=== PATIENT | male | born 1955 | race Caucasian/White ===

== ENCOUNTER 2018-09-01 09:33 | Emergency (ER) | payer MEDICARE, OTHER, SELFPAY ==
[2018-09-01 09:45] VITALS: BP 103/59; PULSE 61; RESP 18; TEMP 36.4; O2SAT 99
[2018-09-01 09:55] LABS: Bilirubin Small (Negative); Blood Trace-intact (Negative); Clarity Clear; Glucose Negative (Negative); Ketones Negative (Negative); Leukocyte Esterase Negative (Negative); Nitrite Negative (Negative); Specific Gravity 1.025 (1.005-1.025); Urobilinogen 0.2 EU/dL (Up TO 0.2)
[2018-09-01 10:15] LABS: Bacteria Negative HPF (Negative); C & S Indicated? No; Casts Negative LPF (Negative); Crystals Negative HPF (Negative); Epithelial Cells Few HPF (Negative); Mucus Negative (Negative); RBC 0-2 (0-2); WBC 0-2 HPF (0-5)
--- NOTE | 2018-09-01 10:29 | ED.GENADUL_ITS ---
Discharge Plan Disposition Patient Disposition: HOME Discharge Details Chief Complaint: Headache Clinical Impression: Right sided temporal headache, Proteinuria Primary Care Provider: Shahzad Domingo ED Provider: Pramod Rider Home Meds and New Rx's Prescriptions: Continued clopidogrel [Plavix] 75 MG tablet 75 mg PO DAILY RF: 0 citalopram 40 MG tablet 40 mg PO DAILY RF: 0 aspirin [Aspir-81] 81 MG tablet,delayed release (DR/EC) 81 mg PO DAILY RF: 0 levothyroxine 25 MCG tablet 75 mcg PO DAILY RF: 0 calcitriol 0.25 MCG capsule 0.25 mcg PO DAILY RF: 0 atorvastatin [Lipitor] 40 MG tablet 40 mg PO DAILY RF: 0 carvedilol 6.25 MG tablet 6.25 mg PO BID RF: 0 levetiracetam [Keppra] 250 MG tablet 500 mg PO BID RF: 0 levetiracetam [Keppra] 500 MG tablet 500 mg PO .AM MO// RF: 0 pantoprazole 40 MG tablet,delayed release (DR/EC) 40 mg PO DAILY RF: 0 Discharge Instructions Instructions: General Headache (ED) Additional Instructions: Your work-up in the emergency department today demonstrated increased blood flow on your CAT scan without any evidence of acute pathology. It has been recommended by the radiologist should your symptoms of headache persist that you follow-up with your primary care provider to discuss an MRI of your head. If your headache worsens or you develop concerning symptoms such as weakness, difficulty concentrating, visual changes, or sensory deficits you must return to the emergency department. Your urine today shows no signs of infection. However if you develop lower abdominal pain, flank or low back pain along with fever, muscle aches, sweats you must return to the emergency department. Follow[place] Dr. Perkins at [facility] [place]. Referrals: Shahzad Domingo MD [Primary Care Provider] - 2 days Discharge Data Discharge Date/Time-TO BE ENTERED AT DEPARTURE: 09/01/18 14:33 Medical Decision Making <ALEXIS Dodd - Last Filed: 09/01/18 15:15> Mr. Rangel is a 62-year-old nontoxic presenting with the above chief complaint. Vitals stable here.. Work-up today unremarkable for urinary tract infection. Regarding his headache which spontaneously resolved prior to arrival he shows no focal deficits here. No temporal pain and his sedimentation rate is just outside of normal reference range. I do not suspect temporal arteritis at this time. CTA head and neck was read as negative for dissection or aneurysm as per discussion and formal read by radiologist. Radiologist does note increased vascularity along the right temporal frontal and parietal lobes which may represent a vascular malformation. No evidence of mass or lesion. Recommendations going forward would be to follow-up outpatient for MRI brain and MRA head. He currently has no headache and feels well as mentioned above no UTIs here. Kidney function appears to be at baseline and he was given adequate IV hydration here in the emergency department. I discussed our work-up today with the patient and stressed the importance of close primary care follow-up. Strict return precautions provided. He is stable and ready for discharge at this time Imaging Data Radiologic Study: Imaging: CT Scan Radiologist's impression: EXAM: CT Angiography Head With Contrast EXAM DATE/TIME: 09/01/2018 10:22 AM CLINICAL HISTORY: 62 years old, male; Signs and symptoms; Other: Right sided headache, neck pain, pulsating TECHNIQUE: Imaging protocol: Axial computed tomographic angiography images of the head with intravenous contrast using CT angiography protocol. 3D rendering: MIP reconstructed images were created and reviewed. Radiation optimization: All CT scans at this facility use at least one of these dose optimization techniques: automated exposure control; mA and/or kV adjustment per patient size (includes targeted exams where dose is matched to clinical indication); or iterative reconstruction. Contrast material: OMNIPAQUE 350; Contrast volume: 70 ml; Contrast route: IV; COMPARISON: CT HEAD FACIALS WO 01/04/2014 4:08 PM FINDINGS: Right internal carotid artery: Unremarkable. Intracranial segment is patent with no significant stenosis. No aneurysm. Right anterior cerebral artery: Unremarkable. No occlusion or significant stenosis. No aneurysm. Right middle cerebral artery: Unremarkable. No occlusion or significant stenosis. No aneurysm. Right posterior cerebral artery: Unremarkable. No occlusion or significant stenosis. No aneurysm. Right vertebral artery: Unremarkable. No occlusion or significant stenosis. No aneurysm. SHIVANI RANGEL Preliminary Radiology Report Page 2 of 3 Left internal carotid artery: Unremarkable. Intracranial segment is patent with no significant stenosis. No aneurysm. Left anterior cerebral artery: Unremarkable. No occlusion or significant stenosis. No aneurysm. Left middle cerebral artery: Unremarkable. No occlusion or significant stenosis. No aneurysm. Left posterior cerebral artery: Unremarkable. No occlusion or significant stenosis. No aneurysm. Left vertebral artery: Unremarkable. No occlusion or significant stenosis. No aneurysm. Basilar artery: Unremarkable. No occlusion or significant stenosis. No aneurysm. HEAD: Brain: Increased vascularity in the right temporal, as well as, the lateral right frontal and parietal lobes with a prominent draining vein high in the right frontal lobe. Nonspecific ill-defined subcortical lentiform area of decreased attenuation in the right frontal and parietal lobes (axial series 4 images 96-100). Redemonstrated small area of encephalomalacia at the vertex of the right frontal lobe, axial series 4 image 108 (comparison axial series 2 image 53). No hemorrhage. Midline shift: No discrete mass. No midline shift. Ventricles: Redemonstrated asymmetry of the lateral ventricles, again left is greater than right, which can be a normal variant. IMPRESSION: 1. No stenosis or occlusion. 2. Increased vascularity in the right temporal, frontal and parietal lobes with a prominent draining vein high in the right frontal lobe. This may represent a vascular malformation. 3. Nonspecific ill-defined subcortical lentiform area of decreased attenuation in the right frontal and parietal lobes. This does not extend to the cortex and does not follow any typical pathology and may be artifactual. 4. Since patient's symptoms have resolved and there is no focal neurologic deficit, recommend further evaluation with outpatient MRI brain and MRA head. Results discussed with Pramod Fraga at 09/01/2018 1:50 PM EDT who advises no neurologic deficit on exam and confirms patient's history of 2 days ago having right neck and temporal pain and a feeling of blood whooshing from his neck to his right temporal region, however, the symptoms have resolved. EXAM: CT Angiography Neck With Contrast EXAM DATE/TIME: 09/01/2018 10:22 AM CLINICAL HISTORY: 62 years old, male; Signs and symptoms; Other: Right sided headache, neck pain, pulsating TECHNIQUE: SHIVANI RANGEL Preliminary Radiology Report AIR CONDITIONING UNIT TESTER (QA) DISCREPANCY? If there is a discrepancy between the preliminary and final interpretation, please notify [facility] via [email or web address]. If you do not have access to our QA portal, call our QA team at [phone] CONFIDENTIALITY STATEMENT This report is intended only for the use of the referring physician, and only in accordance with law, If you received this in error, call [phone] Page 3 of 3 Imaging protocol: Axial computed tomographic angiography images of the neck with intravenous contrast using CT angiography protocol. 3D rendering: MIP reconstructed images were created and reviewed. Radiation optimization: All CT scans at this facility use at least one of these dose optimization techniques: automated exposure control; mA and/or kV adjustment per patient size (includes targeted exams where dose is matched to clinical indication); or iterative reconstruction. COMPARISON: CT HEAD FACIALS WO 01/04/2014 4:08 PM FINDINGS: VASCULATURE: Right common carotid artery: Tortuous, medial course of the right common carotid artery. No stenosis or occlusion. Right internal carotid artery: Calcification at the right carotid bulb and proximal right internal carotid artery without significant stenosis. Right external carotid artery: Unremarkable. No occlusion or significant stenosis. Right vertebral artery: Unremarkable. No significant stenosis. No dissection or occlusion. Left common carotid artery: Tortuous left common carotid artery without stenosis or occlusion. Left internal carotid artery: Calcification at the left carotid bulb and proximal left internal carotid artery without significant stenosis. Left external carotid artery: Unremarkable. No occlusion or significant stenosis. Left vertebral artery: Unremarkable. No significant stenosis. No dissection or occlusion. NECK: Bones/joints: No acute fracture. Soft tissues: Unremarkable. No significant soft tissue swelling. IMPRESSION: No significant stenosis by NASCET criteria. COMMENT: Reference per NASCET criteria for degree of stenosis: Mild: less than 50% stenosis. Moderate: 50- 69% stenosis. Severe: 70-94% stenosis. Near occlusion: 95-99% stenosis. <Tip Dean MD - Last Filed: 09/01/18 11:14> ECG Data Attestation: I personally reviewed and interpreted this ECG (s) as follows: Prior ECG tracings: not available for review Interpretation: sinus rhythm, rate of 60, pr 196, qtc 412 HPI <ALEXIS Dodd - Last Filed: 09/01/18 15:15> General Date/Time Provider Initiated Documentation: 09/01/18 09:44 . HPI Narrative: Patient is a 62-year-old male with a significant past medical history of right kidney transplant, CABG x3, hypertension who presents to the emergency department with a primary chief complaint of dysuria x24 hrs. He states that 2 days ago he developed a mild cough and subsequently experienced severe 10 out of 10 right-sided neck and temporal pain. He described the pain as a throbbing sensation. He felt as though blood was rushing to his cheondoism from his neck. He denies any history of headaches. Headache was gradual on its onset. No loss of consciousness, visual disturbance, vomiting. He denies any fevers or chills. No abdominal pain. No chest pain or shortness of breath. He states his headache and neck pain has resolved. He is immunosuppressed status post kidney transplant 3 years ago. He is currently transitioning his care to [facility] and is scheduled to see Dr. Perkins next month. He denies any blood in his urine. No urinary incontinence or frequency. Related Data Home Medications Medication Instructions Recorded Confirmed aspirin [Aspir-81] 81 mg PO DAILY 08/18/12 09/01/18 citalopram 40 mg PO DAILY 08/18/12 09/01/18 calcitriol 0.25 mcg PO DAILY 02/25/13 09/01/18 levothyroxine 75 mcg PO DAILY 02/25/13 09/01/18 atorvastatin [Lipitor] 40 mg PO DAILY 05/26/14 09/01/18 carvedilol 6.25 mg PO BID 02/19/16 09/01/18 levetiracetam [Keppra] 500 mg PO BID 02/19/16 09/01/18 clopidogrel [Plavix] 75 mg PO DAILY tab-cap 05/11/16 09/01/18 levetiracetam [Keppra] 500 mg PO .AM MO/WE/FR 10/24/16 09/01/18 pantoprazole 40 mg PO DAILY 10/24/16 09/01/18 Allergies Allergy/AdvReac Type Severity Reaction Status Date / Time sodium bicarbonate Allergy Severe seizures Unverified 09/01/18 09:52 lisinopril Allergy Intermediate Hives Unverified 09/01/18 09:52 gabapentin AdvReac Intermediate related to Unverified 09/01/18 09:52 dialysis furosemide [From Lasix] AdvReac Nausea Unverified 09/01/18 09:52 General Stated Complaint: Urinary MILAGROS: 3 Review of Systems <ALEXIS Dodd Last Filed: 09/01/18 15:15> Constitutional Denies body ache(s), Denies chills, Denies fatigue, Denies fever(s), Reports headache(s), Denies lethargy, Denies night sweats and Denies weight loss Eyes Denies blind spots, Denies blurry vision, Denies change in vision, Denies eye discharge, Denies dry eyes, Denies floaters, Denies irritation, Denies loss of peripheral vision, Denies loss of vision, Denies eye pain, Denies seeing flashes, Denies photophobia, Denies spots in vision and Denies tunnel vision ENT Denies abnormal hearing, Denies vertigo, Denies dizziness, Denies facial pain, Reports headache(s), Denies hearing loss, Denies hoarseness, Denies neck mass, Reports neck pain, Denies nose pain, Denies sore throat, Denies throat swelling and Denies tongue swelling Cardiovascular Denies chest pain, Denies chest pain at rest, Denies chest pain with activity, Denies diaphoresis, Denies syncope, Denies rapid heart rate, Denies pedal edema, Denies edema, Denies irregular heart rhythm, Denies leg edema, Denies lightheadedness, Denies radiating jaw, neck or arm pain, Denies palpitations, Denies dyspnea and Denies dyspnea on exertion Respiratory Denies dyspnea and Denies dyspnea on exertion Gastrointestinal Denies abdominal pain, Denies constipation, Denies diarrhea, Denies loose stools, Denies nausea and Denies vomiting Genitourinary Denies genital pain, Reports dysuria, Denies flank pain, Denies penile discharge, Denies scrotal swelling, Denies testicular mass, Denies testicular pain, Denies urinary frequency, Denies urinary hesitancy, Denies urinary incontinence and Denies urinary urgency Musculoskeletal Denies abnormal gait, Denies back pain, Denies myalgias, Reports neck pain, Denies numbness and Denies tingling Integumentary/Breasts Denies rash Neurologic Denies abnormal hearing, Denies abnormal movements, Denies abnormal speech, Denies abnormal gait, Denies vertigo, Denies dizziness, Denies syncope, Reports headache(s), Denies focal weakness, Denies loss of vision, Denies memory loss, Denies numbness, Denies tingling and Denies paresthesias Psychiatric Denies memory loss Endocrine Denies fatigue and Denies palpitations Allergic/Immunologic Denies throat swelling and Denies tongue swelling PFSH <ALEXIS Dodd - Last Filed: 09/01/18 15:15> Surgical History Colonoscopy - MAC (12/03/15) Social History Smoking/Tobacco Use Status: Never Alcohol Intake: never Drug use: Never Do you feel safe at home: Yes Do you feel safe in your relationship?: Yes Exam <ALEXIS Dodd - Last Filed: 09/01/18 15:15> Const General: cooperative, healthy appearing, comfortable and no acute distress Nutritional Appearance: obese Orientation: alert, awake and oriented x3 HENMT Head: normal to inspection, normocephalic, atraumatic, no scalp lesions, no scalp tenderness, no temporal artery tenderness and No periorbital ecchymosis Ears: hearing grossly normal bilaterally General nose exam: external nose normal Face and sinus: normal facial exam, sinuses nontender, no erythema, no edema and no fluctuance Mouth: oral mucosae normal, oropharynx normal and moist mucous membranes Teeth and gingiva: dentition normal Throat: posterior oropharynx normal Eyes General: appearance normal, both eyes and all related structures Visual Magaña: normal visual magaña by confrontation Alignment and Position: alignment normal Periorbital: periorbital findings normal Eyelids: eyelids normal Conjunctivae: conjunctivae normal Cornea: corneas normal Pupils: PERRL, normal by confrontation and accommodation normal EOM: EOM intact bilaterally Direct ophthalmoscopy: normal light reflex Neck Neck: normal visual inspection, full ROM, no lymphadenopathy, no meningeal signs, trachea midline and supple Thyroid: thyroid normal Carotids: normal carotid upstroke Chest Chest: normal inspection of the chest and normal palpation of entire chest wall Resp Effort & Inspection: normal respiratory effort Auscultation: clear to auscultation bilaterally Cardio Jugular venous pressure: no JVD Rate: regular rate and bradycardic Rhythm: regular rhythm Heart Sounds: S1 normal and S2 normal Pulses: normal peripheral pulses GI Inspection: normal to inspection Palpation: soft Back/Spine/Pelvis Back: no CVA tenderness Skin General skin exam: no rashes or lesions noted Neuro General: alert, awake and oriented x3 Cranial Nerves: CN's II-XI intact bilaterally, PERRL, accommodation normal and EOM intact bilaterally Cognition: normal cognition Speech: speech normal Gait: normal gait Motor: muscle tone normal throughout Sensory Exam: no sensory deficits noted Extrem General: normal to inspection Course <ALEXIS Dodd - Last Filed: 09/01/18 15:15> Vital Signs Temperature 36.4 C L 09/01/18 09:45 Pulse 61 09/01/18 09:45 Respiratory Rate 18 09/01/18 09:45 Blood Pressure 103/59 L 09/01/18 09:45 Pulse Oximetry 99 09/01/18 09:45 Temperature 36.4 C L 09/01/18 09:45 Temperature Source Temporal Artery Scan 09/01/18 09:45 Pulse 61 09/01/18 09:45 Respiratory Rate 18 09/01/18 09:45 Respiratory Effort Non-Labored 09/01/18 09:51 Blood Pressure 103/59 L 09/01/18 09:45 Blood Pressure Position Sitting 09/01/18 09:45 Pulse Oximetry 99 09/01/18 09:45 Oxygen Delivery Method Room Air 09/01/18 09:45 Oxygen Flow Rate 0 09/01/18 09:45 Pain Level 0 09/01/18 09:59 Lab/Test Results Lab/Test Results: Laboratory Tests Range/Units 09/01/18 09:41 Urine Color (Yellow) Yellow Urine Clarity Clear Urine pH (5-8) 6.0 Ur Specific [place] (1.005-1.025) 1.025 Urine Protein (Negative) mg/dL 100 H Urine Ketones (Negative) mg/dL Negative Urine Blood (Negative) Trace-intact H Urine Nitrite (Negative) Negative Urine Bilirubin (Negative) Small H Urine Urobilinogen (Up TO 0.2) EU/dL 0.2 Ur Leukocyte Esterase (Negative) Negative Urine RBC (0-2) 0-2 Urine WBC (0-5) HPF 0-2 Ur Epithelial Cells (Negative) HPF Few Urine Crystals (Negative) HPF Negative Urine Bacteria (Negative) HPF Negative Urine Casts (Negative) LPF Negative Urine Mucus (Negative) Negative Ur Culture Indicated? No Urine Glucose (Negative) mg/dL Negative
[2018-09-01 11:10] LABS: Abs Immature Grans 0.08 k/cumm (0.0-0.09); Absolute Basophil Count 0.01 k/cumm (0.0-0.2); Absolute Eosinophil Count 0.04 k/cumm (0.0-0.7); Absolute Lymphocyte Count 1.53 k/cumm (1.2-3.4); Absolute Monocyte Count 0.82 k/cumm (0.11-0.7); Absolute Neutrophil Count 6.41 k/cumm (1.2-6.7); Basophils % 0.1; Eosinophils % 0.4; HCT 37.4 % (40.0-50.0); Immature Grans % 0.9; Lymphocytes % 17.2; Mean Corp. HGB Concentration 32.1 g/dL (32.0-36.0); Mean Corpuscular Hemoglobin 31.4 pg (27.0-33.0); Mean Corpuscular Volume 97.9 fL (80-95); Mean Platelet Volume 10.2 fL (8.0-11.0); Monocytes % 9.2; Neutrophils % 72.2; Platelet Count 106 x1000/uL (130-400); RBC 3.82 m/cumm (4.50-6.00); RBC Distribution Width 14.4 % (11.8-14.1); White Blood Cell Count 8.89 k/cumm (4.4-10.8)
[2018-09-01 11:17] LABS: ALT 32 U/L (12-78); AST 22 U/L (15-37); Albumin 3.2 g/dL (3.4-5.0); Alkaline Phosphatase 92 U/L (46-116); Anion Gap 6.6 mmol/L (3-11); BUN 24 mg/dL (7-18); Bilirubin, Total 0.7 mg/dL (0.2-1.0); CO2 26.4 mmol/L (21.0-32.0); CREATININE 1.66 mg/dL (0.70-1.30); Calcium 9.3 mg/dL (8.5-10.1); Chloride 101 mmol/L (98-107); Estimated GFR 42.05 (mL/min/1.73m2); Glucose 119 mg/dL (70-100); Magnesium 1.5 mg/dL (1.8-2.4); Potassium 4.6 mmol/L (3.5-5.1); Sodium 134 mmol/L (136-145); Total Protein 6.7 g/dL (6.4-8.2); Troponin I < 0.02 ng/mL (0.00-0.06)
[2018-09-01 11:18] LABS: PTT Activated 25.4 sec (21.0-31.4); Prothrombin Time 10.4 sec (9.3-11.0)
[2018-09-01] MEDS: Lactated Ringers 500 ML 1000 ML IV ×2 (11:30→12:54)
[2018-09-01 12:06] LABS: ESR 39 MM/HR (1-20)
[2018-09-01] MEDS: Omnipaque 350 MG/ML 100 ML BTL IJ (12:28)
[2018-09-01] MEDS: Normal Saline Flush 10 ML SYR IVP (12:29)
--- NOTE | 2018-09-01 12:31 | DI.CT_ITS ---
SYMPTOM/DIAGNOSIS: RT SIDED HEADACHE, NECK PAIN, PULSATING PAIN CTA CERVICOCRANIAL REGION: CT angiography was performed with multi slice acquisition and multi planar and 3D reconstruction. CT angiography of the cervicocranial region was performed with intravenous infusion of 70 cc's of Omnipaque 350. Images obtained through the lung apices are unremarkable. No cervical mass or adenopathy. Tracheolaryngeal structures appear intact. Orbital and temporal bone structures appear intact. 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 Aortic arch appears intact. Common carotid arteries bilaterally are of normal diameter. There is mild atheromatous calcific change at the carotid bifurcations bilaterally. No significant common or internal carotid artery stenosis. Internal carotid arteries bilaterally are of normal diameter to the region of the skull base. Intracranial internal carotid arteries are of normal diameter. Mild atheromatous calcific change noted. Middle cerebral, anterior cerebral and posterior cerebral arteries are of normal diameter with no aneurysm, dissection or stenosis. Basilar and vertebral arteries appare normal with no evidence of aneurysm, dissection or stenosis. There are findings suggesting increased vascularity of the right hemisphere compared to the left with a prominent draining vein high in the right frontal lobe, there is a questionable area of decreased attenuation high in the right frontal and parietal lobes, this is of uncertain significance. The possibility of mass lesion or subdural collection not excluded. Correlation with brain MRI recommended. No evidence of acute intracranial hemorrhage. Vascular malformation not excluded. CONCLUSION: No significant pathology of the major vessels of the neck and head as described above. However there appears to be hyperemia involving the small vessels of the right hemisphere with question of a prominent draining vein over the convexity and there are questionable areas of decreased attenuation in the high right parietal and frontal regions. Correlation with brain MRI requested to evaluate these findings and assess the possibility of stroke, neoplasm, subdural collection or vascular malformation.
[2018-09-01 12:36] VITALS: BP 98/79; PULSE 59; TEMP 36.8; O2SAT 100
[2018-09-01 13:06] VITALS: BP 130/69; PULSE 61; RESP 15; O2SAT 99
--- NOTE | 2018-09-01 14:11 | DI.VRAD_ITS ---
EXAM: CT Angiography Head With Contrast EXAM DATE/TIME: 09/01/2018 10:22 AM CLINICAL HISTORY: 62 years old, male; Signs and symptoms; Other: Right sided headache, neck pain, pulsating TECHNIQUE: Imaging protocol: Axial computed tomographic angiography images of the head with intravenous contrast using CT angiography protocol. 3D rendering: MIP reconstructed images were created and reviewed. Radiation optimization: All CT scans at this facility use at least one of these dose optimization techniques: automated exposure control; mA and/or kV adjustment per patient size (includes targeted exams where dose is matched to clinical indication); or iterative reconstruction. Contrast material: OMNIPAQUE 350; Contrast volume: 70 ml; Contrast route: IV; COMPARISON: CT HEAD FACIALS WO 01/04/2014 4:08 PM FINDINGS: Right internal carotid artery: Unremarkable. Intracranial segment is patent with no significant stenosis. No aneurysm. Right anterior cerebral artery: Unremarkable. No occlusion or significant stenosis. No aneurysm. Right middle cerebral artery: Unremarkable. No occlusion or significant stenosis. No aneurysm. Right posterior cerebral artery: Unremarkable. No occlusion or significant stenosis. No aneurysm. Right vertebral artery: Unremarkable. No occlusion or significant stenosis. No aneurysm. Left internal carotid artery: Unremarkable. Intracranial segment is patent with no significant stenosis. No aneurysm. Left anterior cerebral artery: Unremarkable. No occlusion or significant stenosis. No aneurysm. Left middle cerebral artery: Unremarkable. No occlusion or significant stenosis. No aneurysm. Left posterior cerebral artery: Unremarkable. No occlusion or significant stenosis. No aneurysm. Left vertebral artery: Unremarkable. No occlusion or significant stenosis. No aneurysm. Basilar artery: Unremarkable. No occlusion or significant stenosis. No aneurysm. HEAD: Brain: Increased vascularity in the right temporal, as well as, the lateral right frontal and parietal lobes with a prominent draining vein high in the right frontal lobe. Nonspecific ill-defined subcortical lentiform area of decreased attenuation in the right frontal and parietal lobes (axial series 4 images 96-100). Redemonstrated small area of encephalomalacia at the vertex of the right frontal lobe, axial series 4 image 108 (comparison axial series 2 image 53). No hemorrhage. Midline shift: No discrete mass. No midline shift. Ventricles: Redemonstrated asymmetry of the lateral ventricles, again left is greater than right, which can be a normal variant. IMPRESSION: 1. No stenosis or occlusion. 2. Increased vascularity in the right temporal, frontal and parietal lobes with a prominent draining vein high in the right frontal lobe. This may represent a vascular malformation. 3. Nonspecific ill-defined subcortical lentiform area of decreased attenuation in the right frontal and parietal lobes. This does not extend to the cortex and does not follow any typical pathology and may be artifactual. 4. Since patient's symptoms have resolved and there is no focal neurologic deficit, recommend further evaluation with outpatient MRI brain and MRA head. Results discussed with Pramod Fraga at 09/01/2018 1:50 PM EDT who advises no neurologic deficit on exam and confirms patient's history of 2 days ago having right neck and temporal pain and a feeling of blood whooshing from his neck to his right temporal region, however, the symptoms have resolved. EXAM: CT Angiography Neck With Contrast EXAM DATE/TIME: 09/01/2018 10:22 AM CLINICAL HISTORY: 62 years old, male; Signs and symptoms; Other: Right sided headache, neck pain, pulsating TECHNIQUE: Imaging protocol: Axial computed tomographic angiography images of the neck with intravenous contrast using CT angiography protocol. 3D rendering: MIP reconstructed images were created and reviewed. Radiation optimization: All CT scans at this facility use at least one of these dose optimization techniques: automated exposure control; mA and/or kV adjustment per patient size (includes targeted exams where dose is matched to clinical indication); or iterative reconstruction. COMPARISON: CT HEAD FACIALS WO 01/04/2014 4:08 PM FINDINGS: VASCULATURE: Right common carotid artery: Tortuous, medial course of the right common carotid artery. No stenosis or occlusion. Right internal carotid artery: Calcification at the right carotid bulb and proximal right internal carotid artery without significant stenosis. Right external carotid artery: Unremarkable. No occlusion or significant stenosis. Right vertebral artery: Unremarkable. No significant stenosis. No dissection or occlusion. Left common carotid artery: Tortuous left common carotid artery without stenosis or occlusion. Left internal carotid artery: Calcification at the left carotid bulb and proximal left internal carotid artery without significant stenosis. Left external carotid artery: Unremarkable. No occlusion or significant stenosis. Left vertebral artery: Unremarkable. No significant stenosis. No dissection or occlusion. NECK: Bones/joints: No acute fracture. Soft tissues: Unremarkable. No significant soft tissue swelling. IMPRESSION: No significant stenosis by NASCET criteria. COMMENT: Reference per NASCET criteria for degree of stenosis: Mild: less than 50% stenosis. Moderate: 50-69% stenosis. Severe: 70-94% stenosis. Near occlusion: 95-99% stenosis. Results discussed with Pramod Fraga at 09/01/2018 1:50 PM EDT. Dictated and Authenticated by: Avani Storm MD. Ordering:HARSHAL Benavidez MD
[2018-09-01 14:20] VITALS: BP 142/93; PULSE 57; RESP 15; TEMP 36.5; O2SAT 99
[2018-09-01 14:30] VITALS: BP 142/93; PULSE 57; RESP 15; TEMP 36.5; O2SAT 99
== END 2018-09-01 14:33 | disposition home or self-care (01) ==
PROVIDERS: Emergency Provider Physician Assistant; PCP Internal Medicine
DX: R51 Headache (principal); R80.9 Proteinuria, unspecified; R30.0 Dysuria; R93.0 Abnormal findings on diagnostic imaging of skull and head, not elsewhere classified
CPT/HCPCS: 36415; 70496; 70498; 80053; 85652; 93005; 96360; 99285; 81003; 81015; 83735; 84484; 85025; 85610; 85730; 93010; J3490

== ENCOUNTER 2018-09-03 08:10 | Emergency (ER) | payer MEDICARE, OTHER, SELFPAY ==
[2018-09-03] VITALS (23 sets, daily range): BP systolic 114–138; BP diastolic 49–73; PULSE 55–67; RESP 9–18; TEMP 36.5; O2SAT 76–98
--- NOTE | 2018-09-03 08:23 | W.ED.GENAD ---
Discharge Plan Disposition Patient Disposition: [facility] Condition: Stable Discharge Details Chief Complaint: CVA/TIA Clinical Impression: Subacute subdural hematoma, Facial paresthesia, Arm paresthesia, left Primary Care Provider: Shahzad Domingo ED Provider: Teresa Law Home Meds and New Rx's Prescriptions: No Action clopidogrel [Plavix] 75 MG tablet 75 mg PO DAILY RF: 0 citalopram 40 MG tablet 40 mg PO DAILY RF: 0 aspirin [Aspir-81] 81 MG tablet,delayed release (DR/EC) 81 mg PO DAILY RF: 0 levothyroxine 25 MCG tablet 75 mcg PO DAILY RF: 0 calcitriol 0.25 MCG capsule 0.25 mcg PO DAILY RF: 0 atorvastatin [Lipitor] 40 MG tablet 40 mg PO DAILY RF: 0 levetiracetam [Keppra] 250 MG tablet 500 mg PO BID RF: 0 citalopram 40 mg Tablet 20 mg PO DAILY RF: 0 Astagraf XL 1 mg Capsule,Extended Release 24hr 4 mg PO QAM RF: 0 mycophenolate sodium [Myfortic] 360 mg Tablet,Delayed Release (Dr/Ec) 360 mg PO BID RF: 0 Medical Decision Making 62-year-old male with a history of morbid obesity, CAD, hypertension, hyperlipidemia, gout, depression, obstructive sleep apnea, seizures, 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 Also admits to diffuse headache for the past 4 days. Patient was seen here 2 days ago for dysuria and for this current complaint of headache. He had a CTA head and neck which noted a possible vascular formation in the right temporal side which was recommended to evaluate further with an outpatient MRI/MRA brain. The Vrad report from CTA head/neck from 09/01/18 noted: 1. No stenosis or occlusion. 2. Increased vascularity in the right temporal, frontal and parietal lobes with a prominent draining vein high in the right frontal lobe. This may represent a vascular malformation. 3. Nonspecific ill-defined subcortical lentiform area of decreased attenuation in the right frontal and parietal lobes. This does not extend to the cortex and does not follow any typical pathology and may be artifactual. 4. Since patient's symptoms have resolved and there is no focal neurologic deficit, recommend further evaluation with outpatient MRI brain and MRA head. The in-house radiologist report CTA head/neck on 09/01/2018 noted: No significant pathology of the major vessels of the neck and head as described above. However there appears to be hyperemia involving the small vessels of the right hemisphere with question of a prominent draining vein over the convexity and there are questionable areas of decreased attenuation in the high right parietal and frontal regions. Correlation with brain MRI requested to evaluate these findings and assess the possibility of stroke, neoplasm, subdural collection or vascular malformation. On today's visit, vitals within normal limits on arrival. Patient was able to ambulate back to the ED room. He is complaining of his diffuse headache 11/07 but denies any complaints of numbness or weakness at this time. EKG notes a rate of 63 and sinus with T wave inversion in lateral leads but no acute ST findings. We will send for stat CT head and check screening labs and chest x-ray. Will attempt to obtain MRI MRA brain today. [id number] -- d/w radiologist Dr. Chaney --patient has a subacute 19 mm right-sided frontal parietal subdural hematoma with approximately 2 mm midline shift. Will call [facility] neurosurgery for transfer. [id number] -- d/w [facility] neurosurgery Dr. Maya - accepts patient for transfer to the ER. Accepting physician in the ER Dr. Mclean. Dr. Maya is requesting 2 g of IV Keppra given. Patient has not yet taken any of his medications this morning. Patient is cleared to take his tacrolimus this morning. Patient is hemodynamically stable, resting comfortably. Medical Records Medical records reviewed: Yes I reviewed the patient's medical records. Imaging Data Radiologic Study: Radiologist's impression: PA AND LATERAL CHEST: There is an apparent coronary artery stent. Heart size is within normal limits. Lungs are grossly clear with minimal left sided scarring. No pleural effusion is seen. CONCLUSION: No evidence of acute disease. Radiologic Study #2: Radiologist's impression: NONCONTRAST HEAD CT: A noncontrast cranial CT was performed. The examination is compared with previous examination of 09/[address] angiogram. On today's examination, the area of questioned hypoattenuation seen in the right parietal region on the CTA is seen to represent a subdural hematoma with mixed low and high attenuation regions consistent with subacute etiology. There is mild effacement of the cerebral sulci on the right and there is decreased size of right lateral ventricle compared to left. There may be midline shift by about 2 mm. to the left. CONCLUSION: Right subdural hematoma as described above, this appears to be subacute. Lab Data Lab results reviewed: Yes I reviewed the patient's lab results. Laboratory Tests Range/Units 09/03/18 09/03/18 09/03/18 08:25 08:25 08:25 WBC (4.4-10.8) k/cumm 7.15 RBC (4.50-6.00) m/cumm 3.79 L Hgb (13.5-17.5) g/dL 11.9 L Hct (40.0-50.0) % 36.4 L MCV (80-95) fL 96.0 H MCH (27.0-33.0) pg 31.4 MCHC (32.0-36.0) g/dL 32.7 RDW (11.8-14.1) % 14.1 Plt Count (130-400) x1000/uL 123 L MPV (8.0-11.0) fL 10.3 Immature Gran % 0.7 Neutrophils % 63.0 Lymphocytes % 27.1 Monocytes % 8.5 Eosinophils % 0.6 Basophils % 0.1 Absolute Neutrophils (1.2-6.7) k/cumm 4.50 Absolute Lymphocytes (1.2-3.4) k/cumm 1.94 Absolute Monocytes (0.11-0.7) k/cumm 0.61 Absolute Eosinophils (0.0-0.7) k/cumm 0.04 Absolute Basophils (0.0-0.2) k/cumm 0.01 PT (9.3-11.0) sec 10.2 INR (0.9-1.1) 1.0 APTT (21.0-31.4) sec 21.5 Sodium (136-145) mmol/L 136 Potassium (3.5-5.1) mmol/L 4.2 Chloride (98-107) mmol/L 103 Carbon Dioxide (21.0-32.0) mmol/L 25.3 Anion Gap (3-11) mmol/L 7.7 BUN (7-18) mg/dL 27 H Creatinine (0.70-1.30) mg/dL 1.72 H Estimated GFR/1.73 m2 (mL/min/1.73m2) 40.36 Glucose (70-100) mg/dL 112 H Calcium (8.5-10.1) mg/dL 9.2 Magnesium (1.8-2.4) mg/dL 1.6 L Total Bilirubin (0.2-1.0) mg/dL 0.3 AST (15-37) U/L 22 ALT (12-78) U/L 28 Alkaline Phosphatase (46-116) U/L 85 Troponin I (0.00-0.06) ng/mL < 0.02 Total Protein (6.4-8.2) g/dL 6.9 Albumin (3.4-5.0) g/dL 3.2 L ECG Data Attestation: I personally reviewed and interpreted this ECG (s) as follows: Interpretation: rate of 63, sinus, t wave inversion V5-V6. QTc 397. QRS 108. HPI General Mode of arrival: ambulatory. Date/Time Provider Initiated Documentation: 09/03/18 08:22. Limitations to Documentation: no limitations. Information obtained by: patient. HPI Narrative: Patient is a 62-year-old male with a history of obesity, CAD, hypertension, hyperlipidemia, gout, depression, IgA nephropathy with kidney transplant, CABG and coronary stents who presents with left-sided facial and left arm numbness and weakness and entire tongue numbness that lasted approximately 15 minutes starting 30 minutes ago at home and then resolved. Patient states he got out of bed and felt fine and then walked to a family member in the house who noted that patient appeared to have slurred speech and left-sided facial droop. Patient states he attempted to lift something with his left hand and felt that his left hand was weak and numb. He states his symptoms are completely resolved at present. Patient also admits to diffuse headache for the past 4 days. States the headache is throbbing and currently 7/10. He denies any blurry vision, dizziness, leg weakness or numbness, chest pain, shortness of breath. Patient was seen here 2 days ago for dysuria and headache and was discharged home. Patient states his dysuria is now resolved. Patient denies a history of CVA. He had a kidney transplant 3 years ago due to IgA nephropathy. Related Data Home Medications Medication Instructions Recorded Confirmed aspirin [Aspir-81] 81 mg PO DAILY 08/18/12 09/03/18 citalopram 40 mg PO DAILY 08/18/12 09/03/18 calcitriol 0.25 mcg PO DAILY 02/25/13 09/03/18 levothyroxine 75 mcg PO DAILY 02/25/13 09/03/18 atorvastatin [Lipitor] 40 mg PO DAILY 05/26/14 09/03/18 levetiracetam [Keppra] 500 mg PO BID 02/19/16 09/03/18 clopidogrel [Plavix] 75 mg PO DAILY tab-cap 05/11/16 09/03/18 citalopram 20 mg PO DAILY 09/03/18 09/03/18 mycophenolate sodium [Myfortic] 360 mg PO BID 09/03/18 09/03/18 tacrolimus [Astagraf XL] 4 mg PO QAM 09/03/18 09/03/18 Allergies Allergy/AdvReac Type Severity Reaction Status Date / Time sodium bicarbonate Allergy Severe seizures Unverified 09/03/18 08:31 lisinopril Allergy Intermediate Hives Unverified 09/03/18 08:31 gabapentin AdvReac Intermediate related to Unverified 09/03/18 08:31 dialysis furosemide [From Lasix] AdvReac Nausea Unverified 09/03/18 08:31 General Stated Complaint: CVA/TIA MILAGROS: 2 Review of Systems Review of Systems All systems reviewed & are unremarkable except as noted in HPI and below Constitutional Reports as per HPI, Denies chills, Denies fever(s) and Reports headache(s) Eyes Denies blurry vision ENT Denies dizziness, Reports headache(s), Denies sore throat and Denies throat swelling Cardiovascular Denies chest pain and Denies dyspnea Respiratory Denies cough and Denies dyspnea Gastrointestinal Denies abdominal pain, Denies diarrhea and Denies vomiting Genitourinary Denies hematuria and Denies dysuria Musculoskeletal Denies back pain and Reports numbness Integumentary/Breasts Denies lesions and Denies rash Neurologic Denies dizziness, Reports headache(s), Reports focal weakness and Reports numbness Allergic/Immunologic Denies throat swelling [facility] Medical History Hx of hyperlipidemia (Acute) IgA nephropathy (Acute) Coronary artery disease (Chronic) Depression (Chronic) Gout (Chronic) HTN (hypertension) (Chronic) Obstructive sleep apnea (Chronic) Renal failure (Chronic) Seizure disorder (Chronic) Surgical History History of eye surgery (Acute) Kidney transplant recipient (Acute) History of coronary artery stent placement (Chronic) Hx of CABG (Chronic) Colonoscopy - MAC (12/03/15) Social History Smoking/Tobacco Use Status: Never Alcohol Intake: never Drug use: Never Do you feel safe at home: Yes Do you feel safe in your relationship?: Yes Exam Const General: cooperative and no acute distress HENMT Head: normal to inspection Face and sinus: normal facial exam Eyes General: appearance normal, both eyes and all related structures EOM: EOM intact bilaterally Neck Neck: normal visual inspection and No submandibular swelling Lymphatic: no lymphadenopathy noted Chest Chest: normal inspection of the chest and no tenderness Resp Effort & Inspection: normal respiratory effort and able to speak in complete sentences Auscultation: clear to auscultation bilaterally Cardio Rate: regular rate Rhythm: regular rhythm GI Inspection: normal to inspection and obesity Palpation: soft, not firm, not rigid and nontender Auscultation: normal bowel sounds Skin General skin exam: no rashes or lesions noted Neuro General: alert, awake, oriented x3, moves all extremities and no focal motor deficits Cranial Nerves: CN's II-XI intact bilaterally Cognition: normal cognition Speech: speech normal Motor: muscle tone normal throughout and strength 5/5 throughout Sensory Exam: no sensory deficits noted Extrem General: normal to inspection, full ROM and no edema Psych Appearance: grossly normal Mental Status: mental status grossly normal Speech and Movement: speech and movement normal Affect: normal affect Course Vital Signs Temperature 97.7 F 09/03/18 08:14 Pulse 63 09/03/18 08:14 Respiratory Rate 16 09/03/18 08:14 Blood Pressure 138/56 L 09/03/18 08:14 Pulse Oximetry 97 09/03/18 08:14 Temperature 97.7 F 09/03/18 08:14 Temperature Source Temporal Artery Scan 09/03/18 08:14 Pulse 63 09/03/18 08:14 Respiratory Rate 16 09/03/18 08:14 Blood Pressure 138/56 L 09/03/18 08:14 Blood Pressure Position Sitting 09/03/18 08:14 Pulse Oximetry 97 09/03/18 08:14 Oxygen Delivery Method Room Air 09/03/18 08:14 Oxygen Flow Rate 0 09/03/18 08:14 Pain Level 7 09/03/18 08:14
--- NOTE | 2018-09-03 08:28 | ED.GENADUL_ITS ---
Discharge Plan Disposition Patient Disposition: [facility] Condition: Stable Discharge Details Chief Complaint: CVA/TIA Clinical Impression: Subacute subdural hematoma, Facial paresthesia, Arm paresthesia, left Primary Care Provider: Shahzad Domingo ED Provider: Teresa Law Home Meds and New Rx's Prescriptions: No Action clopidogrel [Plavix] 75 MG tablet 75 mg PO DAILY RF: 0 citalopram 40 MG tablet 40 mg PO DAILY RF: 0 aspirin [Aspir-81] 81 MG tablet,delayed release (DR/EC) 81 mg PO DAILY RF: 0 levothyroxine 25 MCG tablet 75 mcg PO DAILY RF: 0 calcitriol 0.25 MCG capsule 0.25 mcg PO DAILY RF: 0 atorvastatin [Lipitor] 40 MG tablet 40 mg PO DAILY RF: 0 levetiracetam [Keppra] 250 MG tablet 500 mg PO BID RF: 0 citalopram 40 mg Tablet 20 mg PO DAILY RF: 0 Astagraf XL 1 mg Capsule,Extended Release 24hr 4 mg PO QAM RF: 0 mycophenolate sodium [Myfortic] 360 mg Tablet,Delayed Release (Dr/Ec) 360 mg PO BID RF: 0 Medical Decision Making 62-year-old male with a history of morbid obesity, CAD, hypertension, hyperlipidemia, gout, depression, obstructive sleep apnea, seizures, 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 Also admits to diffuse headache for the past 4 days. Patient was seen here 2 days ago for dysuria and for this current complaint of headache. He had a CTA head and neck which noted a possible vascular formation in the right temporal side which was recommended to evaluate further with an outpatient MRI/MRA brain. The Vrad report from CTA head/neck from 09/01/18 noted: 1. No stenosis or occlusion. 2. Increased vascularity in the right temporal, frontal and parietal lobes with a prominent draining vein high in the right frontal lobe. This may represent a vascular malformation. 3. Nonspecific ill-defined subcortical lentiform area of decreased attenuation in the right frontal and parietal lobes. This does not extend to the cortex and does not follow any typical pathology and may be artifactual. 4. Since patient's symptoms have resolved and there is no focal neurologic deficit, recommend further evaluation with outpatient MRI brain and MRA head. The in-house radiologist report CTA head/neck on 09/01/2018 noted: No significant pathology of the major vessels of the neck and head as described above. However there appears to be hyperemia involving the small vessels of the right hemisphere with question of a prominent draining vein over the convexity and there are questionable areas of decreased attenuation in the high right parietal and frontal regions. Correlation with brain MRI requested to evaluate these findings and assess the possibility of stroke, neoplasm, subdural collection or vascular malformation. On today's visit, vitals within normal limits on arrival. Patient was able to ambulate back to the ED room. He is complaining of his diffuse headache 11/07 but denies any complaints of numbness or weakness at this time. EKG notes a rate of 63 and sinus with T wave inversion in lateral leads but no acute ST findings. We will send for stat CT head and check screening labs and chest x-ray. Will attempt to obtain MRI MRA brain today. [id number] -- d/w radiologist Dr. Chaney --patient has a subacute 19 mm right-sided frontal parietal subdural hematoma with approximately 2 mm midline shift. Will call [facility] neurosurgery for transfer. [id number] -- d/w [facility] neurosurgery Dr. Maya - accepts patient for transfer to the ER. Accepting physician in the ER Dr. Mclean. Dr. Maya is requesting 2 g of IV Keppra given. Patient has not yet taken any of his medications this morning. Patient is cleared to take his tacrolimus this morning. Patient is hemodynamically stable, resting comfortably. Medical Records Medical records reviewed: Yes I reviewed the patient's medical records. Imaging Data Radiologic Study: Radiologist's impression: PA AND LATERAL CHEST: There is an apparent coronary artery stent. Heart size is within normal limits. Lungs are grossly clear with minimal left sided scarring. No pleural effusion is seen. CONCLUSION: No evidence of acute disease. Radiologic Study #2: Radiologist's impression: NONCONTRAST HEAD CT: A noncontrast cranial CT was performed. The examination is compared with previous examination of 09/[address] angiogram. On today's examination, the area of questioned hypoattenuation seen in the right parietal region on the CTA is seen to represent a subdural hematoma with mixed low and high attenuation regions consistent with subacute etiology. There is mild effacement of the cerebral sulci on the right and there is decreased size of right lateral ventricle compared to left. There may be midline shift by about 2 mm. to the left. CONCLUSION: Right subdural hematoma as described above, this appears to be subacute. Lab Data Lab results reviewed: Yes I reviewed the patient's lab results. Laboratory Tests Range/Units 09/03/18 09/03/18 09/03/18 08:25 08:25 08:25 WBC (4.4-10.8) k/cumm 7.15 RBC (4.50-6.00) m/cumm 3.79 L Hgb (13.5-17.5) g/dL 11.9 L Hct (40.0-50.0) % 36.4 L MCV (80-95) fL 96.0 H MCH (27.0-33.0) pg 31.4 MCHC (32.0-36.0) g/dL 32.7 RDW (11.8-14.1) % 14.1 Plt Count (130-400) x1000/uL 123 L MPV (8.0-11.0) fL 10.3 Immature Gran % 0.7 Neutrophils % 63.0 Lymphocytes % 27.1 Monocytes % 8.5 Eosinophils % 0.6 Basophils % 0.1 Absolute Neutrophils (1.2-6.7) k/cumm 4.50 Absolute Lymphocytes (1.2-3.4) k/cumm 1.94 Absolute Monocytes (0.11-0.7) k/cumm 0.61 Absolute Eosinophils (0.0-0.7) k/cumm 0.04 Absolute Basophils (0.0-0.2) k/cumm 0.01 PT (9.3-11.0) sec 10.2 INR (0.9-1.1) 1.0 APTT (21.0-31.4) sec 21.5 Sodium (136-145) mmol/L 136 Potassium (3.5-5.1) mmol/L 4.2 Chloride (98-107) mmol/L 103 Carbon Dioxide (21.0-32.0) mmol/L 25.3 Anion Gap (3-11) mmol/L 7.7 BUN (7-18) mg/dL 27 H Creatinine (0.70-1.30) mg/dL 1.72 H Estimated GFR/1.73 m2 (mL/min/1.73m2) 40.36 Glucose (70-100) mg/dL 112 H Calcium (8.5-10.1) mg/dL 9.2 Magnesium (1.8-2.4) mg/dL 1.6 L Total Bilirubin (0.2-1.0) mg/dL 0.3 AST (15-37) U/L 22 ALT (12-78) U/L 28 Alkaline Phosphatase (46-116) U/L 85 Troponin I (0.00-0.06) ng/mL < 0.02 Total Protein (6.4-8.2) g/dL 6.9 Albumin (3.4-5.0) g/dL 3.2 L ECG Data Attestation: I personally reviewed and interpreted this ECG (s) as follows: Interpretation: rate of 63, sinus, t wave inversion V5-V6. QTc 397. QRS 108. HPI General Mode of arrival: ambulatory . Date/Time Provider Initiated Documentation: 09/03/18 08:22 . Limitations to Documentation: no limitations . Information obtained by: patient . HPI Narrative: Patient is a 62-year-old male with a history of obesity, CAD, hypertension, hyperlipidemia, gout, depression, IgA nephropathy with kidney transplant, CABG and coronary stents who presents with left-sided facial and left arm numbness and weakness and entire tongue numbness that lasted approximately 15 minutes starting 30 minutes ago at home and then resolved. Patient states he got out of bed and felt fine and then walked to a family member in the house who noted that patient appeared to have slurred speech and left-sided facial droop. Patient states he attempted to lift something with his left hand and felt that his left hand was weak and numb. He states his symptoms are completely resolved at present. Patient also admits to diffuse headache for the past 4 days. States the headache is throbbing and currently 7/10. He denies any blurry vision, dizziness, leg weakness or numbness, chest pain, shortness of breath. Patient was seen here 2 days ago for dysuria and headache and was discharged home. Patient states his dysuria is now resolved. Patient denies a history of CVA. He had a kidney transplant 3 years ago due to IgA nephropathy. Related Data Home Medications Medication Instructions Recorded Confirmed aspirin [Aspir-81] 81 mg PO DAILY 08/18/12 09/03/18 citalopram 40 mg PO DAILY 08/18/12 09/03/18 calcitriol 0.25 mcg PO DAILY 02/25/13 09/03/18 levothyroxine 75 mcg PO DAILY 02/25/13 09/03/18 atorvastatin [Lipitor] 40 mg PO DAILY 05/26/14 09/03/18 levetiracetam [Keppra] 500 mg PO BID 02/19/16 09/03/18 clopidogrel [Plavix] 75 mg PO DAILY tab-cap 05/11/16 09/03/18 citalopram 20 mg PO DAILY 09/03/18 09/03/18 mycophenolate sodium [Myfortic] 360 mg PO BID 09/03/18 09/03/18 tacrolimus [Astagraf XL] 4 mg PO QAM 09/03/18 09/03/18 Allergies Allergy/AdvReac Type Severity Reaction Status Date / Time sodium bicarbonate Allergy Severe seizures Unverified 09/03/18 08:31 lisinopril Allergy Intermediate Hives Unverified 09/03/18 08:31 gabapentin AdvReac Intermediate related to Unverified 09/03/18 08:31 dialysis furosemide [From Lasix] AdvReac Nausea Unverified 09/03/18 08:31 General Stated Complaint: CVA/TIA MILAGROS: 2 Review of Systems Review of Systems All systems reviewed & are unremarkable except as noted in HPI and below Constitutional Reports as per HPI, Denies chills, Denies fever(s) and Reports headache(s) Eyes Denies blurry vision ENT Denies dizziness, Reports headache(s), Denies sore throat and Denies throat s welling Cardiovascular Denies chest pain and Denies dyspnea Respiratory Denies cough and Denies dyspnea Gastrointestinal Denies abdominal pain, Denies diarrhea and Denies vomiting Genitourinary Denies hematuria and Denies dysuria Musculoskeletal Denies back pain and Reports numbness Integumentary/Breasts Denies lesions and Denies rash Neurologic Denies dizziness, Reports headache(s), Reports focal weakness and Reports numbness Allergic/Immunologic Denies throat swelling [facility] Medical History Hx of hyperlipidemia (Acute) IgA nephropathy (Acute) Coronary artery disease (Chronic) Depression (Chronic) Gout (Chronic) HTN (hypertension) (Chronic) Obstructive sleep apnea (Chronic) Renal failure (Chronic) Seizure disorder (Chronic) Surgical History History of eye surgery (Acute) Kidney transplant recipient (Acute) History of coronary artery stent placement (Chronic) Hx of CABG (Chronic) Colonoscopy - MAC (12/03/15) Social History Smoking/Tobacco Use Status: Never Alcohol Intake: never Drug use: Never Do you feel safe at home: Yes Do you feel safe in your relationship?: Yes Exam Const General: cooperative and no acute distress HENMT Head: normal to inspection Face and sinus: normal facial exam Eyes General: appearance normal, both eyes and all related structures EOM: EOM intact bilaterally Neck Neck: normal visual inspection and No submandibular swelling Lymphatic: no lymphadenopathy noted Chest Chest: normal inspection of the chest and no tenderness Resp Effort & Inspection: normal respiratory effort and able to speak in complete sentences Auscultation: clear to auscultation bilaterally Cardio Rate: regular rate Rhythm: regular rhythm GI Inspection: normal to inspection and obesity Palpation: soft, not firm, not rigid and nontender Auscultation: normal bowel sounds Skin General skin exam: no rashes or lesions noted Neuro General: alert, awake, oriented x3, moves all extremities and no focal motor deficits Cranial Nerves: CN's II-XI intact bilaterally Cognition: normal cognition Speech: speech normal Motor: muscle tone normal throughout and strength 5/5 throughout Sensory Exam: no sensory deficits noted Extrem General: normal to inspection, full ROM and no edema Psych Appearance: grossly normal Mental Status: mental status grossly normal Speech and Movement: speech and movement normal Affect: normal affect Course Vital Signs Temperature 97.7 F 09/03/18 08:14 Pulse 63 09/03/18 08:14 Respiratory Rate 16 09/03/18 08:14 Blood Pressure 138/56 L 09/03/18 08:14 Pulse Oximetry 97 09/03/18 08:14 Temperature 97.7 F 09/03/18 08:14 Temperature Source Temporal Artery Scan 09/03/18 08:14 Pulse 63 05/06/19 08:14 Respiratory Rate 16 09/03/18 08:14 Blood Pressure 138/56 L 09/03/18 08:14 Blood Pressure Position Sitting 09/03/18 08:14 Pulse Oximetry 97 09/03/18 08:14 Oxygen Delivery Method Room Air 09/03/18 08:14 Oxygen Flow Rate 0 09/03/18 08:14 Pain Level 7 09/03/18 08:14
[2018-09-03 08:35] LABS: Abs Immature Grans 0.05 k/cumm (0.0-0.09); Absolute Basophil Count 0.01 k/cumm (0.0-0.2); Absolute Eosinophil Count 0.04 k/cumm (0.0-0.7); Absolute Lymphocyte Count 1.94 k/cumm (1.2-3.4); Absolute Monocyte Count 0.61 k/cumm (0.11-0.7); Basophils % 0.1; Eosinophils % 0.6; HCT 36.4 % (40.0-50.0); HGB 11.9 g/dL (13.5-17.5); Immature Grans % 0.7; Lymphocytes % 27.1; Mean Corp. HGB Concentration 32.7 g/dL (32.0-36.0); Mean Corpuscular Hemoglobin 31.4 pg (27.0-33.0); Mean Platelet Volume 10.3 fL (8.0-11.0); Monocytes % 8.5; Platelet Count 123 x1000/uL (130-400); RBC 3.79 m/cumm (4.50-6.00); RBC Distribution Width 14.1 % (11.8-14.1); White Blood Cell Count 7.15 k/cumm (4.4-10.8)
[2018-09-03 08:50] LABS: ALT 28 U/L (12-78); AST 22 U/L (15-37); Albumin 3.2 g/dL (3.4-5.0); Alkaline Phosphatase 85 U/L (46-116); Anion Gap 7.7 mmol/L (3-11); BUN 27 mg/dL (7-18); Bilirubin, Total 0.3 mg/dL (0.2-1.0); CO2 25.3 mmol/L (21.0-32.0); CREATININE 1.72 mg/dL (0.70-1.30); Calcium 9.2 mg/dL (8.5-10.1); Chloride 103 mmol/L (98-107); Estimated GFR 40.36 (mL/min/1.73m2); Glucose 112 mg/dL (70-100); Magnesium 1.6 mg/dL (1.8-2.4); Potassium 4.2 mmol/L (3.5-5.1); Sodium 136 mmol/L (136-145); Total Protein 6.9 g/dL (6.4-8.2); Troponin I < 0.02 ng/mL (0.00-0.06)
[2018-09-03 09:12] LABS: PTT Activated 21.5 sec (21.0-31.4); Prothrombin Time 10.2 sec (9.3-11.0)
[2018-09-03] MEDS: levETIRAcetam 2,000 MG in Normal Saline 100 ML 400 MG IVPB (10:32)
== END 2018-09-03 10:41 | disposition short-term general hospital (02) ==
PROVIDERS: Emergency Provider Physician Assistant; PCP Internal Medicine
DX: I62.02 Nontraumatic subacute subdural hemorrhage (principal); R20.2 Paresthesia of skin; I12.9 Hypertensive chronic kidney disease with stage 1 through stage 4 chronic kidney disease, or unspecified chronic kidney disease; I25.10 Atherosclerotic heart disease of native coronary artery without angina pectoris; N18.9 Chronic kidney disease, unspecified; Z95.5 Presence of coronary angioplasty implant and graft; Z95.1 Presence of aortocoronary bypass graft
CPT/HCPCS: 36415; 80053; 93005; 96365; 99285; 70450; 71046; 83735; 84484; 85025; 85610; 85730; 93010; J1953

== ENCOUNTER 2019-01-15 07:35 | Outpatient (CLI) | payer MEDICARE, OTHER, SELFPAY | END 2019-01-15 07:55 | PROVIDERS: PCP Internal Medicine; Visit Provider Internal Medicine | DX: R05 Cough (principal); Z95.1 Presence of aortocoronary bypass graft | CPT/HCPCS: 71046; 87070; 87205 ==

== ENCOUNTER 2019-01-15 07:55 | Outpatient (CLI) | payer MEDICARE, OTHER, SELFPAY ==
--- NOTE | 2019-01-15 10:00 | DI.RAD_ITS ---
INDICATION: Cough, R05 COMPARISON: XR CHEST 2V PA LATERAL from 09/03/2018 TECHNIQUE: 2D digital imaging was performed. FINDINGS: Regions of scarring involving the left lung base are demonstrated. The lungs are otherwise clear. The re is no pleural effusion. The heart is not enlarged. Patient is status post CABG. IMPRESSION: There has been no significant interval change when compared with prior images. There is no evidence o f acute cardiopulmonary disease.
== END 2019-01-15 08:15 ==
PROVIDERS: PCP Internal Medicine; Visit Provider Nurse Practitioner Family
DX: R05 Cough (principal); Z95.1 Presence of aortocoronary bypass graft
CPT/HCPCS: 71046

== ENCOUNTER 2021-01-14 03:21 | Outpatient (RCR) | payer MEDICARE, OTHER, SELFPAY ==
--- NOTE | 2021-01-14 09:00 | HOLTER_ITS ---
APPROVED REPORT Conclusion This is a 48-hour Holter monitor ordered for chest pain Rhythm throughout was sinus. Average heart rate was 61. Minimum was 53, maximum 88 There were rare atrial and ventricular ectopic beats There was no atrial fibrillation. There was no high-grade AV block. There were no pauses greater th an 3 seconds Patient symptoms of weakness corresponded to sinus rhythm rate 78
== END 2021-01-28 23:59 | disposition home or self-care (01) ==
LOC: RT 03:21
PROVIDERS: PCP Internal Medicine; Visit Provider Internal Medicine
DX: R55 Syncope and collapse (principal); R07.9 Chest pain, unspecified; R00.2 Palpitations
CPT/HCPCS: 93227; 93225; 93226

== ENCOUNTER 2021-01-21 00:19 | Outpatient (CLI) | payer MEDICARE, OTHER, SELFPAY ==
--- NOTE | 2021-01-21 | DI.NM_ITS ---
APPROVED REPORT Exam: Pharmacologic Patient Location: Out-Patient Room/Bed: Stress Nurse: Kelly Colon RN Ordering Provider:MAGGIE DESAI, Contact Number: [phone] BMI: 44.92 Baseline Rhythm: Sinus Rhythm w/ LBBB Indications: Chest pain, near syncope, intermittent palpitations, fatigue Medical History Medical History: Hypertension, hyperlipidemia, JOSE, CAD, depression, renal failiure, kidney transplan t Cardiac Medications: Levothyroxine, plavix, prednisone, carvedilol, calcitril, atorvastatin, aspirin Allergies: sodium bicarbonate, lisinopril, gabapentin, furosemide Cardiac Risk Factors: Hypertension, hyperlipidemia, asthma, family hx, CVD Previous Cardiac Procedures: CABG (2000), stent (2012), cath (2015, 2016) Pretest Chest Pain Characteristics: None Exercise History: Sedentary Physical Disabilities: None Lung Sounds: Clear to auscultation Heart Sounds: Regular Stress Test Details Test: Pharmacologic stress was paired with low level exercise. Reason for pharmacologic stress test: LBBB. Nuclear Acquisition: Rest Tc-99m/Stress Tc-99m 1 day Rest Isotope: Tc-99m Sestamibi. Dose: 14.5 Date: 01/21/2021 Injection Time: 0930 Stress Isotope: Tc-99m Sestamibi. Dose: 46.2 Date: 01/21/2021 Injection Time: 1116 HR Resting HR Supine: 60 bpm Max Heart Rate (APMHR): 154.437310 bpm Resting HR Standin bpm Target HR (85% APMHR): 130.963910 bpm Max HR Achieved: 93 bpm % of APMHR: 60.39 Recovery HR: 73 bpm HR response to stress: Normal HR response to stress Comment: Carvedilol held for 24 hrs BP Resting BP Supine: 110/72 mmHg Resting BP Standin/64 mmHg Max BP: 132/60 mmHg Recovery BP: 120/68 mmHg BP response to stress: Normal blood pressure response to stress. ECG Resting ECG: Sinus Rhythm w/ LBBB Ectopy: None Comment: Flipped T waves lead II, III, aVF, V1, and V6 Stress ECG: Sinus Rhythm w/ LBBB ST Change: Nondiagnostic LBBB Arrhythmia: None Recovery ECG: Sinus Rhythm w/ LBBB Recovery ST Change: Nondiagnostic LBBB Recovery Arrhythmia: None Comment: Flipped T waves lead II, V1, and V6 Clinical Stress Symptoms: Dyspnea, General Fatigue Exercise duration: 4 min00 sec Exercise capacity: 2.15 METs Rate Pressure Product: 57350 Stress ECG Conclusion 1. The resting electrocardiogram showed a left bundle branch block 2. The patient underwent cardiac stress using low-level exercise and regadenoson 3. Peak heart rate achieved was 60% of predicted for age 4. Electrocardiographically the test was nondiagnostic due to LBBB 5. There were no significant dysrhythmias Stress Test Summary STAGE HR BP Symptoms NOTES Supine 60 110/72 SpO2 98% 1 min post Lexiscan injection 92 Moderate SOB SpO2 96% 3 min post Lexiscan injection 78 132/60 Symptom resolving SpO2 98% 6 min post Lexiscan injection 73 120/68 SOB resolved SpO2 98% Pt ambulated on treadmill for walking Lexiscan test at 1.5mph and 0% grade. MPI Conclusion Equivocal small area of fixed decreased perfusion at the apex No ischemia EF 48% Radiologist Interpretation Radiologist Interpretation by: Haider Self MD Interpretation Date/Time: 01/22/2021 18:53:29
[2021-01-21] MEDS: Regadenoson 0.4 MG/5 ML SYR IVP (14:00)
== END 2021-01-21 00:39 ==
PROVIDERS: PCP Internal Medicine; Visit Provider Internal Medicine
DX: R07.9 Chest pain, unspecified (principal); R55 Syncope and collapse; R00.2 Palpitations; R53.83 Other fatigue; Z82.49 Family history of ischemic heart disease and other diseases of the circulatory system; I25.10 Atherosclerotic heart disease of native coronary artery without angina pectoris; I44.7 Left bundle-branch block, unspecified; R94.39 Abnormal result of other cardiovascular function study
CPT/HCPCS: 78452; 93016; 93018; 93017; J2785

== ENCOUNTER 2021-05-18 14:54 | Outpatient (REF) | payer MEDICARE, OTHER, SELFPAY ==
[2021-05-19 01:45] LABS: COVID-19 RT-PCR UVMMC Result Negative (Negative)
== END 2021-05-18 14:55 | disposition home or self-care (01) ==
LOC: NCHCN 14:54
PROVIDERS: PCP Internal Medicine; Visit Provider Internal Medicine
DX: Z20.822 Contact with and (suspected) exposure to COVID-19 (principal)
CPT/HCPCS: U0003; U0005

== ENCOUNTER 2021-10-07 11:41 | Outpatient (REF) | payer MEDICARE, OTHER, SELFPAY ==
[2021-10-07 15:37] LABS: Abs Immature Grans 0.05 10^3/uL (0.0-0.06); Absolute Eosinophil Count 0.04 10^3/uL (0.0-0.7); Absolute Lymphocyte Count 1.61 10^3/uL (1.2-3.4); Absolute Monocyte Count 0.24 10^3/uL (0.1-0.8); Absolute Neutrophil Count 2.14 10^3/uL (1.2-6.7); HCT 41.4 % (40.0-50.0); HGB 13.3 g/dL (13.5-17.5); Immature Grans % 1.2; Lymphocytes % 39.5; MCH 30.6 pg (27.0-33.0); MCHC 32.1 % (32.0-36.0); MCV 95 fL (80-95); MPV 10.6 fL (8.0-11.0); Monocytes % 5.9; Neutrophils % 52.4; Platelet Count 108 10^3/uL (130-400); RBC 4.35 10^6/uL (4.36-5.78); RDW 13.6 % (11.8-14.1); RDW-SD 47.8 fL; WBC 4.08 10^3/uL (4.4-10.8)
[2021-10-07 16:11] LABS: Hemoglobin A1C 6.1 % (<5.7)
[2021-10-07 16:20] LABS: ALT 66 U/L (16-63); AST 51 U/L (15-37); Albumin 3.8 g/dL (3.4-5.0); Alkaline Phosphatase 127 U/L (46-116); Anion Gap 12.8 mmol/L (3-11); BUN 35 mg/dL (7-18); Bilirubin, Total 0.5 mg/dL (0.2-1.0); C-Reactive Protein 2.88 mg/dL (0.0-0.3); CO2 21.2 mmol/L (21.0-32.0); CREATININE 1.9 mg/dL (0.70-1.30); Calcium 9.6 mg/dL (8.5-10.1); Chloride 106 mmol/L (98-107); Estimated GFR 35.64 (mL/min/1.73m2); Glucose 90 mg/dL (74-106); Potassium 4.9 mmol/L (3.5-5.1); Sodium 140 mmol/L (136-145); Uric Acid 10.8 mg/dL (3.5-7.2)
[2021-10-07 16:34] LABS: C Diff PCR Negative (Negative)
[2021-10-08 11:14] LABS: Campylobacter PCR Negative (Negative); Salmonella PCR Negative (Negative); Shiga Toxin PCR Negative (Negative); Shigella/Enteroinvasive Ecoli Negative (Negative)
== END 2021-10-07 11:42 | disposition home or self-care (01) ==
LOC: NCHCN 11:41
PROVIDERS: PCP Internal Medicine; Visit Provider Internal Medicine
DX: R19.7 Diarrhea, unspecified (principal); R11.2 Nausea with vomiting, unspecified; R73.03 Prediabetes; M54.2 Cervicalgia; E79.0 Hyperuricemia without signs of inflammatory arthritis and tophaceous disease
CPT/HCPCS: 80053; 87329; 87493; 87505; 82272; 83036; 83630; 84550; 85025; 86140

== ENCOUNTER → 2021-10-08 00:51 | Outpatient (CLI) | payer MEDICARE, OTHER, SELFPAY ==
--- NOTE | 2021-10-08 09:23 | DI.RAD_ITS ---
Exam(s) XR CERVICAL SPINE COMP 4-5V EXAM: XR CERVICAL SPINE COMP 4-5V CLINICAL HISTORY: RT NECK PAIN,M54.2,H/O OSTEOMYELITIS OFCERVICAL SPINE. TECHNIQUE: 2D digital imaging was performed. Seven images were obtained. AP, odontoid, lateral and b ilateral oblique images were obtained. COMPARISON: CT CT BRAIN NECK CTA from 09/01/2018 FINDINGS: The odontoid is intact. The lateral masses are well aligned. There is straightening of the normal ce rvical lordosis. There is moderate disc space narrowing at C5-C6. Endplate osteophytes are seen at C5-C6 and C6-C7. No acute fracture or subluxation is present. There is mild neural foraminal narrowin g on the right at C5-C6. The cervical thoracic junction is well maintained. The prevertebral soft ti ssues are unremarkable. The lung apices are clear. Sternal wires are in place. IMPRESSION: [id number] cervical spondylosis. DATA REPOSITORY: RADIATION DOSE DELIVERED:
== END ==
PROVIDERS: PCP Internal Medicine; Visit Provider Internal Medicine
DX: M47.812 Spondylosis without myelopathy or radiculopathy, cervical region; M50.322 Other cervical disc degeneration at C5-C6 level
CPT/HCPCS: 72050

== ENCOUNTER 2021-10-08 13:11 | Inpatient (IN) | payer MEDICARE, OTHER, SELFPAY ==
[2021-10-08] VITALS (380 sets, daily range): BP systolic 102–177; BP diastolic 40–113; PULSE 44–69; RESP 10–28; TEMP 36.2; O2SAT 90–100
[2021-10-08] MEDS: Lactated Ringers 1,000 ML 1000 ML IV (15:18)
[2021-10-08 15:23] LABS: Lactate 0.8 mmol/L (0.6-1.4)
[2021-10-08 15:29] LABS: Abs Immature Grans 0.03 10^3/uL (0.0-0.06); Absolute Eosinophil Count 0.02 10^3/uL (0.0-0.7); Absolute Monocyte Count 0.19 10^3/uL (0.1-0.8); Absolute Neutrophil Count 2.13 10^3/uL (1.2-6.7); Eosinophils % 0.6; HGB 11.9 g/dL (13.5-17.5); Immature Grans % 0.9; Lymphocytes % 27.5; MCH 30.8 pg (27.0-33.0); MCHC 33.1 % (32.0-36.0); MCV 93 fL (80-95); MPV 11.1 fL (8.0-11.0); Monocytes % 5.8; Neutrophils % 65.2; RBC 3.86 10^6/uL (4.36-5.78); RDW 13.6 % (11.8-14.1); RDW-SD 46.3 fL; WBC 3.27 10^3/uL (4.4-10.8)
--- NOTE | 2021-10-08 15:42 | ED.GENADUL_ITS ---
Discharge Plan Disposition Patient Disposition: [facility] INPATIENT Condition: Improving Discharge Details Chief Complaint: GenMedical Clinical Impression: Acute dehydration, SARS-CoV-2 positive, Acute kidney injury (nontraumatic), Acute diarrhea, Hypomagnesemia Admit Date/Time: 10/10/21 00:00 Admit Provider: Roni Retana Attending Provider: Roni Retana Primary Care Provider: Shahzad Domingo ED Provider: Tip Dean Discharge Instructions Activity:: Activity as Tolerated Equipment/Supplies:: No Equipment Needed Diet:: Resume usual diet Discharge Data Discharge Date/Time-TO BE ENTERED AT DEPARTURE: 10/09/21 19:26 Medical Decision Making Patient presenting the emergency department for chief complaint of diarrhea with some nausea vomiting. Patient reports that approximately 10 days ago he had COVID which respiratory symptoms are improving but around that same time he developed some GI symptoms. He does state that he has striae of renal transplant and is on immunosuppressants. Patient denies any fever chills but does state significant malaise. Physical exam is unremarkable and shows no tachycardia, low blood pressure, soft nontender abdomen with normal active bowel sounds. We will plan on checking labs and giving IV fluids pending results. HPI General Mode of arrival: ambulatory . Date/Time Provider Initiated Documentation: 10/08/21 13:43 . Limitations to Documentation: no limitations . Information obtained by: patient and RN notes reviewed . History of Present Illness 66 year old M presents to the emergency department with the chief complaint of Diarrhea nausea vomiting, described as moderate, Quality is described as other (Denies pain), Patient started experiencing this week(s) (10) and it has been constant. No relieving factors improve symptom(s), No exacerbating factors reported . Patient notes loss of appetite and malaise. Patient did receive the following treatments prior to arrival, none Related Data Home Medications Medication Instructions Recorded Confirmed citalopram 40 mg tablet 40 mg PO DAILY 08/18/12 10/21/21 calcitriol 0.25 mcg capsule 0.25 mcg PO DAILY 02/25/13 10/08/21 atorvastatin 40 mg tablet (Lipitor) 40 mg PO HS 05/26/14 10/21/21 clopidogrel 75 mg tablet (Plavix) 75 mg PO DAILY 05/11/16 10/21/21 tacrolimus 1 mg capsule,extended 4 mg PO QAM 09/03/18 10/21/21 release 24 hr (Astagraf XL) carvedilol 3.125 mg tablet 3.125 mg PO BID 10/08/21 10/21/21 levothyroxine 75 mcg tablet 75 mcg DAILY 10/08/21 10/21/21 prednisone 5 mg tablet 5 mg PO DAILY 10/08/21 10/21/21 levetiracetam 500 mg tablet 1,000 mg PO BID #0 tabs 10/11/21 10/21/21 mycophenolate sodium 180 mg 180 mg PO BID #0 tabs 10/11/21 10/21/21 tablet,delayed release prochlorperazine maleate 10 mg 1 tab PO TID PRN 10/21/21 10/21/21 tablet Previous Rx's Medication Instructions Recorded levetiracetam 500 mg tablet 1,000 mg PO BID #0 tabs 10/11/21 mycophenolate sodium 180 mg 180 mg PO BID #0 tabs 10/11/21 tablet,delayed release Allergies Allergy/AdvReac Type Severity Reaction Status Date / Time levofloxacin Allergy Severe Unverified 10/21/21 12:23 sevelamer [From Renvela] Allergy Severe per pcp Unverified 10/21/21 12:29 list sodium bicarbonate Allergy Severe seizures Unverified 10/21/21 12:23 lisinopril Allergy Intermediate Hives Unverified 10/21/21 12:23 amoxicillin [From Augmentin] Allergy Unverified 10/21/21 12:23 clavulanic acid Allergy Unverified 10/21/21 12:23 [From Augmentin] gabapentin AdvReac Intermediate related to Unverified 10/21/21 12:23 dialysis furosemide [From Lasix] AdvReac Nausea Unverified 10/21/21 12:23 General Stated Complaint: GenMedical MILAGROS: 2 Review of Systems Constitutional Constitutional: Denies chills, Denies fever(s) and Reports poor appetite Cardiovascular Cardiovascular: Denies chest pain and Denies dyspnea Respiratory Respiratory: Reports cough and Denies dyspnea Gastrointestinal Gastrointestinal: Reports as per HPI, Reports abdominal pain, Denies melena, Denies hematochezia, Denies change in bowel habits, Denies constipation, Denies fecal incontinence, Reports diarrhea, Reports nausea, Reports vomiting and Denies hematemesis Genitourinary Genitourinary: Denies hematuria, Denies difficulty urinating, Denies urinary hesitancy, Denies urinary incontinence and Denies urinary urgency Integumentary/Breasts Skin/Breast: Denies rash PFSH All Active Problems Pancytopenia (Acute) Colonoscopy - MAC (Acute 12/03/15) Medical History Complete tear of left rotator cuff (06/24/16) Coronary artery disease Depression Gout HTN (hypertension) Hx of hyperlipidemia IgA nephropathy Obstructive sleep apnea Renal failure Seizure disorder Tubular adenoma of colon (12/23/15) Surgical History History of coronary artery stent placement History of eye surgery Hx of CABG Kidney transplant recipient Social History Smoking/Tobacco Use Status: Never Smoking risk assessment performed?: Yes Alcohol Intake: never Drug use: Never Do you feel safe at home: Yes Do you feel safe in your relationship?: Yes Exam Const General: cooperative Orientation: alert, awake and oriented x3 Resp Effort & Inspection: normal respiratory effort and able to speak in complete sentences Auscultation: clear to auscultation bilaterally Cardio Rate: regular rate Rhythm: regular rhythm Heart Sounds: S1 normal and S2 normal GI Palpation: soft, not firm, no guarding, no masses, no pulsatile masses, not rigid and nontender Auscultation: normal bowel sounds Back/Spine/Pelvis Back: no CVA tenderness Neuro General: patient alert, patient awake, patient oriented x3, gait normal and moves all extremities Course Vital Signs Vital signs: Vital Signs Temperature 36.2 C L 10/08/21 13:18 Pulse 62 10/08/21 13:18 Respiratory Rate 18 10/08/21 13:18 Blood Pressure 102/42 L 10/08/21 13:18 Pulse Oximetry 95 10/08/21 13:18 Temperature 36.2 C L 10/08/21 13:18 Pulse 62 10/08/21 13:18 Respiratory Rate 26 H 10/08/21 14:08 Respiratory Effort 10/08/21 14:08 Respiratory Depth Normal 10/08/21 14:08 Respiratory Pattern Normal 10/08/21 14:08 Blood Pressure 102/42 L 10/08/21 13:18 Pulse Oximetry 95 10/08/21 13:18 Oxygen Delivery Method Room Air 10/08/21 13:18 Oxygen Flow Rate 0 10/08/21 13:18 Pain Level 0 10/08/21 13:18 Sign Out Sign Out Data: Sign Out Comment: Patient pending review of labs and reassessment after hydration for concern of dehydration secondary to COVID with GI symptoms. Last updated by Davide Yan, CHERI at 10/08/21 16:17 Sign Out Comment: Patient is a renal transplant recipient approximately 4 years ago at [facility]. COVID-positive approximately 2-3 weeks ago. Now with dehydration, diarrhea, hypotension. Responded well to IV fluid. Leukopenia, thrombocytopenia, SOLOMON, spoke with the transplant team at [facility] who recommended transfer to the ER; however, ER at capacity and not excepting transfer. Then spoke with Dr. Mcintyre, nephrology, who will be able to accept the patient to the transplant floor into the care of Dr. Maldonado, but they are at capacity and likely will not happen until tomorrow. We are at capacity as well and will hold the patient in the ER. Last updated by Chadwick Corley PA at 10/08/21 22:57 Sign Out Comment: Renal transplant patient pending transfer to [facility]. Repeat chemistries pending. Last updated by Thomas Gomez MD at 10/09/21 07:27
[2021-10-08 15:44] LABS: Diff Comment PLT Morph Reviewed; Platelet Count 67 10^3/uL (130-400); RBC Morphology Normal
[2021-10-08 17:42] LABS: ALT 40 U/L (16-63); AST 36 U/L (15-37); Albumin 2.1 g/dL (3.4-5.0); Alkaline Phosphatase 71 U/L (46-116); Anion Gap 13.5 mmol/L (3-11); BUN 37 mg/dL (7-18); Bilirubin, Total 0.3 mg/dL (0.2-1.0); CO2 14.5 mmol/L (21.0-32.0); CREATININE 1.9 mg/dL (0.70-1.30); Calcium 7.9 mg/dL (8.5-10.1); Chloride 108 mmol/L (98-107); Estimated GFR 35.64 (mL/min/1.73m2); Glucose 76 mg/dL (74-106); Lipase 79 U/L (73-393); Magnesium 1.2 mg/dL (1.8-2.4); Potassium 5.3 mmol/L (3.5-5.1); Sodium 136 mmol/L (136-145); Total Protein 4.3 g/dL (6.4-8.2)
--- NOTE | 2021-10-08 18:10 | NUR.NOTE ---
PIV attempt x2 by RN, US attempt x2 by , and MD art stick completed to obtain labs. Lab reported specimen were hemolyzed. Lab asked to attempt to draw labs, lab reported theyre unable to collect specimen. Additional labs sent over and RN ask lab technologist to run specimen immediately due to urgency and difficult attempts for collection. Lab reports green, purple, yellow tubes were fine, the two red tops hemolyzed. BOG CUTTER updated on lab update and the inability to collect blood cultures.
[2021-10-08] MEDS: Normal Saline 1,000 ML 1000 ML IV (18:42)
[2021-10-08] MEDS: MAGNESIUM SULFATE 1 GM/100 ML BAG IVPB (18:42)
[2021-10-08 21:36] LABS: Source Nasal/Nares
--- NOTE | 2021-10-08 22:07 | W.EDPROG ---
Date of service: 10/08/21 Time of Service: 15:30 Medical Decision Making This is a 65-year-old male with a past medical history of a kidney transplant recipient, CAD with stent placement, seizure disorder, depression, gout, hypertension, on both mycophenolate sodium and Astra graft, who is vaccinated against COVID but did have COVID approximately 10 days ago, mild respiratory symptoms but did not have any remdesivir infusion or Paxlovid, now presents from his PCPs office for ongoing diarrhea, hypotension, dehydration but did have a negative stool cultures and C. difficile. Patient received 1 L IV fluids prior to arrival and received a liter of lactated Ringer's here in the ER. The patient was seen by my colleague MANAGER EMBALMER [employer]ERAL DIRECTOR Farrah, please see his initial HPI and examination. Awaiting laboratory values, IV hydration, and reassessment. Unfortunately his access was extremely difficult, labs hemolyzed multiple times which delayed his care. ER attending, Dr. Hanks attempted multiple ultrasound IV attempts and eventually to arterial sticks to obtain laboratory values. Laboratory values reveal a white blood cell count of 3.27 which is lower than yesterday as well as a platelet count of 67, patient appears to have chronic, cytopenia but this is worse than his baseline. He denies any black tarry stools or bright red blood in his stools. Potassium was 5.3 anion gap 13.5 creatinine 1.9 with a GFR of 35.64 calcium 7.9 magnesium 1.2. Patient was given a 3rd L of IV fluid and a gram of IV magnesium. I received a call from Dr. Domingo at 1708 who saw the patient earlier today. We discussed his interesting presentation while this very well may all be secondary to his recent COVID infection given his high risk he recommends adding on blood cultures, I will also add on a tickborne panel, and he questions if speaking with the transplant team would be worthwhile. Transplant team at [facility]. I spoke with Chris from the transplant team at 1825, he reviewed labs, typical creatinine is 1.5 so this would count of SOLOMON, he will contact me once he speaks with the rest of the transplant team for further recommendations. I received a call back at approximately 1920 from Chris from the transplant team. He is recommending that the patient be transferred to their ER for a more thorough evaluation as we are a critical access hospital and cannot likely meet his needs. I then spoke with Laura on the transfer line, unfortunately the ER is at capacity and they are not taking any transfers. I discussed this with the patient and his , they are not interested in transfer to any other facility other than [facility]. I then received a call from Dr. Mcintyre at 1953, nephrology from [facility]. She states that she would like me to add on a fibrinogen, haptoglobin and LDH. The patient has had 3 L normal saline combined and she recommends no more IV fluid unless patient becomes hypotensive again. She does believe given his immunocompromised state, leukopenia, thrombocytopenia, SOLOMON, overall presentation, that transfer to her facility is warranted. She plans to have the patient excepted to the transplant unit floor into the care of Dr. Maldonado, but unfortunately they cannot accept care of the patient this evening. We are at capacity for admission at our facility will hold the patient in the ER overnight. She or her team will contact our hospital tomorrow to discuss her bed capacity and check in on the patient. Covid + This documentation was generated using [employer] dictation system, please disregard any oddities of phrase or misspellings. Medical Records Medical records reviewed: Yes I reviewed the patient's medical records. Lab Data Lab results reviewed: Yes I reviewed the patient's lab results. Labs: 10/08/21 17:10 Blood Blood Culture - Pending 10/08/21 17:10 Blood Blood Culture - Pending Laboratory Tests Range/Units 10/08/21 10/08/21 10/08/21 15:07 15:07 15:07 WBC (4.4-10.8) 10^3/uL 3.27 L RBC (4.36-5.78) 10^6/uL 3.86 L Hgb (13.5-17.5) g/dL 11.9 L Hct (40.0-50.0) % 36.0 L MCV (80-95) fL 93 MCH (27.0-33.0) pg 30.8 MCHC (32.0-36.0) % 33.1 D RDW (11.8-14.1) % 13.6 Plt Count (130-400) 10^3/uL 67 L MPV (8.0-11.0) fL 11.1 H Immature Gran % 0.9 Neutrophils % 65.2 Lymphocytes % 27.5 Monocytes % 5.8 Eosinophils % 0.6 Basophils % 0.0 Nucleated RBC % (0.0-0.3) % 0.0 Absolute Neutrophils (1.2-6.7) 10^3/uL 2.13 Absolute Lymphocytes (1.2-3.4) 10^3/uL 0.90 L Absolute Monocytes (0.1-0.8) 10^3/uL 0.19 Absolute Eosinophils (0.0-0.7) 10^3/uL 0.02 Absolute Basophils (0.0-0.2) 10^3/uL 0.00 RBC Morphology Normal VBG Lactate (0.6-1.4) mmol/L 0.8 Sodium Cancelled Potassium Cancelled Chloride Cancelled Carbon Dioxide Cancelled Anion Gap Cancelled BUN Cancelled Creatinine Cancelled Estimated GFR/1.73 m2 Cancelled Glucose Cancelled Calcium Cancelled Magnesium Cancelled Total Bilirubin Cancelled AST Cancelled ALT Cancelled Alkaline Phosphatase Cancelled Total Protein Cancelled Albumin Cancelled Lipase Cancelled COVID-19 Source SARS-CoV-2 (PCR) (Negative) Range/Units 10/08/21 10/08/21 17:19 21:30 WBC (4.4-10.8) 10^3/uL RBC (4.36-5.78) 10^6/uL Hgb (13.5-17.5) g/dL Hct (40.0-50.0) % MCV (80-95) fL MCH (27.0-33.0) pg MCHC (32.0-36.0) % RDW (11.8-14.1) % Plt Count (130-400) 10^3/uL MPV (8.0-11.0) fL Immature Gran % Neutrophils % Lymphocytes % Monocytes % Eosinophils % Basophils % Nucleated RBC % (0.0-0.3) % Absolute Neutrophils (1.2-6.7) 10^3/uL Absolute Lymphocytes (1.2-3.4) 10^3/uL Absolute Monocytes (0.1-0.8) 10^3/uL Absolute Eosinophils (0.0-0.7) 10^3/uL Absolute Basophils (0.0-0.2) 10^3/uL RBC Morphology VBG Lactate (0.6-1.4) mmol/L Sodium 136 Potassium 5.3 H Chloride 108 H Carbon Dioxide 14.5 L Anion Gap 13.5 H BUN 37 H Creatinine 1.9 H Estimated GFR/1.73 m2 35.64 Glucose 76 Calcium 7.9 L Magnesium 1.2 L Total Bilirubin 0.3 AST 36 ALT 40 Alkaline Phosphatase 71 Total Protein 4.3 L Albumin 2.1 L Lipase 79 COVID-19 Source Nasal/Nares SARS-CoV-2 (PCR) (Negative) POSITIVE A* Note: Patient discussed with CHERI Corley. I agree with treatment plan as discussed/documented. Exam Const General: cooperative, healthy appearing, comfortable and no acute distress Orientation: alert, awake and oriented x3 HENMT Head: normal to inspection, normocephalic and atraumatic Eyes General: appearance normal, both eyes and all related structures Conjunctivae: conjunctivae normal Neck Neck: normal visual inspection, trachea midline and supple Resp Effort & Inspection: normal respiratory effort and able to speak in complete sentences Auscultation: clear to auscultation bilaterally Cardio Rate: regular rate Rhythm: regular rhythm GI Palpation: soft and nontender Skin General skin exam: no rashes or lesions noted Neuro General: patient alert, patient awake, moves all extremities and no focal motor deficits Cognition: normal cognition Speech: speech normal Motor: muscle tone normal throughout Sensory Exam: no sensory deficits noted Extrem General: normal to inspection, full ROM, capillary refill normal and no pedal edema Psych Appearance: grossly normal Mental Status: mental status grossly normal Sign Out Sign Out Data: Sign Out Comment: Patient pending review of labs and reassessment after hydration for concern of dehydration secondary to COVID with GI symptoms. Last updated by Davide Yan NP at 10/08/21 16:17 Sign Out Comment: Patient is a renal transplant recipient approximately 4 years ago at [facility]. COVID-positive approximately 2-3 weeks ago. Now with dehydration, diarrhea, hypotension. Responded well to IV fluid. Leukopenia, thrombocytopenia, SOLOMON, spoke with the transplant team at [facility] who recommended transfer to the ER; however, ER at capacity and not excepting transfer. Then spoke with Dr. Mcintyre, nephrology, who will be able to accept the patient to the transplant floor into the care of Dr. Maldonado, but they are at capacity and likely will not happen until tomorrow. We are at capacity as well and will hold the patient in the ER. Last updated by Chadwick Corley PA at 10/08/21 22:57 Sign Out Comment: Renal transplant patient pending transfer to [facility]. Repeat chemistries pending. Last updated by Thomas Gomez MD at 10/09/21 07:27 Discharge Plan Disposition Patient Disposition: [facility] INPATIENT Condition: Improving Discharge Details Clinical Impression: Acute dehydration, SARS-CoV-2 positive, Acute kidney injury (nontraumatic), Acute diarrhea, Hypomagnesemia Admit Date/Time: 10/10/21 00:00 Admit Provider: Roni Retana Attending Provider: Roni Retana Primary Care Provider: Shahzad Domingo ED Provider: Tip Dean Discharge Data Discharge Date/Time-TO BE ENTERED AT DEPARTURE: 10/09/21 19:26
[2021-10-08 22:19] LABS: COVID-19 PCR POSITIVE (Negative)
[2021-10-09] VITALS (201 sets, daily range): BP systolic 104–147; BP diastolic 40–78; PULSE 52–73; RESP 11–27; TEMP 36.4–37.1; O2SAT 90–100
--- NOTE | 2021-10-09 03:30 | ED.PROG_ITS ---
Date of service: 10/09/21 Time of Service: 03:30 Medical Decision Making Care was signed out by ALEXIS Corley, please see his documentation of prior documentation from CHERI Yan regarding initial presentation and course. Plan at signout was to monitor while awaiting transfer to [facility]. Lab Data Lab results reviewed: Yes I reviewed the patient's lab results. Labs: 10/08/21 17:10 Blood Blood Culture - Pending 10/08/21 17:10 Blood Blood Culture - Pending Laboratory Tests Range/Units 10/08/21 10/08/21 10/08/21 15:07 15:07 15:07 WBC (4.4-10.8) 10^3/uL 3.27 L RBC (4.36-5.78) 10^6/uL 3.86 L Hgb (13.5-17.5) g/dL 11.9 L Hct (40.0-50.0) % 36.0 L MCV (80-95) fL 93 MCH (27.0-33.0) pg 30.8 MCHC (32.0-36.0) % 33.1 D RDW (11.8-14.1) % 13.6 Plt Count (130-400) 10^3/uL 67 L MPV (8.0-11.0) fL 11.1 H Immature Gran % 0.9 Neutrophils % 65.2 Lymphocytes % 27.5 Monocytes % 5.8 Eosinophils % 0.6 Basophils % 0.0 Nucleated RBC % (0.0-0.3) % 0.0 Absolute Neutrophils (1.2-6.7) 10^3/uL 2.13 Absolute Lymphocytes (1.2-3.4) 10^3/uL 0.90 L Absolute Monocytes (0.1-0.8) 10^3/uL 0.19 Absolute Eosinophils (0.0-0.7) 10^3/uL 0.02 Absolute Basophils (0.0-0.2) 10^3/uL 0.00 RBC Morphology Normal VBG Lactate (0.6-1.4) mmol/L 0.8 Sodium Cancelled Potassium Cancelled Chloride Cancelled Carbon Dioxide Cancelled Anion Gap Cancelled BUN Cancelled Creatinine Cancelled Estimated GFR/1.73 m2 Cancelled Glucose Cancelled Calcium Cancelled Magnesium Cancelled Total Bilirubin Cancelled AST Cancelled ALT Cancelled Alkaline Phosphatase Cancelled Total Protein Cancelled Albumin Cancelled Lipase Cancelled COVID-19 Source SARS-CoV-2 (PCR) (Negative) Range/Units 10/08/21 10/08/21 17:19 21:30 WBC (4.4-10.8) 10^3/uL RBC (4.36-5.78) 10^6/uL Hgb (13.5-17.5) g/dL Hct (40.0-50.0) % MCV (80-95) fL MCH (27.0-33.0) pg MCHC (32.0-36.0) % RDW (11.8-14.1) % Plt Count (130-400) 10^3/uL MPV (8.0-11.0) fL Immature Gran % Neutrophils % Lymphocytes % Monocytes % Eosinophils % Basophils % Nucleated RBC % (0.0-0.3) % Absolute Neutrophils (1.2-6.7) 10^3/uL Absolute Lymphocytes (1.2-3.4) 10^3/uL Absolute Monocytes (0.1-0.8) 10^3/uL Absolute Eosinophils (0.0-0.7) 10^3/uL Absolute Basophils (0.0-0.2) 10^3/uL RBC Morphology VBG Lactate (0.6-1.4) mmol/L Sodium 136 Potassium 5.3 H Chloride 108 H Carbon Dioxide 14.5 L Anion Gap 13.5 H BUN 37 H Creatinine 1.9 H Estimated GFR/1.73 m2 35.64 Glucose 76 Calcium 7.9 L Magnesium 1.2 L Total Bilirubin 0.3 AST 36 ALT 40 Alkaline Phosphatase 71 Total Protein 4.3 L Albumin 2.1 L Lipase 79 COVID-19 Source Nasal/Nares SARS-CoV-2 (PCR) (Negative) POSITIVE A* Sign Out Sign Out Data: Sign Out Comment: Patient pending review of labs and reassessment after hydration for concern of dehydration secondary to COVID with GI symptoms. Last updated by Davide Yan NP at 10/08/21 16:17 Sign Out Comment: Patient is a renal transplant recipient approximately 4 years ago at [facility]. COVID-positive approximately 2-3 weeks ago. Now with dehydration, diarrhea, hypotension. Responded well to IV fluid. Leukopenia, thrombocytopenia, SOLOMON, spoke with the transplant team at [facility] who recommended transfer to the ER; however, ER at capacity and not excepting transfer. Then spoke with Dr. Mcintyre, nephrology, who will be able to accept the patient to the transplant floor into the care of Dr. Maldonado, but they are at capacity and likely will not happen until tomorrow. We are at capacity as well and will hold the patient in the ER. Last updated by Chadwick Corley PA at 10/08/21 22:57 Sign Out Comment: Renal transplant patient pending transfer to [facility]. Repeat chemistries pending. Last updated by Thomas Gomez MD at 10/09/21 07:27 Discharge Plan Disposition Patient Disposition: [facility] INPATIENT Condition: Improving Discharge Details Clinical Impression: Acute dehydration, SARS-CoV-2 positive, Acute kidney injury (nontraumatic), Acute diarrhea, Hypomagnesemia Admit Date/Time: 10/10/21 00:00 Admit Provider: Roni Retana Attending Provider: Roni Retana Primary Care Provider: Shahzad Domingo ED Provider: Tip Dean Discharge Data Discharge Date/Time-TO BE ENTERED AT DEPARTURE: 10/09/21 19:26
--- NOTE | 2021-10-09 08:12 | NUR.NOTE ---
pt sitting in the chair eating breakfast Nursing Note:
[2021-10-09 08:19] LABS: Abs Immature Grans 0.02 10^3/uL (0.0-0.06); Absolute Basophil Count 0.01 10^3/uL (0.0-0.2); Absolute Eosinophil Count 0.05 10^3/uL (0.0-0.7); Absolute Lymphocyte Count 0.82 10^3/uL (1.2-3.4); Absolute Neutrophil Count 2.27 10^3/uL (1.2-6.7); Basophils % 0.3; Eosinophils % 1.5; HCT 34.8 % (40.0-50.0); HGB 11.2 g/dL (13.5-17.5); Immature Grans % 0.6; Lymphocytes % 24.3; MCH 29.9 pg (27.0-33.0); MCHC 32.2 % (32.0-36.0); MCV 93 fL (80-95); MPV 10.1 fL (8.0-11.0); Monocytes % 5.9; Neutrophils % 67.4; RBC 3.74 10^6/uL (4.36-5.78); RDW 13.3 % (11.8-14.1); RDW-SD 45.5 fL; WBC 3.37 10^3/uL (4.4-10.8)
[2021-10-09 08:30] LABS: BUN 47 mg/dL (7-18); CREATININE 2.3 mg/dL (0.70-1.30); Calcium 8.9 mg/dL (8.5-10.1); Chloride 110 mmol/L (98-107); Estimated GFR 28.59 (mL/min/1.73m2); Glucose 85 mg/dL (74-106); Magnesium 1.9 mg/dL (1.8-2.4); Sodium 139 mmol/L (136-145)
[2021-10-09] MEDS: predniSONE 5 MG TAB PO (08:30)
[2021-10-09 08:31] LABS: LDH 207 U/L (85-227)
[2021-10-09 09:17] LABS: Diff Comment Diff Reviewed; Platelet Count 99 10^3/uL (130-400); RBC Morphology Normal
[2021-10-09] MEDS: Lactated Ringers 1,000 ML 150 ML IV ×2 (09:20→18:08)
[2021-10-09] MEDS: Calcitriol 0.25 MCG CAP PO (09:20)
[2021-10-09] MEDS: Clopidogrel 75 MG TAB PO (09:20)
[2021-10-09] MEDS: levETIRAcetam 500 MG TAB 1000 MG PO ×2 (09:21→18:46)
[2021-10-09] MEDS: Levothyroxine 75 MCG TAB PO (09:22)
[2021-10-09] MEDS: MAGNESIUM SULFATE 2 GM/50 ML BAG IVPB (09:49)
[2021-10-09 10:39] LABS: Fibrinogen (Stat) (Littleton) 364 mg/dL (208-434)
--- NOTE | 2021-10-09 11:16 | ED.PROG_ITS ---
Date of service: 10/09/21 Time of Service: 11:16 Medical Decision Making patient with history of kidney transplant with worsening creatinine and low magnesium level, still waiting for bed placement at [facility] who manages his transplant. He is currently sitting in a reclining chair in no distress and currently has no complaints. Will continue to monitor until bed placement found, still no beds available upstairs as well. He is still covid positive and has been positive for 2-3 weeks now per the patient, no oxygen requirement, no dyspnea. Has a chronic dry cough per patient from second hand smoke exposure from parents and is at his baseline currently [facility] not able to take him today, hopeful for tomorrow. We have beds now here so discussed with hospitalist who accepts for admission Sign Out Sign Out Data: Sign Out Comment: Patient pending review of labs and reassessment after hydration for concern of dehydration secondary to COVID with GI symptoms. Last updated by Davide Yan, CHERI at 10/08/21 16:17 Sign Out Comment: Patient is a renal transplant recipient approximately 4 years ago at [facility]. COVID-positive approximately 2-3 weeks ago. Now with dehydration, diarrhea, hypotension. Responded well to IV fluid. Leukopenia, thrombocytopenia, SOLOMON, spoke with the transplant team at [facility] who recommended transfer to the ER; however, ER at capacity and not excepting transfer. Then spoke with Dr. Mcintyre, nephrology, who will be able to accept the patient to the transplant floor into the care of Dr. Maldonado, but they are at capacity and likely will not happen until tomorrow. We are at capacity as well and will hold the patient in the ER. Last updated by Chadwick Corley PA at 10/08/21 22:57 Sign Out Comment: Renal transplant patient pending transfer to [facility]. Repeat chemistries pending. Last updated by Thomas Gomez MD at 10/09/21 07:27 Discharge Plan Disposition Patient Disposition: [facility] INPATIENT Condition: Serious Discharge Details Clinical Impression: Acute dehydration, SARS-CoV-2 positive, Acute kidney injury (nontraumatic), Acute diarrhea, Hypomagnesemia Primary Care Provider: Shahzad Domingo ED Provider: Tip Dean Home Meds and New Rx's Prescriptions: No Action clopidogrel [Plavix] 75 MG tablet 75 mg PO DAILY citalopram 40 MG tablet 40 mg PO DAILY calcitriol 0.25 MCG capsule 0.25 mcg PO DAILY atorvastatin [Lipitor] 40 MG tablet 40 mg PO DAILY levetiracetam [Keppra] 250 MG tablet 1,000 mg PO BID Astagraf XL 1 mg Capsule,Extended Release 24hr 4 mg PO QAM carvedilol 3.125 mg tablet 3.125 mg PO BID Label Comments: TAKE ONE TABLET BY MOUTH TWICE A DAY levothyroxine 75 mcg tablet 75 mcg DAILY Label Comments: TAKE ONE TABLET BY MOUTH EVERY DAY mycophenolate sodium 180 mg tablet,delayed release (DR/EC) 180 tab PO USEASDIRECTD Label Comments: TAKE 3 TABLETS BY MOUTH EVERY MORNING AND 2 TABLETS EVERY EVENING Rx Instructions: 180 mg, 3 tabs in am, 2 tab in afternoon prednisone 5 mg tablet 5 mg PO DAILY Label Comments: TAKE 1 TABLET BY MOUTH DAILY
[2021-10-09 13:39] LABS: Bilirubin Negative (Negative); Blood Negative (Negative); Clarity Clear (Clear); Glucose Negative (Negative); Ketones Trace mg/dL (Negative); Leukocyte Esterase Negative (Negative); Nitrite Negative (Negative); Specific Gravity 1.025 (1.005-1.025); Urobilinogen 0.2 EU/dL (Up TO 0.2); pH 5.5 (5-8)
--- NOTE | 2021-10-09 15:55 | NUR.NOTE ---
pt s has brought his mycophenolate 180 mg tabs he had three tabs this morning . she brought two tabs for tonight . she also gave him his astrograph this morning and has tonights dose Nursing Note:
[2021-10-10] MEDS: Lactated Ringers 1,000 ML 150 ML IV ×3 (00:01→15:01)
--- NOTE | 2021-10-10 00:02 | HPE_ITS ---
Date of service: 10/09/21 Time of Service: 23:30 Assessment and Plan Assessment and plan (1) Acute dehydration: Start date: 10/09/21 Status: Acute Assessment and plan: This is a 65-year-old gentleman status post renal transplant presenting with COVID-19 infection mostly manifested with GI symptoms presently and dehydration. He is responding to IV lactated Ringer's awaiting transfer to [facility] to his specialty care team who usually takes care of him. He was in the ED now on MedSurg for continued support. He is a full code. (2) SARS-CoV-2 positive: Start date: 09/29/21 Status: Acute Assessment and plan: Continue isolation with supportive care. Patient is not having respiratory symptoms or hypoxemia and is not on oxygen. He did not receive any treatment for his COVID-19 infection initially. He has been vaccinated. (3) Acute kidney injury (nontraumatic): Start date: 10/09/21 Status: Acute Assessment and plan: Worsening renal function with transplant, patient does respond to IV fluid resuscitation with urine output hopefully trending creatinine will show improvement. Patient does need to be in [facility] for specialty care. This is pending bed availability. (4) Acute diarrhea: Start date: 10/04/21 Status: Acute Assessment and plan: Most likely associated with viral infection with COVID-19. Bacterial investigations negative thus far. Supportive care with diarrhea actually slowly resolving. (5) Hypomagnesemia: Start date: 10/09/21 Status: Acute Assessment and plan: Replete with IV magnesium as needed. Monitor lab. (6) Kidney transplant recipient: Status: Chronic Assessment and plan: On immunosuppressants and compromised with bacterial or viral infection. Transfer to [facility] as soon as bed available. Monitor for secondary infections which could be treated differently than support. (7) Seizure disorder: Status: Chronic Assessment and plan: Continue Keppra and monitor for breakthrough seizure activity. History of Present Illness Narrative: This is a 65-year-old male with a past medical history of a kidney transplant recipient, CAD with stent placement, seizure disorder, depression, gout, hypertension, on both mycophenolate sodium and tacrolimus, who is vaccinated against COVID but did have COVID approximately 10 days ago now with family GI symptoms and testing positive initgially mild respiratory symptoms but did not have any remdesivir infusion or Paxlovid, now presenting from his PCPs office fo r ongoing diarrhea though slowing, hypotension, dehydration and did have a negative stool cultures and C. difficile.? Patient received 1 L IV fluids prior to arrival and received a liter of lactated Ringer's in the ER initially with continued hydration with LR awaiting transfer to [facility] where he has been accepted with bed pending. Awaiting transfer patient has been receiving continued IV hydration in the ED until admission late today 10/09/2021 having adequate urine output. He was having less symptoms but he continues with lack of appetite with loose but formed stools. ED provider clinical decision and communication: ED provider on 10/08/2021?received a call from Dr. Mcintyre at 1953, nephrology from [facility].? She states that she would like me to add on a fibrinogen, haptoglobin and LDH.? The patient has had 3 L normal saline combined and she recommends no more IV fluid unless patient becomes hypotensive again.? She does believe given his immunocompromised state, leukopenia, thrombocytopenia, SOLOMON, overall presentation, that transfer to her facility is warranted.? She plans to have the patient excepted to the transplant unit floor into the care of Dr. Maldonado, but unfortunately they cannot accept care of the patient this evening. She or her team will contact our hospital tomorrow to discuss her bed capacity and check in on the patient. Review of Systems Narrative: 13 point review of systems otherwise unrevealing or stable. PFSH All Active Problems Acute dehydration (Acute) SARS-CoV-2 positive (Acute) Acute kidney injury (nontraumatic) (Acute) Acute diarrhea (Acute) Hypomagnesemia (Acute) Tubular adenoma of colon (Acute 12/23/15) Kidney transplant recipient (Chronic) Hx of CABG (Chronic) History of eye surgery (Acute) History of coronary artery stent placement (Chronic) Colonoscopy - MAC (Acute 12/03/15) Obstructive sleep apnea (Chronic) Seizure disorder (Chronic) Depression (Chronic) Gout (Chronic) Hx of hyperlipidemia (Acute) IgA nephropathy (Acute) Renal failure (Chronic) Coronary artery disease (Chronic) HTN (hypertension) (Chronic) Social History Smoking/Tobacco Use Status: Never Smoking risk assessment performed?: Yes Alcohol Intake: never Drug use: Never Do you feel safe at home: Yes Do you feel safe in your relationship?: Yes Meds Allergies and Home Medications Allergies Allergy/AdvReac Type Severity Reaction Status Date / Time levofloxacin Allergy Severe Unverified 10/08/21 16:02 sodium bicarbonate Allergy Severe seizures Unverified 10/08/21 16:02 lisinopril Allergy Intermediate Hives Unverified 10/08/21 16:02 amoxicillin [From Augmentin] Allergy Unverified 10/08/21 16:02 clavulanic acid Allergy Unverified 10/08/21 16:02 [From Augmentin] gabapentin AdvReac Intermediate related to Unverified 10/08/21 16:02 dialysis furosemide [From Lasix] AdvReac Nausea Unverified 10/08/21 16:02 Home Medications Medication Instructions Recorded Confirmed Type citalopram 40 mg tablet 40 mg PO DAILY 08/18/12 10/08/21 History calcitriol 0.25 mcg capsule 0.25 mcg PO DAILY 02/25/13 10/08/21 History atorvastatin 40 mg tablet (Lipitor) 40 mg PO DAILY 05/26/14 10/08/21 History levetiracetam 250 mg tablet 1,000 mg PO BID 02/19/16 10/08/21 History (Keppra) clopidogrel 75 mg tablet (Plavix) 75 mg PO DAILY 05/11/16 10/08/21 History tacrolimus 1 mg capsule,extended 4 mg PO QAM 09/03/18 10/08/21 History release 24 hr (Astagraf XL) carvedilol 3.125 mg tablet 3.125 mg PO BID 10/08/21 10/08/21 History levothyroxine 75 mcg tablet 75 mcg DAILY 10/08/21 10/08/21 History mycophenolate sodium 180 mg 180 tab PO USEASDIRECTD 10/08/21 10/08/21 History tablet,delayed release prednisone 5 mg tablet 5 mg PO DAILY 10/08/21 10/08/21 History Exam Narrative Exam Narrative: General: Patient appears older than stated age, moderately obese, alert and oriented x3 and in no acute distress. HEENT: Normocephalic with coarsened facial droop, eyes with pupils equal and reactive to light symmetrically, extraocular movements intact sclera anicteric. Oral mucosa was dry membranes. Neck: Supple without JVD. Back: Stooped posture without CVA tenderness. Lungs: Bronchovesicular breath sounds with fair aeration. No focalizing rales or rhonchi. Heart: Regular rate and rhythm with no murmurs or gallop. Distant heart sounds. Abdomen: Obese contour, soft to palpate without guarding or rebound. No palpable masses and no palpable hepatosplenomegaly. Genitalia/rectal: Exam deferred. Extremities: Without clubbing, cyanosis or pitting edema with moderate nonpitting edema over legs. Fair capillary refill. Skin: Dry and rough texture with normal color with over sun exposed areas, warm to touch and dry. Neuro: Cranial nerves II through XII, no focalizing motor deficit. Psych: Normal affect and mood. No abnormal thought processes. Remote and intact recent memory intact. Results Labs Result diagrams: 10/10/21 06:50 10/10/21 06:50 Labs: Laboratory Results - last 24 hr 10/09/21 10/09/21 10/09/21 08:00 08:00 08:00 WBC RBC Hgb Hct MCV MCH MCHC RDW Plt Count MPV Immature Gran % Neutrophils % Lymphocytes % Monocytes % Eosinophils % Basophils % Nucleated RBC % Absolute Neutrophils Absolute Lymphocytes Absolute Monocytes Absolute Eosinophils Absolute Basophils RBC Morphology Fibrinogen 364 Sodium 139 Potassium 5.0 Chloride 110 H Carbon Dioxide 18.0 L Anion Gap 11.0 BUN 47 H Creatinine 2.3 H Estimated GFR/1.73 m2 28.59 Glucose 85 Calcium 8.9 Magnesium 1.9 Lactate Dehydrogenase 207 Urine Color Urine Clarity Urine pH Ur Specific [place] Urine Protein Urine Ketones Urine Blood Urine Nitrite Urine Bilirubin Urine Urobilinogen Ur Leukocyte Esterase Urine Glucose 10/09/21 10/09/21 10/09/21 08:00 08:00 13:00 WBC 3.37 L RBC 3.74 L Hgb 11.2 L Hct 34.8 L MCV 93 MCH 29.9 MCHC 32.2 D RDW 13.3 Plt Count 99 L MPV 10.1 Immature Gran % 0.6 Neutrophils % 67.4 Lymphocytes % 24.3 Monocytes % 5.9 Eosinophils % 1.5 Basophils % 0.3 Nucleated RBC % 0.0 Absolute Neutrophils 2.27 Absolute Lymphocytes 0.82 L Absolute Monocytes 0.20 Absolute Eosinophils 0.05 Absolute Basophils 0.01 RBC Morphology Normal Fibrinogen Sodium Potassium Chloride Carbon Dioxide Anion Gap BUN Creatinine Estimated GFR/1.73 m2 Glucose Calcium Magnesium Cancelled Lactate Dehydrogenase Urine Color Yellow Urine Clarity Clear Urine pH 5.5 Ur Specific [place] 1.025 Urine Protein Negative Urine Ketones Trace H Urine Blood Negative Urine Nitrite Negative Urine Bilirubin Negative Urine Urobilinogen 0.2 Ur Leukocyte Esterase Negative Urine Glucose Negative Last Vital Signs Temp 37.1 C 10/09/21 20:01 Pulse 60 10/09/21 20:01 Resp 18 10/09/21 20:01 BP 123/53 L 10/09/21 20:01 Pulse Ox 95 10/09/21 20:01
[2021-10-10] MEDS: Levothyroxine 75 MCG TAB PO (06:29)
[2021-10-10 07:22] LABS: Abs Immature Grans 0.02 10^3/uL (0.0-0.06); Absolute Eosinophil Count 0.03 10^3/uL (0.0-0.7); Absolute Monocyte Count 0.14 10^3/uL (0.1-0.8); Absolute Neutrophil Count 1.91 10^3/uL (1.2-6.7); HCT 31.8 % (40.0-50.0); HGB 10.3 g/dL (13.5-17.5); Immature Grans % 0.7; Lymphocytes % 27.6; MCH 29.9 pg (27.0-33.0); MCHC 32.4 % (32.0-36.0); MCV 92 fL (80-95); MPV 9.7 fL (8.0-11.0); Monocytes % 4.8; Neutrophils % 65.9; RBC 3.44 10^6/uL (4.36-5.78); RDW 13.4 % (11.8-14.1); RDW-SD 45.7 fL
[2021-10-10 07:37] LABS: INR 1.1 (0.9-1.1)
[2021-10-10 07:45] LABS: Basophilic Stippling Present; Diff Comment Diff Reviewed; Platelet Count 95 10^3/uL (130-400)
[2021-10-10 07:53] LABS: ALT 42 U/L (16-63); AST 28 U/L (15-37); Albumin 2.9 g/dL (3.4-5.0); Alkaline Phosphatase 97 U/L (46-116); BUN 34 mg/dL (7-18); Bilirubin, Total 0.3 mg/dL (0.2-1.0); CREATININE 1.7 mg/dL (0.70-1.30); Calcium 8.6 mg/dL (8.5-10.1); Chloride 109 mmol/L (98-107); Estimated GFR 40.53 (mL/min/1.73m2); Glucose 97 mg/dL (74-106); Potassium 4.6 mmol/L (3.5-5.1); Sodium 138 mmol/L (136-145); Total Protein 5.8 g/dL (6.4-8.2)
[2021-10-10 07:56] LABS: Magnesium 1.6 mg/dL (1.8-2.4); TSH (W/Ref FT4) 0.22 uIU/mL (0.36-3.74)
[2021-10-10 08:11] LABS: FREE T4 1.23 ng/dL (0.76-1.46)
[2021-10-10 08:44] VITALS: BP 125/52; PULSE 60; RESP 18; TEMP 36.6; O2SAT 93
[2021-10-10] MEDS: levETIRAcetam 500 MG TAB 1000 MG PO ×2 (08:45→20:12)
[2021-10-10] MEDS: Carvedilol 3.125 MG TAB PO (08:45)
[2021-10-10] MEDS: Clopidogrel 75 MG TAB PO (08:45)
[2021-10-10] MEDS: Citalopram 20 MG TAB 40 MG PO (08:45)
[2021-10-10] MEDS: Calcitriol 0.25 MCG CAP PO (08:45)
[2021-10-10] MEDS: predniSONE 5 MG TAB PO (08:46)
[2021-10-10 08:57] LABS: C Diff PCR Negative (Negative)
[2021-10-10] MEDS: MAGNESIUM SULFATE 1 GM/100 ML BAG IVPB (09:10)
[2021-10-10 12:20] VITALS: BP 114/54; PULSE 60; RESP 18; TEMP 36.6; O2SAT 94
[2021-10-10] MEDS: REMDESIVIR 200 MG in Normal Saline 250 ML 250 MG IVPB (15:02)
[2021-10-10 15:10] VITALS: BP 151/57; PULSE 55; RESP 18; TEMP 37.2; O2SAT 92
--- NOTE | 2021-10-10 17:39 | PGE_ITS ---
Date of Service Date of service: 10/10/21 Time of Service: 17:40 Assessment and Plan Assessment and plan (1) Acute dehydration: Start date: 10/09/21 Status: Acute Assessment and plan: clinically, he is euvolemic at this point if not slightly fluid overloaded. D/c IVF and monitor Cr. Monitor I/Os. (2) SARS-CoV-2 positive: Start date: 09/29/21 Status: Acute Assessment and plan: Started on remdesivir. (3) Pancytopenia: Status: Acute Assessment and plan: Due to COVID-19. [facility]overing. [facility] (4) Acute kidney injury (nontraumatic): Start date: 10/09/21 Status: Acute Assessment and plan: In a transplant patient. Improved with IV hydration. Near baseline kidney functioN (Cr is 1.7 today; baseline is 1.5). Continue to monitor with IVF being turned off. Transplant meds adjusted to mycophenylate 180 mg PO BID x 2 weeks (then 360 mg PO BID). Continue prednisone and tacrolimus. No evidence of adrenal insuff iciency at this time. (5) Acute diarrhea: Start date: 10/04/21 Status: Resolved Assessment and plan: Likely due to COVID-19. C.Diff negative. No further workup. (6) Hypomagnesemia: Start date: 10/09/21 Status: Acute Assessment and plan: Replete and recheck in am (7) Kidney transplant recipient: Status: Chronic Assessment and plan: [facility] transfer is no longer being planned, as discussed with Dr Mcintyre. Transplant meds: mycophenolate 180 mg PO BID x 2 weeks, then 360 mg PO BID, tacrolimus (astagraf XL) 4 mg PO Qam, prednisone [address] Mcintyre's phone number is [phone], should we have any questions. (8) Seizure disorder: Status: Chronic Assessment and plan: Continue Keppra (9) DVT prophylaxis: Status: Acute Assessment and plan: SCDs (hold chemical DVT ppx in light of thrombocytopenia) (10) Discharge planning issues: Status: Acute Assessment and plan: Full code Keep at [facility] Continues to require hospitalization. Subjective Subjective Interval history since last seen: Mr Rangel is feeling better. He has not had diarrhea. He denies dizziness, chest pain, shortness of breath, nausea. He endorses an occasional dry cough. Case was discussed with Mr Rangel's elevator technician at [facility] - Dr Mcintyre (her cell phone number, should we have any questions, is [phone]). I updated her on the patients UOP, his kidney function, and she felt that he had improved to the point of not requiring transfer to [facility] anymore. She recommended treating his COVID-19 with remdesivir. She had recommended that we decrease his myfortic to 180 mg BID x 2 weeks, after which it can go back to 360 mg PO BID. She recommended continuing his home dose of tacrolimus. Exam Narrative Exam Narrative: General: Pleasant obese male who looks comfortable laying flat in bed, A&Ox3, NAD, on RA, no dyspnea/tachypnea/cyanosis HEENT: EOMI, MMM Heart: RRR, no m/r/g Lungs: faint rhonchi B Abdomen: soft, nontender, nondistended Extremities: no edema BLEs Objective Last Vital Signs Temp 37.2 C 10/10/21 15:10 Pulse 55 L 10/10/21 15:10 Resp 18 10/10/21 15:10 BP 151/57 H 10/10/21 15:10 Pulse Ox 92 10/10/21 15:10 Laboratory Results - last 24 hr 10/10/21 10/10/21 10/10/21 06:35 06:50 06:50 WBC RBC Hgb Hct MCV MCH MCHC RDW Plt Count MPV Immature Gran % Neutrophils % Lymphocytes % Monocytes % Eosinophils % Basophils % Nucleated RBC % Absolute Neutrophils Absolute Lymphocytes Absolute Monocytes Absolute Eosinophils Absolute Basophils RBC Morphology Basophilic Stippling PT 11.0 INR 1.1 Sodium Potassium Chloride Carbon Dioxide Anion Gap BUN Creatinine Estimated GFR/1.73 m2 Glucose Calcium Magnesium 1.6 L Total Bilirubin AST ALT Alkaline Phosphatase Total Protein Albumin TSH 0.22 L Free T4 1.23 Stl C.difficile Tox PCR Negative 10/10/21 10/10/21 06:50 06:50 WBC 2.90 L RBC 3.44 L Hgb 10.3 L Hct 31.8 L MCV 92 MCH 29.9 MCHC 32.4 RDW 13.4 Plt Count 95 L MPV 9.7 Immature Gran % 0.7 Neutrophils % 65.9 Lymphocytes % 27.6 Monocytes % 4.8 Eosinophils % 1.0 Basophils % 0.0 Nucleated RBC % 0.0 Absolute Neutrophils 1.91 Absolute Lymphocytes 0.80 L Absolute Monocytes 0.14 Absolute Eosinophils 0.03 Absolute Basophils 0.00 RBC Morphology See Below Basophilic Stippling Present PT INR Sodium 138 Potassium 4.6 Chloride 109 H Carbon Dioxide 19.0 L Anion Gap 10.0 BUN 34 H Creatinine 1.7 H Estimated GFR/1.73 m2 40.53 Glucose 97 Calcium 8.6 Magnesium Total Bilirubin 0.3 AST 28 ALT 42 Alkaline Phosphatase 97 Total Protein 5.8 L Albumin 2.9 L TSH Free T4 Stl C.difficile Tox PCR
[2021-10-10 20:09] VITALS: BP 114/46; PULSE 59; RESP 18; TEMP 37.3; O2SAT 92
[2021-10-10] MEDS: Atorvastatin 40 MG TAB PO (20:14)
--- NOTE | 2021-10-10 21:22 | PDOC.CMIN ---
- If Service Date Differs Date of service: 10/10/21 Time of Service: 21:22 Care Management Initial Assess REASON FOR HOSPITALIZATION:: Diarrhea, Dehydration with SOLOMON, Renal Transplant PAST MEDICAL HISTORY/PAST SURGICAL HISTORY:: Acute dehydration (Acute). SARS-CoV-2 positive (Acute). Acute kidney injury (nontraumatic) (Acute). Acute diarrhea (Acute). Hypomagnesemia (Acute). Tubular adenoma of colon (Acute 12/23/15). Kidney transplant recipient (Chronic). Hx of CABG (Chronic). History of eye surgery (Acute). History of coronary artery stent placement (Chronic). Colonoscopy - MAC (Acute 12/03/15). Obstructive sleep apnea (Chronic). Seizure disorder (Chronic). Depression (Chronic). Gout (Chronic). Hx of hyperlipidemia (Acute). IgA nephropathy (Acute). Renal failure (Chronic). Coronary artery disease (Chronic). HTN (hypertension) (Chronic) PREVIOUS FUNCTIONAL STATUS/SOCIAL/FAMILY SUPPORTS:: Resides in [facility] with , Heather. Daughter, Mary resides in [facility] as well. CURRENT FUNCTIONAL STATUS:: Guevara remains inpatient awaiting bed availability for [facility]. CM continues to follow. ADVANCE DIRECTIVES:: None on file. Has patient been provided with info about the portal/API?: Yes Did the patient sign up for the portal?: No CODE STATUS:: Full Code INSURANCE COVERAGE / FINANCIAL ISSUES:: Medicare. [employer] PRIMARY CARE PHYSICIAN:: Shahzad Domingo POTENTIAL DISCHARGE NEEDS:: Transfer to [facility], via EMS-coordinated by NS. PATIENT/FAMILY EDUCATION NEEDS:: Review transfer considerations. ANTICIPATED BARRIERS TO DISCHARGE:: None identified. TRANSPORTATION:: Via EMS. PLAN:: Guevara will transfer to [facility] when they are able to offer a bed.
[2021-10-10 23:55] VITALS: BP 108/48; PULSE 59; RESP 18; TEMP 36.9; O2SAT 92
[2021-10-11 03:49] VITALS: BP 112/56; PULSE 62; RESP 20; TEMP 37; O2SAT 92
[2021-10-11] MEDS: Levothyroxine 75 MCG TAB PO (06:35)
[2021-10-11 07:24] LABS: Abs Immature Grans 0.03 10^3/uL (0.0-0.06); Absolute Eosinophil Count 0.03 10^3/uL (0.0-0.7); Absolute Lymphocyte Count 1.01 10^3/uL (1.2-3.4); Absolute Monocyte Count 0.23 10^3/uL (0.1-0.8); Absolute Neutrophil Count 2.07 10^3/uL (1.2-6.7); Eosinophils % 0.9; HCT 35.3 % (40.0-50.0); HGB 11.1 g/dL (13.5-17.5); Immature Grans % 0.9; MCH 29.4 pg (27.0-33.0); MCHC 31.4 % (32.0-36.0); MCV 94 fL (80-95); MPV 9.8 fL (8.0-11.0); Monocytes % 6.8; Neutrophils % 61.4; Platelet Count 104 10^3/uL (130-400); RBC 3.77 10^6/uL (4.36-5.78); RDW 13.4 % (11.8-14.1); RDW-SD 46.1 fL; WBC 3.37 10^3/uL (4.4-10.8)
[2021-10-11 07:32] LABS: INR 1.1 (0.9-1.1); Prothrombin Time 10.9 sec (9.3-11.0)
[2021-10-11 07:47] LABS: Anion Gap 9.6 mmol/L (3-11); BUN 28 mg/dL (7-18); CO2 20.4 mmol/L (21.0-32.0); CREATININE 1.6 mg/dL (0.70-1.30); Calcium 9.1 mg/dL (8.5-10.1); Chloride 109 mmol/L (98-107); Estimated GFR 43.46 (mL/min/1.73m2); Glucose 87 mg/dL (74-106); Magnesium 1.8 mg/dL (1.8-2.4); Sodium 139 mmol/L (136-145)
[2021-10-11 08:13] VITALS: BP 114/49; PULSE 63; RESP 19; TEMP 36.8; O2SAT 91
[2021-10-11] MEDS: Citalopram 20 MG TAB 40 MG PO (08:16)
[2021-10-11] MEDS: Calcitriol 0.25 MCG CAP PO (08:16)
[2021-10-11] MEDS: Clopidogrel 75 MG TAB PO (08:17)
[2021-10-11] MEDS: Carvedilol 3.125 MG TAB PO (08:17)
[2021-10-11] MEDS: predniSONE 5 MG TAB PO (08:17)
[2021-10-11] MEDS: levETIRAcetam 500 MG TAB 1000 MG PO (08:17)
[2021-10-11 09:08] LABS: Haptoglobin 223 mg/dL (32-197)
[2021-10-11 11:23] LABS: Lyme Ab w Rflx to Lyme Confirm Negative (Negative)
[2021-10-11 12:02] VITALS: BP 132/60; PULSE 54; RESP 19; TEMP 37.2; O2SAT 92
--- NOTE | 2021-10-11 15:54 | DSE_ITS ---
Date of service: 10/11/21 Time of Service: 15:54 DS: Diagnosis Discharge Diagnosis (1) Acute dehydration: Status: Acute (2) SARS-CoV-2 positive: Status: Acute (3) Pancytopenia: Status: Acute (4) Acute kidney injury (nontraumatic): Status: Acute (5) Acute diarrhea: Status: Resolved (6) Hypomagnesemia: Status: Acute (7) Kidney transplant recipient: Status: Chronic (8) Seizure disorder: Status: Chronic (9) DVT prophylaxis: Status: Acute (10) Discharge planning issues: Status: Acute Discharge Plan Disposition Patient Disposition: HOME Condition: Improving Discharge Details Reason For Visit: Diarrhea,Dehydration with SOLOMON, Renal transplant... Admit Date/Time: 10/10/21 00:00 Admit Provider: Roni Retana Attending Provider: Roni Retana Primary Care Provider: Shahzad Domingo Hospital Course Hospital Course: This is a 65-year-old male with a past medical history of a kidney transplant recipient, CAD with stent placement, seizure disorder, depression, gout, hypertension, on both mycophenolate sodium and tacrolimus, who is vaccinated against COVID but did have COVID approximately 10 days ago now with family GI symptoms and testing positive initgially mild respiratory symptoms but did not have any remdesivir infusion or Paxlovid, now presenting from his PCPs office for ongoing diarrhea though slowing, hypotension, dehydration and did have a negative stool cultures and C. difficile.? Patient received 1 L IV fluids prior to arrival and received a liter of lactated Ringer's in the ER initially with continued hydration with LR awaiting transfer to [facility] where he has been accepted with bed pending. Awaiting transfer patient has been receiving continued IV hydration in the ED until admission late today 10/09/2021 having adequate urine output.? He was having less symptoms but he continues with lack of appetite with loose but formed stools. ED provider clinical decision and communication: ED provider on 10/08/2021?received a call from Dr. Mcintyre at 1953, nephrology from [facility].? She states that she would like me to add on a fibrinogen, haptoglobin and LDH.? The patient has had 3 L normal saline combined and she recommends no more IV fluid unless patient becomes hypotensive again.? She does believe given his immunocompromised state, leukopenia, thrombocytopenia, SOLOMON, overall presentation, that transfer to her facility is warranted.? She plans to have the patient excepted to the transplant unit floor into the care of Dr. Maldonado, but unfortunately they cannot accept care of the patient this evening. She or he r team will contact our hospital tomorrow to discuss her bed capacity and check in on the patient. His creatinine was initially 1.9. With hydration it improved to 1.6. Hospitalist team consulted with [facility] renal transplant physician Dr Mcintyre. His mycophenolate was decreased to 180mg BID and will stay on this dosage for 2 weeks. After those 2 weeks it will increase to 360mg BID. Follow up with PCP in 1-2 weeks. Call nephrology at [facility] for f/u appt scheduling. Home Meds and New Rx's Prescriptions: New levetiracetam 500 mg Tablet 1,000 mg PO BID Qty: 0 0RF mycophenolate sodium 180 mg Tablet,Delayed Release (Dr/Ec) 180 mg PO BID Qty: 0 0RF Rx Instructions: 180 mg BID for 2 weeks, then increase to 360mg BID Continued clopidogrel [Plavix] 75 MG tablet 75 mg PO DAILY citalopram 40 MG tablet 40 mg PO DAILY calcitriol 0.25 MCG capsule 0.25 mcg PO DAILY atorvastatin [Lipitor] 40 MG tablet 40 mg PO DAILY levetiracetam [Keppra] 250 MG tablet 1,000 mg PO BID Astagraf XL 1 mg Capsule,Extended Release 24hr 4 mg PO QAM carvedilol 3.125 mg tablet 3.125 mg PO BID Label Comments: TAKE ONE TABLET BY MOUTH TWICE A DAY levothyroxine 75 mcg tablet 75 mcg DAILY Label Comments: TAKE ONE TABLET BY MOUTH EVERY DAY prednisone 5 mg tablet 5 mg PO DAILY Label Comments: TAKE 1 TABLET BY MOUTH DAILY Discontinued mycophenolate sodium 180 mg tablet,delayed release (DR/EC) 180 tab PO USEASDIRECTD Label Comments: TAKE 3 TABLETS BY MOUTH EVERY MORNING AND 2 TABLETS EVERY EVENING Rx Instructions: 180 mg, 3 tabs in am, 2 tab in afternoon Discharge Instructions Instructions: Dehydration (DC), Acute Kidney Injury (DC) Stand Alone Forms: Nursing Discharge Form Referrals: Shahzad Domingo MD [Primary Care Provider] - 10/26/21 9:30 am Activity:: Activity as Tolerated Equipment/Supplies:: No Equipment Needed Diet:: Resume usual diet Discharge Orders Discharge Orders: Discharge Order (Routine); Ordered 10/11/21 Ordered By: Ayush Morataya DS: Summary Time Spent with Patient providing and/or coordinating discharge services: Greater than 30 minutes Status at Discharge Functional status at discharge: independent ambulation Overall status at discharge: patient is progressing back to baseline Mental Status: mental status grossly normal Speech and Movement: speech and movement normal Mood: congruent mood Affect: normal affect Exam Psych Mental Status: mental status grossly normal Speech and Movement: speech and movement normal Mood: congruent mood Affect: normal affect DS: Data Vitals/I&O Vitals and I&O: Vital Signs Temperature 37.2 C 10/11/21 12:02 Temperature Source Tympanic 10/11/21 12:02 Pulse 54 L 10/11/21 12:02 Pulse Rhythm Regular 10/11/21 09:22 Pulse 60 10/09/21 19:25 Respiratory Rate 19 10/11/21 12:02 Respiratory Effort Non-Labored 10/11/21 09:22 Respiratory Depth Normal 10/11/21 09:22 Respiratory Pattern Normal 10/11/21 09:22 Blood Pressure 132/60 10/11/21 12:02 Blood Pressure Mean 71 10/09/21 19:00 Pulse Oximetry 92 10/11/21 12:02 Oxygen Delivery Method Room Air 10/11/21 12:02 Oxygen Flow Rate 0 10/11/21 12:02 Pain Level 0 10/11/21 12:02 Comment 10/10/21 20:09 Intake & Output 10/10/21 10/11/21 10/11/21 23:59 11:59 23:59 Intake Total 2200 / 4302.5 490 / 490 Output Total 200 / 575 302 / 302 Balance 2000 / 3727.5 188 / 188 Weight 117 kg Intake: IV 1650 / 3502.5 Oral 550 / 800 490 / 490 Output: Urine 200 / 575 302 / 302 Other: Urine Color Light Radha Pale Yellow Urine Appearance Clear Clear Urine Odor None None Comment Patient voided into toilet. in toilet Stool Characteristics Soft Voiding Methods Indwelling Catheter Toilet Data Completed and Pending Labs on day of discharge: Labs from last 24 hours 10/11/21 10/11/21 10/11/21 06:35 06:35 06:35 WBC 3.37 L RBC 3.77 L Hgb 11.1 L Hct 35.3 L MCV 94 MCH 29.4 MCHC 31.4 L D RDW 13.4 Plt Count 104 L MPV 9.8 Immature Gran % 0.9 Neutrophils % 61.4 Lymphocytes % 30.0 Monocytes % 6.8 Eosinophils % 0.9 Basophils % 0.0 Nucleated RBC % 0.0 Absolute Neutrophils 2.07 Absolute Lymphocytes 1.01 L Absolute Monocytes 0.23 Absolute Eosinophils 0.03 Absolute Basophils 0.00 Haptoglobin PT 10.9 INR 1.1 Sodium Potassium Chloride Carbon Dioxide Anion Gap BUN Creatinine Estimated GFR/1.73 m2 Glucose Calcium Magnesium Tacrolimus Pending Lyme Disease Antibody 10/11/21 10/09/21 10/08/21 06:35 08:00 17:22 WBC RBC Hgb Hct MCV MCH MCHC RDW Plt Count MPV Immature Gran % Neutrophils % Lymphocytes % Monocytes % Eosinophils % Basophils % Nucleated RBC % Absolute Neutrophils Absolute Lymphocytes Absolute Monocytes Absolute Eosinophils Absolute Basophils Haptoglobin 223 H PT INR Sodium 139 Potassium 5.0 Chloride 109 H Carbon Dioxide 20.4 L Anion Gap 9.6 BUN 28 H Creatinine 1.6 H Estimated GFR/1.73 m2 43.46 Glucose 87 Calcium 9.1 Magnesium 1.8 Tacrolimus Lyme Disease Antibody Negative PFSH All Active Problems Pancytopenia (Acute) Discharge planning issues (Acute) DVT prophylaxis (Acute) Acute dehydration (Acute) SARS-CoV-2 positive (Acute) Acute kidney injury (nontraumatic) (Acute) Hypomagnesemia (Acute) Tubular adenoma of colon (Acute 12/23/15) Kidney transplant recipient (Chronic) Hx of CABG (Chronic) History of eye surgery (Acute) History of coronary artery stent placement (Chronic) Colonoscopy - MAC (Acute 12/03/15) Obstructive sleep apnea (Chronic) Seizure disorder (Chronic) Depression (Chronic) Gout (Chronic) Hx of hyperlipidemia (Acute) IgA nephropathy (Acute) Renal failure (Chronic) Coronary artery disease (Chronic) HTN (hypertension) (Chronic) Social History Smoking/Tobacco Use Status: Never Smoking risk assessment performed?: Yes Alcohol Intake: never Drug use: Never Do you feel safe at home: Yes Do you feel safe in your relationship?: Yes
[2021-10-11 16:30] VITALS: BP 113/54; PULSE 54; RESP 18; TEMP 37; O2SAT 92
--- NOTE | 2021-10-11 19:30 | PDOC.CMDIS ---
- If Service Date Differs Date of service: 10/11/21 Time of Service: 19:30 LACE Index Scoring Tool - Questions: Length of Stay (in days): 2 Acuity (Admit via E.D.?): Yes E.D. Visits: 1 - Answers: Total Score: 6 Risk of Readmission: Low Risk Care Management Discharge Reason for Hospitalization: Diarrhea, Dehydration with SOLOMON, Renal Transplant Discharge Plan: Guevara returned home today with no new services. He transported via private vehicle. He will follow up with his PCP and discharge plan of care. Patient/Family Education Needs: Review discharge instructions and limitations, discussion of self care needs including ask me three.
[2021-10-12 12:32] LABS: Anaplasma phagocytophilum Negative (Negative); B. miyamotoi PCR Negative (Negative); Babesia divergens/MO-1 Negative (Negative); Babesia duncani Negative (Negative); Babesia microti Negative (Negative); Ehrlichia chaffeensis Negative (Negative); Ehrlichia ewingii/canis Negative (Negative); Ehrlichia muris eauclairensis Negative (Negative)
== END 2021-10-11 17:00 | disposition home or self-care (01) | DRG 682 ==
LOC: ER 10-09 18:48 → MS 10-09 19:29
PROVIDERS: Internal Medicine; Nurse Practitioner Family; Physician Assistant; Student in an Organized Health Care Education/Training Program; Admitting Provider Family Medicine; Emergency Provider Emergency Medicine; PCP Internal Medicine; Visit Provider Family Medicine
DX: N17.9 Acute kidney failure, unspecified (principal); U07.1 COVID-19; A08.39 Other viral enteritis; D84.821 Immunodeficiency due to drugs; Z68.41 Body mass index [BMI] 40.0-44.9, adult; D61.818 Other pancytopenia; Z94.0 Kidney transplant status; N02.8 Recurrent and persistent hematuria with other morphologic changes; E86.0 Dehydration; E83.42 Hypomagnesemia; G40.909 Epilepsy, unspecified, not intractable, without status epilepticus; I25.10 Atherosclerotic heart disease of native coronary artery without angina pectoris; F32.A Depression, unspecified; M10.9 Gout, unspecified; I95.9 Hypotension, unspecified; D69.6 Thrombocytopenia, unspecified; D70.2 Other drug-induced agranulocytosis; G47.33 Obstructive sleep apnea (adult) (pediatric); N18.9 Chronic kidney disease, unspecified; E66.9 Obesity, unspecified; Z95.1 Presence of aortocoronary bypass graft; Z95.5 Presence of coronary angioplasty implant and graft; Z79.811 Long term (current) use of aromatase inhibitors; I10 Essential (primary) hypertension
CPT/HCPCS: 36415; 80048; 80053; 83690; 85384; 87040; 87493; 87635; 87798; 96361; 96365; 96366; 99284; 99285; 72050; 80197; 81003; 83010; 83605; 83615; 83735; 84439; 84443; 85025; 85610; 86618; 99220; 99233; 99239; J0248; J3475; J3490; J7512

== ENCOUNTER 2021-10-21 10:54 | Inpatient (IN) | payer MEDICARE, OTHER, SELFPAY ==
[2021-10-21] VITALS (25 sets, daily range): BP systolic 81–139; BP diastolic 49–70; PULSE 57–63; RESP 16–18; TEMP 35.6–36.6; O2SAT 93–100
--- NOTE | 2021-10-21 11:24 | ED.GENADUL_ITS ---
Discharge Plan Disposition Patient Disposition: [facility] INPATIENT Condition: Stable Discharge Details Clinical Impression: Acute dehydration, Acute kidney injury superimposed on chronic kidney disease, History of COVID-19 Admit Date/Time: 10/21/21 13:37 Admit Provider: Salma Seaman Attending Provider: Samla Seaman Primary Care Provider: Shahzad Domingo ED Provider: Teresa Law Discharge Data Discharge Date/Time-TO BE ENTERED AT DEPARTURE: 10/21/21 14:53 Medical Decision Making 65-year-old M w/ a history of kidney transplant, CAD with stent placement, CABG, seizure disorder, depression, gout, hypertension, on both mycophenolate sodium and tacrolimus, who is vaccinated against COVID but was diagnosed with COVID on 10/08/2021 presents from his primary care doctor's office Dr. Domingo for rehydration for concern for dehydration. He was admitted here 2 weeks ago for the same complaint. Blood pressure hypotensive compared to baseline, 99/49. He appears comfortable and nontoxic. He is afebrile. He has no other acute complaints other than generalized weakness, worse with exertion. History and presentation does not appear consistent with ACS, PE. Differential diagnosis includes post-COVID syndrome, dehydration, electrolyte abnormality, UTI. We will place an IV, bolus IV fluids, screening labs, urinalysis. Labs reviewed. Normal white blood cell count. Potassium 5.5. Creatinine 2.9 increased from recent baseline of 1.6, GFR diminished at 21. Case discussed with patient's transplant surgeon at [facility] Dr. Mcintyre --she is recommending admission for IV hydration, holding his tacrolimus as this may be contributing to SOLOMON and sending a tacrolimus level and they will follow- up with patient after discharge. Case discussed with Dr. Seaman who accepts patient for admission. She is requesting a bladder scan. An EKG, chest x-ray and COVID ordered. Medical Records Medical records reviewed: Yes I reviewed the patient's medical records. Imaging Data Radiologic Study: Radiologist's impression: XR PORTABLE CHEST AP CLINICAL HISTORY:? weakness, r/o acute disease TECHNIQUE:? 2D digital imaging was performed. COMPARISON:? No exams were available for comparison FINDINGS: Exam is limited by patient body habitus, portable technique and respiratory motion. LUNGS: Symmetric bilateral infiltrates may represent CHF.? No pneumothorax.? No visible effusion. HEART: Enlarged, unchanged. AORTA: Mildly ectatic. IMPRESSION: Cardiomegaly plaque and bilateral infiltrates, suspect CHF. Lab Data Lab results reviewed: Yes I reviewed the patient's lab results. Labs: Laboratory Tests Range/Units 10/21/21 10/21/21 10/21/21 11:40 11:40 11:40 WBC (4.4-10.8) 10^3/uL 6.91 RBC (4.36-5.78) 10^6/uL 3.89 L Hgb (13.5-17.5) g/dL 11.6 L Hct (40.0-50.0) % 36.2 L MCV (80-95) fL 93 MCH (27.0-33.0) pg 29.8 MCHC (32.0-36.0) % 32.0 RDW (11.8-14.1) % 13.2 Plt Count (130-400) 10^3/uL 115 L MPV (8.0-11.0) fL 10.1 Immature Gran % 1.4 Neutrophils % 77.1 Lymphocytes % 13.7 Monocytes % 7.4 Eosinophils % 0.3 Basophils % 0.1 Nucleated RBC % (0.0-0.3) % 0.0 Absolute Neutrophils (1.2-6.7) 10^3/uL 5.32 Absolute Lymphocytes (1.2-3.4) 10^3/uL 0.95 L Absolute Monocytes (0.1-0.8) 10^3/uL 0.51 Absolute Eosinophils (0.0-0.7) 10^3/uL 0.02 Absolute Basophils (0.0-0.2) 10^3/uL 0.01 Sodium (136-145) mmol/L 135 L Potassium (3.5-5.1) mmol/L 5.5 H Chloride (98-107) mmol/L 105 Carbon Dioxide (21.0-32.0) mmol/L 18.7 L Anion Gap (3-11) mmol/L 11.3 H BUN (7-18) mg/dL 66 H Creatinine (0.70-1.30) mg/dL 2.9 H Estimated GFR/1.73 m2 (mL/min/1.73m2) 21.88 Glucose (74-106) mg/dL 108 H Calcium (8.5-10.1) mg/dL 10.0 Total Bilirubin (0.2-1.0) mg/dL 0.5 AST (15-37) U/L 48 H ALT (16-63) U/L 60 Alkaline Phosphatase (46-116) U/L 93 Creatine Kinase (39-308) U/L 27 L Total Protein (6.4-8.2) g/dL 7.0 Albumin (3.4-5.0) g/dL 3.0 L Add-On Test Request Range/Units 10/21/21 13:36 WBC (4.4-10.8) 10^3/uL RBC (4.36-5.78) 10^6/uL Hgb (13.5-17.5) g/dL Hct (40.0-50.0) % MCV (80-95) fL MCH (27.0-33.0) pg MCHC (32.0-36.0) % RDW (11.8-14.1) % Plt Count (130-400) 10^3/uL MPV (8.0-11.0) fL Immature Gran % Neutrophils % Lymphocytes % Monocytes % Eosinophils % Basophils % Nucleated RBC % (0.0-0.3) % Absolute Neutrophils (1.2-6.7) 10^3/uL Absolute Lymphocytes (1.2-3.4) 10^3/uL Absolute Monocytes (0.1-0.8) 10^3/uL Absolute Eosinophils (0.0-0.7) 10^3/uL Absolute Basophils (0.0-0.2) 10^3/uL Sodium (136-145) mmol/L Potassium (3.5-5.1) mmol/L Chloride (98-107) mmol/L Carbon Dioxide (21.0-32.0) mmol/L Anion Gap (3-11) mmol/L BUN (7-18) mg/dL Creatinine (0.70-1.30) mg/dL Estimated GFR/1.73 m2 (mL/min/1.73m2) Glucose (74-106) mg/dL Calcium (8.5-10.1) mg/dL Total Bilirubin (0.2-1.0) mg/dL AST (15-37) U/L ALT (16-63) U/L Alkaline Phosphatase (46-116) U/L Creatine Kinase (39-308) U/L Total Protein (6.4-8.2) g/dL Albumin (3.4-5.0) g/dL Add-On Test Request DONE ECG Data Attestation: I personally reviewed and interpreted this ECG (s) as follows: Interpretation: Rate of 58, sinus, left bundle branch block, No significant change from previous EKG. No STEMI. HPI General Mode of arrival: ambulatory . Date/Time Provider Initiated Documentation: 10/21/21 11:24 . Limitations to Documentation: no limitations . Information obtained by: patient . HPI Narrative: Patient is a 65-year-old male with a history of kidney transplant, CAD with stent placement, CABG, seizure disorder, depression, gout, hypertension, on both mycophenolate sodium and tacrolimus, who is vaccinated against COVID but was diagnosed with COVID on 10/08/2021 presents from his primary care doctor's office Dr. Domingo for rehydration for concern for dehydration. Of note, patient was admitted here 2 weeks ago for similar symptoms and given IV fluid hydration and then discharge. He states plan had been for him to be transferred to [facility] but this did not occur. Patient states he has felt weak since he was diagnosed with COVID a couple weeks ago. He states his weakness is worse with any exertion. He states he has received a total of 4 COVID vaccines. He denies any fever, chest pain, shortness of breath, abdominal pain, nausea, vomiting, diarrhea or urinary symptoms. Related Data Home Medications Medication Instructions Recorded Confirmed citalopram 40 mg tablet 40 mg PO DAILY 08/18/12 10/21/21 calcitriol 0.25 mcg capsule 0.25 mcg PO DAILY 02/25/13 10/08/21 atorvastatin 40 mg tablet (Lipitor) 40 mg PO HS 05/26/14 10/21/21 clopidogrel 75 mg tablet (Plavix) 75 mg PO DAILY 05/11/16 10/21/21 tacrolimus 1 mg capsule,extended 4 mg PO QAM 09/03/18 10/21/21 release 24 hr (Astagraf XL) carvedilol 3.125 mg tablet 3.125 mg PO BID 10/08/21 10/21/21 levothyroxine 75 mcg tablet 75 mcg DAILY 10/08/21 10/21/21 prednisone 5 mg tablet 5 mg PO DAILY 10/08/21 10/21/21 levetiracetam 500 mg tablet 1,000 mg PO BID #0 tabs 10/11/21 10/21/21 mycophenolate sodium 180 mg 180 mg PO BID #0 tabs 10/11/21 10/21/21 tablet,delayed release prochlorperazine maleate 10 mg 1 tab PO TID PRN 10/21/21 10/21/21 tablet Previous Rx's Medication Instructions Recorded levetiracetam 500 mg tablet 1,000 mg PO BID #0 tabs 10/11/21 mycophenolate sodium 180 mg 180 mg PO BID #0 tabs 10/11/21 tablet,delayed release Allergies Allergy/AdvReac Type Severity Reaction Status Date / Time levofloxacin Allergy Severe Unverified 10/21/21 12:23 sevelamer [From Renvela] Allergy Severe per pcp Unverified 10/21/21 12:29 list sodium bicarbonate Allergy Severe seizures Unverified 10/21/21 12:23 lisinopril Allergy Intermediate Hives Unverified 10/21/21 12:23 amoxicillin [From Augmentin] Allergy Unverified 10/21/21 12:23 clavulanic acid Allergy Unverified 10/21/21 12:23 [From Augmentin] gabapentin AdvReac Intermediate related to Unverified 10/21/21 12:23 dialysis furosemide [From Lasix] AdvReac Nausea Unverified 10/21/21 12:23 General Stated Complaint: GenMedical MILAGROS: 2 Review of Systems All systems reviewed & are unremarkable except as noted in HPI and below Constitutional Constitutional: Denies chills, Denies excessive sweating, Reports fatigue, Denies fever(s), Reports weakness and Denies weight loss Eyes Eyes: Reports system reviewed and no additional complaints, except as documented and Denies blurry vision ENT Ears, Nose, Mouth, and Throat: Denies vertigo, Denies dizziness, Denies otalgia, Denies nasal congestion, Denies sore throat and Denies throat swelling Cardiovascular Cardiovascular: Denies chest pain, Denies syncope, Denies rapid heart rate and Denies dyspnea Respiratory Respiratory: Denies chest congestion, Denies cough, Denies pain on inspiration and Denies dyspnea Gastrointestinal Gastrointestinal: Denies abdominal pain, Denies diarrhea and Denies vomiting Genitourinary Genitourinary: Denies hematuria, Denies dysuria and Denies flank pain Musculoskeletal Musculoskeletal: Denies back pain and Denies joint swelling Integumentary/Breasts Skin/Breast: Denies lesions and Denies rash Neurologic Neurologic: Denies behavioral changes, Denies confusion, Denies vertigo, Denies dizziness, Denies syncope, Denies localized weakness and Reports weakness Psychiatric Psychiatric: Denies behavioral changes, Denies confusion and Denies depression Endocrine Endocrine: Denies excessive sweating and Reports fatigue Hematologic/Lymphatic Hematologic/Lymphatic: Denies easy bruising and Denies lymphadenopathy Allergic/Immunologic Allergic/Immunologic: Denies throat swelling PFSH All Active Problems (Updated 10/21/21 @ 13:07 by Teresa Law DO) Discharge planning issues (Acute) DVT prophylaxis (Acute) Acute dehydration (Acute) Acute kidney injury superimposed on chronic kidney disease (Acute) History of COVID-19 (Acute) Pancytopenia (Acute) SARS-CoV-2 positive (Acute) Colonoscopy - MAC (Acute 12/03/15) Medical History (Updated 10/21/21 @ 17:08 by Salma Seaman MD) Complete tear of left rotator cuff (06/24/16) Coronary artery disease Depression Gout HTN (hypertension) Hx of hyperlipidemia IgA nephropathy Obstructive sleep apnea Renal failure Seizure disorder Tubular adenoma of colon (12/23/15) Surgical History (Updated 10/21/21 @ 13:07 by Teresa Law DO) History of coronary artery stent placement History of eye surgery Hx of CABG Kidney transplant recipient Social History Smoking/Tobacco Use Status: Never Smoking risk assessment performed?: Yes Alcohol Intake: never Drug use: Never Do you feel safe at home: Yes Do you feel safe in your relationship?: Yes Exam Const General: cooperative and no acute distress Nutritional Appearance: obese morbidly obese Orientation: alert, awake and oriented x3 HENMT Head: normal to inspection Ears: hearing grossly normal bilaterally, external ears normal and TM's normal bilaterally General nose exam: external nose normal Face and sinus: normal facial exam Mouth: oral mucosae normal Teeth and gingiva: dentition normal Throat: posterior oropharynx normal Eyes General: appearance normal, both eyes and all related structures Eyelids: eyelids normal Pupils: PERRL EOM: EOM intact bilaterally Neck Neck: normal visual inspection Lymphatic: no lymphadenopathy noted Chest Chest: normal inspection of the chest Resp Effort & Inspection: normal respiratory effort and able to speak in complete sentences Auscultation: clear to auscultation bilaterally Cardio Rate: regular rate Rhythm: regular rhythm GI Inspection: normal to inspection and obesity Palpation: soft, not firm, no guarding, no hepatosplenomegaly, no masses and nontender Auscultation: normal bowel sounds Back/Spine/Pelvis Back: no CVA tenderness Skin General skin exam: no rashes or lesions noted Neuro General: patient alert and patient awake Cognition: normal cognition Speech: speech normal Gait: normal gait Motor: muscle tone normal throughout Sensory Exam: no sensory deficits noted Extrem General: normal to inspection, full ROM, capillary refill normal and no edema Psych Appearance: grossly normal Mental Status: mental status grossly normal Speech and Movement: speech and movement normal Affect: normal affect Thought Process: normal
[2021-10-21 12:44] LABS: Absolute Basophil Count 0.01 10^3/uL (0.0-0.2); Absolute Eosinophil Count 0.02 10^3/uL (0.0-0.7); Absolute Lymphocyte Count 0.95 10^3/uL (1.2-3.4); Absolute Monocyte Count 0.51 10^3/uL (0.1-0.8); Absolute Neutrophil Count 5.32 10^3/uL (1.2-6.7); Basophils % 0.1; Eosinophils % 0.3; HCT 36.2 % (40.0-50.0); HGB 11.6 g/dL (13.5-17.5); Immature Grans % 1.4; Lymphocytes % 13.7; MCH 29.8 pg (27.0-33.0); MCV 93 fL (80-95); MPV 10.1 fL (8.0-11.0); Monocytes % 7.4; Neutrophils % 77.1; Platelet Count 115 10^3/uL (130-400); RBC 3.89 10^6/uL (4.36-5.78); RDW 13.2 % (11.8-14.1); RDW-SD 45.1 fL; WBC 6.91 10^3/uL (4.4-10.8)
--- NOTE | 2021-10-21 13:00 | DI.RAD_ITS ---
Exam(s) XR PORTABLE CHEST AP EXAM: XR PORTABLE CHEST AP CLINICAL HISTORY: weakness, r/o acute disease TECHNIQUE: 2D digital imaging was performed. COMPARISON: No exams were available for comparison FINDINGS: Exam is limited by patient body habitus, portable technique and respiratory motion. LUNGS: Symmetric bilateral infiltrates may represent CHF. No pneumothorax. No visible effusion. HEART: Enlarged, unchanged. AORTA: Mildly ectatic. . IMPRESSION: Cardiomegaly plaque and bilateral infiltrates, suspect CHF. DATA REPOSITORY: RADIATION DOSE DELIVERED:
[2021-10-21 13:01] LABS: ALT 60 U/L (16-63); AST 48 U/L (15-37); Alkaline Phosphatase 93 U/L (46-116); Anion Gap 11.3 mmol/L (3-11); BUN 66 mg/dL (7-18); Bilirubin, Total 0.5 mg/dL (0.2-1.0); CO2 18.7 mmol/L (21.0-32.0); CREATININE 2.9 mg/dL (0.70-1.30); Chloride 105 mmol/L (98-107); Estimated GFR 21.88 (mL/min/1.73m2); Glucose 108 mg/dL (74-106); Potassium 5.5 mmol/L (3.5-5.1); Sodium 135 mmol/L (136-145)
--- NOTE | 2021-10-21 13:15 | RT.EKG_ITS ---
APPROVED REPORT Exam: Resting ECG Reason for Exam: hyperkalemia Patient Location: E HR:58 bpm ECG Measurements Heart Rate 58 AXIS WA 222 P -8 QRSd 162 QRS -43 QT 465 T 109 QTc 456 Conclusion Sinus bradycardia...rate< 60 Prolonged WA interval...WA >220, V-rate 50- 90 Left bundle branch block...QRSd>120, broad/notched R. Sinus. LBBB. No significant change from previous EKG. No STEMI. I have reviewed and interpreted ECG and agree with software generated interpretation.
[2021-10-21] MEDS: Normal Saline 1,000 ML 1000 ML IV (13:32)
[2021-10-21] MEDS: Hydrocortisone SOD SUC. 100 MG VIAL IVP (13:54)
[2021-10-21 14:39] LABS: Source Nasal/Nares
[2021-10-21 15:36] LABS: COVID-19 PCR POSITIVE (Negative)
[2021-10-21] MEDS: Lactated Ringers 1,000 ML 150 ML IV (15:48)
[2021-10-21 15:52] LABS: Lab Add On Test DONE
[2021-10-21 16:15] LABS: Creatine Kinase 27 U/L (39-308)
--- NOTE | 2021-10-21 16:57 | W.PM.HP.N ---
Date of service: 10/21/21 Time of Service: 16:57 Assessment and Plan Assessment and plan (1) Acute kidney injury superimposed on chronic kidney disease: Status: Acute Assessment and plan: In setting of COVID-19 infection, as well as adrenal insufficiency, dehydration. R/o urinary retention with bladder scans. Treat with remdesivir. Hold Astagraf XL. Continue low dose mycophenolate. IVF. Will discuss with outpatient device sales consultant. (2) Acute dehydration: Status: Acute Assessment and plan: Treat with IVF. MOnitor for diarrhea. Monitor I/O's and daily weights. (3) SARS-CoV-2 positive: Status: Acute Assessment and plan: I have requested cycling time information on this patient. Meanwhile, will treat empirically with remdesivir. (4) Kidney transplant recipient: Assessment and plan: Hold Astagraf, per [facility]. Continue mycophenolate (low dose). Stress dose steroids. (5) DVT prophylaxis: Status: Acute Assessment and plan: SC heparin (6) Discharge planning issues: Status: Acute Assessment and plan: Full code History of Present Illness History of Present Illness Chief Complaint: Sent to the ED by PCP for rehydration Narrative: Mr Rangel is a 65 year old male with PMHx of renal transplant (followed by Dr Mcintyre of [facility]), on triple immunosuppressive therapy with prednisone, mycophenolate, and long acting tacrolium, as well as h/o CAD s/p CABG, hypertension, seizure d/o, who was a patient on our service from 10/10/21 until 10/11/21 for SOLOMON on CKD in setting of COVID-19 Baseline Cr is 1.5, who was seen in his PCP's office today, was hypotensive and appeared dehydrated, and was sent to the ED. Here, his BP was 99/49. He was given IVF and started on empiric stress dose steroids. He remains positive for COVID-19. During his last stay with us, he received 1 dose of remdesivir, but was discharged without completing a 3 day course. The patient is agreeable to go back to remdesivir. He states his appetite has been poor, so he hasn't been eating and drinking as much, and he has felt generally weak. He denies dizziness, chest pain, shortness of breath. States he coughs about once a day, nonproductive. Denies nausea; no diarrhea since leaving the hospital. He is full code. Review of Systems All systems reviewed & are unremarkable except as noted in HPI and below PFSH All Active Problems (Updated 10/21/21 @ 13:07 by Teresa Law DO) Discharge planning issues (Acute) DVT prophylaxis (Acute) Acute dehydration (Acute) Acute kidney injury superimposed on chronic kidney disease (Acute) History of COVID-19 (Acute) Pancytopenia (Acute) SARS-CoV-2 positive (Acute) Colonoscopy - MAC (Acute 12/03/15) Medical History (Updated 10/21/21 @ 17:08 by Salma Seaman MD) Complete tear of left rotator cuff (06/24/16) Coronary artery disease Depression Gout HTN (hypertension) Hx of hyperlipidemia IgA nephropathy Obstructive sleep apnea Renal failure Seizure disorder Tubular adenoma of colon (12/23/15) Surgical History (Updated 10/21/21 @ 13:07 by Teresa Law DO) History of coronary artery stent placement History of eye surgery Hx of CABG Kidney transplant recipient Social History Smoking/Tobacco Use Status: Never Smoking risk assessment performed?: Yes Alcohol Intake: never Drug use: Never Do you feel safe at home: Yes Do you feel safe in your relationship?: Yes Meds Allergies and Home Medications Allergies Allergy/AdvReac Type Severity Reaction Status Date / Time levofloxacin Allergy Severe Unverified 10/21/21 12:23 sevelamer [From Renvela] Allergy Severe per pcp Unverified 10/21/21 12:29 list sodium bicarbonate Allergy Severe seizures Unverified 10/21/21 12:23 lisinopril Allergy Intermediate Hives Unverified 10/21/21 12:23 amoxicillin [From Augmentin] Allergy Unverified 10/21/21 12:23 clavulanic acid Allergy Unverified 10/21/21 12:23 [From Augmentin] gabapentin AdvReac Intermediate related to Unverified 10/21/21 12:23 dialysis furosemide [From Lasix] AdvReac Nausea Unverified 10/21/21 12:23 Home Medications Medication Instructions Recorded Confirmed Type citalopram 40 mg tablet 40 mg PO DAILY 08/18/12 10/21/21 History calcitriol 0.25 mcg capsule 0.25 mcg PO DAILY 02/25/13 10/08/21 History atorvastatin 40 mg tablet (Lipitor) 40 mg PO HS 05/26/14 10/21/21 History clopidogrel 75 mg tablet (Plavix) 75 mg PO DAILY 05/11/16 10/21/21 History tacrolimus 1 mg capsule,extended 4 mg PO QAM 09/03/18 10/21/21 History release 24 hr (Astagraf XL) carvedilol 3.125 mg tablet 3.125 mg PO BID 10/08/21 10/21/21 History levothyroxine 75 mcg tablet 75 mcg DAILY 10/08/21 10/21/21 History prednisone 5 mg tablet 5 mg PO DAILY 10/08/21 10/21/21 History levetiracetam 500 mg tablet 1,000 mg PO BID #0 tabs 10/11/21 10/21/21 Rx mycophenolate sodium 180 mg 180 mg PO BID #0 tabs 10/11/21 10/21/21 Rx tablet,delayed release prochlorperazine maleate 10 mg 1 tab PO TID PRN 10/21/21 10/21/21 History tablet Exam Narrative Exam Narrative: General: Very pleasant middle-aged male who is comfortable in bed, A&Ox3, NAD Neurological: A&Ox3, no focal deficits Psychiatric: appropriate speech pattern/content Skin: Visible skin dry, intact HEENT: Atraumatic, normocephalic, EOMI, dry MM, clear oropharynx, no submandibular or cervical lymphadenopathy, no goiter or JVD Cardiovascular: RRR, +EUNICE Lungs: CTAB/diminished breath sounds Gastrointestinal: soft, nontender, nondistended Genitourinary: deferred Extremities: no edema BLEs, +1 pedal pulses B Results Imaging Additional studies: CXR: Cardiomegaly plaque and bilateral infiltrates, suspect CHF. EKG: HR 57, LBBB Labs Result diagrams: 10/21/21 11:40 10/21/21 11:40 Labs: Laboratory Results - last 24 hr 10/21/21 10/21/21 10/21/21 11:40 11:40 11:40 WBC 6.91 RBC 3.89 L Hgb 11.6 L Hct 36.2 L MCV 93 MCH 29.8 MCHC 32.0 RDW 13.2 Plt Count 115 L MPV 10.1 Immature Gran % 1.4 Neutrophils % 77.1 Lymphocytes % 13.7 Monocytes % 7.4 Eosinophils % 0.3 Basophils % 0.1 Nucleated RBC % 0.0 Absolute Neutrophils 5.32 Absolute Lymphocytes 0.95 L Absolute Monocytes 0.51 Absolute Eosinophils 0.02 Absolute Basophils 0.01 Sodium 135 L Potassium 5.5 H Chloride 105 Carbon Dioxide 18.7 L Anion Gap 11.3 H BUN 66 H Creatinine 2.9 H Estimated GFR/1.73 m2 21.88 Glucose 108 H Calcium 10.0 Total Bilirubin 0.5 AST 48 H ALT 60 Alkaline Phosphatase 93 Creatine Kinase 27 L Total Protein 7.0 Albumin 3.0 L COVID-19 Source SARS-CoV-2 (PCR) Add-On Test Request 10/21/21 10/21/21 13:36 14:30 WBC RBC Hgb Hct MCV MCH MCHC RDW Plt Count MPV Immature Gran % Neutrophils % Lymphocytes % Monocytes % Eosinophils % Basophils % Nucleated RBC % Absolute Neutrophils Absolute Lymphocytes Absolute Monocytes Absolute Eosinophils Absolute Basophils Sodium Potassium Chloride Carbon Dioxide Anion Gap BUN Creatinine Estimated GFR/1.73 m2 Glucose Calcium Total Bilirubin AST ALT Alkaline Phosphatase Creatine Kinase Total Protein Albumin COVID-19 Source Nasal/Nares SARS-CoV-2 (PCR) POSITIVE A* Add-On Test Request DONE Last Vital Signs Temp 35.6 C L 10/21/21 15:22 Pulse 58 L 10/21/21 15:22 Resp 18 10/21/21 15:22 BP 135/61 10/21/21 15:22 Pulse Ox 95 10/21/21 15:22
[2021-10-21] MEDS: REMDESIVIR 200 MG in Normal Saline 250 ML 250 MG IVPB (18:00)
[2021-10-21] MEDS: Normal Saline Flush 10 ML SYR IVP (18:02)
[2021-10-21] MEDS: Acetaminophen 325 MG TAB PO (20:10)
[2021-10-21] MEDS: levETIRAcetam 500 MG TAB 1000 MG PO (20:11)
[2021-10-21] MEDS: Heparin 5,000 UNITS/ML VIAL 5000 UNITS SC (20:12)
[2021-10-21] MEDS: Hydrocortisone SOD SUC. 100 MG VIAL 50 MG IVP (22:06)
[2021-10-21 22:27] LABS: Bilirubin Small (Negative); Blood Negative (Negative); Clarity Clear (Clear); Glucose Negative (Negative); Ketones Negative (Negative); Leukocyte Esterase Negative (Negative); Nitrite Negative (Negative); Specific Gravity >= 1.030 (1.005-1.025); Urobilinogen 0.2 EU/dL (Up TO 0.2); pH 5.5 (5-8)
[2021-10-22] MEDS: Lactated Ringers 1,000 ML 150 ML IV ×3 (02:29→17:07)
[2021-10-22 02:46] VITALS: BP 126/67; PULSE 69; RESP 16; TEMP 36.5; O2SAT 91
[2021-10-22] MEDS: Hydrocortisone SOD SUC. 100 MG VIAL 50 MG IVP ×2 (05:24→14:01)
[2021-10-22] MEDS: Levothyroxine 75 MCG TAB PO (05:24)
[2021-10-22 05:27] VITALS: BP 147/67; PULSE 54; RESP 16; TEMP 36.6; O2SAT 92
[2021-10-22 05:52] LABS: Abs Immature Grans 0.09 10^3/uL (0.0-0.06); Absolute Basophil Count 0.01 10^3/uL (0.0-0.2); Absolute Lymphocyte Count 0.79 10^3/uL (1.2-3.4); Absolute Monocyte Count 0.23 10^3/uL (0.1-0.8); Absolute Neutrophil Count 3.88 10^3/uL (1.2-6.7); Basophils % 0.2; HCT 30.3 % (40.0-50.0); HGB 9.9 g/dL (13.5-17.5); Immature Grans % 1.8; Lymphocytes % 15.8; MCH 30.1 pg (27.0-33.0); MCHC 32.7 % (32.0-36.0); MCV 92 fL (80-95); Monocytes % 4.6; Neutrophils % 77.6; Platelet Count 108 10^3/uL (130-400); RBC 3.29 10^6/uL (4.36-5.78); RDW 13.1 % (11.8-14.1); RDW-SD 44.2 fL
[2021-10-22 05:53] LABS: INR 1.1 (0.9-1.1); Prothrombin Time 10.9 sec (9.3-11.0)
[2021-10-22 06:01] LABS: ALT 52 U/L (16-63); AST 44 U/L (15-37); Albumin 2.6 g/dL (3.4-5.0); Alkaline Phosphatase 76 U/L (46-116); Anion Gap 9.3 mmol/L (3-11); BUN 71 mg/dL (7-18); Bilirubin, Direct 0.1 mg/dL (0.0-0.2); Bilirubin, Total 0.2 mg/dL (0.2-1.0); CO2 18.7 mmol/L (21.0-32.0); Calcium 9.3 mg/dL (8.5-10.1); Chloride 107 mmol/L (98-107); Estimated GFR 21.04 (mL/min/1.73m2); Glucose 137 mg/dL (74-106); Magnesium 1.6 mg/dL (1.8-2.4); Potassium 5.8 mmol/L (3.5-5.1); Sodium 135 mmol/L (136-145); Total Protein 6.1 g/dL (6.4-8.2)
[2021-10-22 07:00] LABS: Ferritin > 2000 ng/mL (26-388)
[2021-10-22] MEDS: Citalopram 20 MG TAB 40 MG PO (08:25)
[2021-10-22] MEDS: Clopidogrel 75 MG TAB PO (08:25)
[2021-10-22] MEDS: predniSONE 5 MG TAB PO (08:25)
[2021-10-22] MEDS: levETIRAcetam 500 MG TAB 1000 MG PO ×2 (08:25→20:49)
[2021-10-22] MEDS: Heparin 5,000 UNITS/ML VIAL 5000 UNITS SC ×2 (08:26→20:49)
[2021-10-22 08:52] VITALS: BP 135/79; PULSE 54; RESP 18; TEMP 36.9; O2SAT 92
--- NOTE | 2021-10-22 10:03 | PT.INIE ---
PT Notes Visit Reasons: SOLOMON in a Renal Transplant PT,Recent Covid-19 Inpatient Physical Therapy Evaluation Date: 10/22/2021 Referring Doctor: Salma Seaman MD PT Orders: PT CONSULT: Limited ability Precautions: Fall risk Patient Profile/Admitting Diagnosis: 65-year-old male with COVID-19 recently admitted with dehydration and hypotension PMHX: All Active Problems?(Updated 10/21/21 @ 13:07 by Teresa Law DO) Discharge planning issues (Acute) DVT prophylaxis (Acute) Acute dehydration (Acute) Acute kidney injury superimposed on chronic kidney disease (Acute) History of COVID-19 (Acute) Pancytopenia (Acute) SARS-CoV-2 positive (Acute) Colonoscopy - MAC (Acute 12/03/15) Medical History?(Updated 10/21/21 @ 17:08 by Salma Seaman MD) Complete tear of left rotator cuff (06/24/16) Coronary artery disease Depression Gout HTN (hypertension) Hx of hyperlipidemia IgA nephropathy Obstructive sleep apnea Renal failure Seizure disorder Tubular adenoma of colon (12/23/15) Surgical History?(Updated 10/21/21 @ 13:07 by Teresa Law DO) History of coronary artery stent placement History of eye surgery Hx of CABG Kidney transplant recipient Social History/Home Situation: , 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 His bedroom and bathroom on the first floor, and he has a walk-in shower with a lower lip, flexible shower hose and grab bars Current Functional Limitations: Independent with all ADLs, mows his own lawn with a garden tractor and a push mower Equipment Owned/DME: Cane at home Subjective: Quiet but cooperative with complaints of general fatigue, although feeling better since being admitted to the hospital Objective: General Observation: No pain behavior noted, resting comfortably in bed Mental Status: Alert and oriented x3 Pain: No complaints of pain offered Vital Signs: His pulse was 57 bpm and O2 sat was 91% after ambulation ROM: Has pain-free functional range of motion throughout his articular structures. Negative effusion, erythema or warmth Strength: Is full volutionall movements throughout and strength is generally rated as 5/5 Neuro: KJ's AJ's are +1 and symmetrical, sensations intact to light touch and proprioception, has full motor function Bed Mobility/Transfers: Independent with assuming the supine to sitting to standing positions and vice versa but with some mild effort Gait: Ambulated in the room x2 while holding onto his IV pole and contact guarding provided. His gait was stable. He is able to walk on his heels and toes but with contact-guard. Balance: Galvan balance test was performed and he scored 47/56. Score 45 or less indicates a fall risk Static Sitting: Stable Dynamic Sitting: Stable Static Standing: Stable Dynamic Standing: Fair Special Tests: Mobility Limitations Standardized Measure [facility] AM-PAC 6 clicks Basic Mobility Inpatient Short Form: Raw Score: 18 standardized Score: 3.20 CMS Score: 46.58% Informed Consent/Education: Patient instructed in purpose of PT consult and plan of care. Assessment: Patient is a 65year old male referred to physical therapy services with the diagnosis of dehydration and hypotension. Patient presents with clinical signs and symptoms consistent with this diagnosis, as demonstrated by the following impairment level findings: Generalized weakness and fatigue. Impairments are contributing to the following functional limitations: Some mild effort with bed mobility activities and short distance ambulation capabilities compared to COVID Patient is assessed as a moderate 9716 2 complexity, based on the following: History: See comorbidities and social history Examination: See above for functional limitations and impairments Presentation: Evolving Decision Making: Moderate complexity based on his clinical finding Goals: Goals X1 week 1. Supine-Sit independent with minimal effort 2. Sit-Supine independent with minimal effort 3. Sit-Stand independent with minimal effort 4. Stand-Sit independent with minimal effort 5. Bed-Chair independent with minimal effort 6. Chair-Bed independent with minimal effort 7. Gait ambulating without assistive device or supervision for greater than 200 feet Plan of Care/Treatment Plan: 1-2x/day, 7 days/week x 1 week. Plan of care has been reviewed with the CLERICAL AND ADMINISTRATIVE WORKERS providing the service under Physical Therapy direction. Initiate Physical Therapy intervention for strengthening, bed mobility, transfers, gait, stairs, balance training, use of assistive device. DISCHARGE RECOMMENDATIONS: Home with no services TREATMENT CODE/TIME: 9716 2/40 minutes Disclaimer: This note was created using [employer] voice recognition software. It was reviewed for major content. However, there may be multiple small discrepancies and errors due to the voice recognition aspects of the software.
[2021-10-22] MEDS: Sodium Zirconium Cyclosilicate 10 GM PKT PO ×3 (10:40→20:49)
[2021-10-22] MEDS: MAGNESIUM SULFATE 1 GM/100 ML BAG IVPB (10:42)
--- NOTE | 2021-10-22 11:25 | INITIAL_ITS ---
- If Service Date Differs Date of service: 10/22/21 Time of Service: 11:25 Care Management Initial Assess REASON FOR HOSPITALIZATION:: SOLOMON in a renal transplant pt, recent Covid 19 PAST MEDICAL HISTORY/PAST SURGICAL HISTORY:: All Active Problems. Discharge planning issues (Acute). DVT prophylaxis (Acute). Acute dehydration (Acute). Acute kidney injury superimposed on chronic kidney disease (Acute). History of COVID-19 (Acute). Pancytopenia (Acute). SARS-CoV-2 positive (Acute). Colonoscopy - MAC (Acute 12/03/15). Medical History. Complete tear of left rotator cuff (06/24/16). Coronary artery disease. Depression. Gout. HTN (hypertension). Hx of hyperlipidemia. IgA nephropathy. Obstructive sleep apnea. Renal failure. Seizure disorder. Tubular adenoma of colon (12/23/15). Surgical History. History of coronary artery stent placement. History of eye surgery. Hx of CABG. Kidney transplant recipient PREVIOUS FUNCTIONAL STATUS/SOCIAL/FAMILY SUPPORTS:: Resides in [facility] with , Heather. Daughter, Mary resides in [facility] as well. CURRENT FUNCTIONAL STATUS:: Guevara is on Covid precautions, therefore CM did not meet with him in person today. Per report, MD is communicating with [facility], who is interested in accepting him in transfer, as he is their transplant patient. If he is accepted, he will transfer as soon as a bed becomes available. RN oil field pipeline supervisor will arrange EMS transportation. CM will continue to follow. ADVANCE DIRECTIVES:: Living will/DPOA on file, Heather Rangel listed as agent. Has patient been provided with info about the portal/API?: Yes Did the patient sign up for the portal?: No CODE STATUS:: Full Code INSURANCE COVERAGE / FINANCIAL ISSUES:: [facility]/ [employer] (supplement Plan G) CURRENT HOME/COMMUNITY SERVICES/EQUIPMENT:: No services or equipment. PRIMARY CARE PHYSICIAN:: Shahzad Domingo POTENTIAL DISCHARGE NEEDS:: Evaluations for further needs, follow up appointments. PATIENT/FAMILY EDUCATION NEEDS:: Review discharge instructions and limitations, discussion of self care needs including ask me three. ANTICIPATED BARRIERS TO DISCHARGE:: None identified. TRANSPORTATION:: Via private vehicle with his . PLAN:: Guevara will return home when medically cleared vs transfer to [facility]. He will be driven home via private vehicle by family, if discharged home. If transferred, he will transport via EMS, coordinated by RN Regulatory Submissions Associate. He will follow up with his PCP and discharge plan of care. CM will continue to follow.
[2021-10-22 13:53] LABS: Tacrolimus >30.0 ng/mL (See Note)
[2021-10-22] MEDS: Normal Saline Flush 10 ML SYR IVP (14:03)
[2021-10-22 14:14] VITALS: BP 133/65; PULSE 63; RESP 18; TEMP 36.9; O2SAT 92
[2021-10-22 14:35] LABS: Anion Gap 8.7 mmol/L (3-11); BUN 65 mg/dL (7-18); CO2 20.3 mmol/L (21.0-32.0); CREATININE 2.7 mg/dL (0.70-1.30); Chloride 107 mmol/L (98-107); Estimated GFR 23.76 (mL/min/1.73m2); Glucose 180 mg/dL (74-106); Sodium 136 mmol/L (136-145)
[2021-10-22] MEDS: REMDESIVIR 100 MG in Normal Saline 250 ML 250 MG IVPB (17:25)
--- NOTE | 2021-10-22 18:02 | W.PM.PROGNOT ---
Date of Service Date of service: 10/22/21 Time of Service: 18:02 Assessment and Plan Assessment and plan (1) Acute kidney injury superimposed on chronic kidney disease: Status: Acute Assessment and plan: In setting of COVID-19 infection, as well as adrenal insufficiency, dehydration. No evidence of urinary retention by bladder scans. Marginal response to IVF- d/c. Continue remdesivir. Hold Astagraf XL - per Dr Mcintyre, his prograf level was actually 19 (supratherapeutic). Continue low dose mycophenolate. (2) Acute dehydration: Status: Acute Assessment and plan: Treat with IVF. MOnitor for diarrhea- if recurs, check for C. Diff. Does have a h/o C.Diff. Monitor I/O's and daily weights. (3) SARS-CoV-2 positive: Status: Acute Assessment and plan: Continue remdesivir, IS/acapella. (4) Kidney transplant recipient: Assessment and plan: Hold Astagraf, per [facility]. Continue mycophenolate (low dose). Stress dose steroids. (5) DVT prophylaxis: Status: Acute Assessment and plan: SC heparin (6) Discharge planning issues: Status: Acute Assessment and plan: Full code Subjective Subjective Interval history since last seen: Mr Rangel states that he is feeling better today. He did have diarrhea. No SOB. Denies CP, nausea, vomiting. Eating/drinking. Case discussed with [facility] - Dr Mcintyre feels that the patient would benefit from transfer to [facility]. The patient is accepted in transfer to [facility] By Dr Rosy Flores, pending bed availability - sometime this weekened. Exam Narrative Exam Narrative: General: Very pleasant middle-aged male who is comfortable in bed, A&Ox3, NAD HEENT: EOMI, MMM Cardiovascular: RRR, +EUNICE Lungs: CTAB Gastrointestinal: soft, nontender, nondistended Extremities: no edema BLEs, +1 pedal pulses B Objective Last Vital Signs Temp 36.9 C 10/22/21 14:14 Pulse 63 10/22/21 14:14 Resp 18 10/22/21 14:14 BP 133/65 10/22/21 14:14 Pulse Ox 92 10/22/21 14:14 Laboratory Results - last 24 hr 10/21/21 10/21/21 10/22/21 11:40 22:10 05:20 WBC RBC Hgb Hct MCV MCH MCHC RDW Plt Count MPV Immature Gran % Neutrophils % Lymphocytes % Monocytes % Eosinophils % Basophils % Nucleated RBC % Absolute Neutrophils Absolute Lymphocytes Absolute Monocytes Absolute Eosinophils Absolute Basophils PT INR Sodium 135 L Potassium 5.8 H Chloride 107 Carbon Dioxide 18.7 L Anion Gap 9.3 BUN 71 H Creatinine 3.0 H Estimated GFR/1.73 m2 21.04 Glucose 137 H Calcium 9.3 Magnesium 1.6 L Ferritin > 2000 H Total Bilirubin 0.2 Conjugated Bilirubin 0.1 AST 44 H ALT 52 Alkaline Phosphatase 76 C-Reactive Protein 6.30 H Total Protein 6.1 L Albumin 2.6 L Urine Color Yellow Urine Clarity Clear Urine pH 5.5 Ur Specific [place] >= 1.030 H Urine Protein Negative Urine Ketones Negative Urine Blood Negative Urine Nitrite Negative Urine Bilirubin Small H Urine Urobilinogen 0.2 Ur Leukocyte Esterase Negative Urine Glucose Negative Tacrolimus >30.0 10/22/21 10/22/21 10/22/21 05:20 05:20 14:00 WBC 5.00 RBC 3.29 L Hgb 9.9 L Hct 30.3 L MCV 92 MCH 30.1 MCHC 32.7 D RDW 13.1 Plt Count 108 L MPV 10.0 Immature Gran % 1.8 Neutrophils % 77.6 Lymphocytes % 15.8 Monocytes % 4.6 Eosinophils % 0.0 Basophils % 0.2 Nucleated RBC % 0.0 Absolute Neutrophils 3.88 Absolute Lymphocytes 0.79 L Absolute Monocytes 0.23 Absolute Eosinophils 0.00 Absolute Basophils 0.01 PT 10.9 INR 1.1 Sodium 136 Potassium 5.0 Chloride 107 Carbon Dioxide 20.3 L Anion Gap 8.7 BUN 65 H Creatinine 2.7 H Estimated GFR/1.73 m2 23.76 Glucose 180 H Calcium 9.0 Magnesium Ferritin Total Bilirubin Conjugated Bilirubin AST ALT Alkaline Phosphatase C-Reactive Protein Total Protein Albumin Urine Color Urine Clarity Urine pH Ur Specific [place] Urine Protein Urine Ketones Urine Blood Urine Nitrite Urine Bilirubin Urine Urobilinogen Ur Leukocyte Esterase Urine Glucose Tacrolimus
[2021-10-22] MEDS: Acetaminophen 325 MG TAB PO (20:49)
[2021-10-22 21:20] VITALS: BP 131/64; PULSE 57; RESP 14; TEMP 36.4; O2SAT 91
[2021-10-22] MEDS: Hydrocortisone SOD SUC. 100 MG VIAL 25 MG IVP (23:19)
[2021-10-23 02:38] VITALS: BP 129/51; PULSE 54; RESP 14; TEMP 36.6; O2SAT 92
[2021-10-23] MEDS: Hydrocortisone SOD SUC. 100 MG VIAL 25 MG IVP ×3 (06:20→20:56)
[2021-10-23] MEDS: Sodium Zirconium Cyclosilicate 10 GM PKT PO (06:20)
[2021-10-23] MEDS: Levothyroxine 75 MCG TAB PO (06:21)
[2021-10-23 06:29] VITALS: BP 136/64; PULSE 57; RESP 14; TEMP 36.3; O2SAT 93
[2021-10-23 06:49] LABS: Abs Immature Grans 0.16 10^3/uL (0.0-0.06); Absolute Basophil Count 0.01 10^3/uL (0.0-0.2); Absolute Eosinophil Count 0.01 10^3/uL (0.0-0.7); Absolute Lymphocyte Count 0.84 10^3/uL (1.2-3.4); Absolute Monocyte Count 0.36 10^3/uL (0.1-0.8); Absolute Neutrophil Count 3.63 10^3/uL (1.2-6.7); Basophils % 0.2; Eosinophils % 0.2; HCT 29.5 % (40.0-50.0); HGB 9.6 g/dL (13.5-17.5); Immature Grans % 3.2; Lymphocytes % 16.8; MCH 29.9 pg (27.0-33.0); MCHC 32.5 % (32.0-36.0); MCV 92 fL (80-95); MPV 10.1 fL (8.0-11.0); Monocytes % 7.2; Neutrophils % 72.4; Platelet Count 107 10^3/uL (130-400); RBC 3.21 10^6/uL (4.36-5.78); RDW 13.3 % (11.8-14.1); RDW-SD 44.6 fL; WBC 5.01 10^3/uL (4.4-10.8)
[2021-10-23 07:07] LABS: Anion Gap 10.2 mmol/L (3-11); BUN 57 mg/dL (7-18); C-Reactive Protein 3.61 mg/dL (0.0-0.3); CO2 20.8 mmol/L (21.0-32.0); CREATININE 2.6 mg/dL (0.70-1.30); Calcium 9.3 mg/dL (8.5-10.1); Chloride 110 mmol/L (98-107); Estimated GFR 24.82 (mL/min/1.73m2); Glucose 153 mg/dL (74-106); Magnesium 1.7 mg/dL (1.8-2.4); Potassium 4.6 mmol/L (3.5-5.1); Sodium 141 mmol/L (136-145)
[2021-10-23] MEDS: levETIRAcetam 500 MG TAB 1000 MG PO ×2 (08:00→20:57)
[2021-10-23] MEDS: Citalopram 20 MG TAB 40 MG PO (08:18)
[2021-10-23] MEDS: predniSONE 5 MG TAB PO (08:18)
[2021-10-23] MEDS: Clopidogrel 75 MG TAB PO (08:18)
[2021-10-23] MEDS: Normal Saline Flush 10 ML SYR IVP ×2 (08:18→14:27)
[2021-10-23] MEDS: Heparin 5,000 UNITS/ML VIAL 5000 UNITS SC ×2 (08:19→20:56)
--- NOTE | 2021-10-23 11:22 | PT.INTREAT ---
PT Notes Visit Reasons: SOLOMON in a Renal Transplant PT,Recent Covid-19 Inpatient Physical Therapy Treatment Note [facility] Date: 10/23/21 PRECAUTIONS:Covid Positive SUBJECTIVE: Pt reports that he is feeling better and would like to know if he can go home or not. OBJECTIVE: Sit-stand: SBA Stand-sit: SBA GAIT Assistive Device: No device Weight bearing: full Assist: CGA/SBA Distance: From the bed to the door and back x 3 with a seated rest each time due to SOB. THEREX: Pt ocmpleted UE rowing x 10, horz abd x 10, shoulder flexion x 10, sit to stands x 5, standing abd x 5 each but c/o back pain and had to sit, LAQ x 10, marching x 10, seated hip abd x 10, and HR x 10. ASSESSMENT: Pt tolerated tdaoy's session fairly well. PT did require seated rest due to SOB and slight faitgue but over all seems to be feelign better. PLAN: Cont as per PT POC. TREATMENT CODE/TIME: 10:45-11:15 (30) [place]
[2021-10-23 14:22] VITALS: BP 145/71; PULSE 59; RESP 18; TEMP 36.9; O2SAT 92
[2021-10-23] MEDS: MAGNESIUM SULFATE 1 GM/100 ML BAG IVPB (14:27)
[2021-10-23] MEDS: REMDESIVIR 100 MG in Normal Saline 250 ML 250 MG IVPB (17:10)
--- NOTE | 2021-10-23 18:01 | W.PM.PROGNOT ---
Date of Service Date of service: 10/23/21 Time of Service: 18:02 Assessment and Plan Assessment and plan (1) Acute kidney injury superimposed on chronic kidney disease: Status: Acute Assessment and plan: In setting of COVID-19 infection, as well as adrenal insufficiency, dehydration. No evidence of urinary retention by bladder scans. Cr is a bit better today. Off of IVF since yesterday. Since the amount of diarrhea was scant, will not restart IVF. Dr Mcintyre does feel they should be restarted if it's true diarrhea - will monitor. Continue remdesivir. Hold Astagraf XL - per Dr Mcintyre, his prograf level was actually 19 (supratherapeutic) prior to admission. Continue low dose mycophenolate. (2) Acute dehydration: Status: Resolved Assessment and plan: Off of IVF. Tolerating PO liquids. MOnitor for diarrhea- if recurs, check for C. Diff and resume IVF. Monitor I/O's and daily weights. (3) SARS-CoV-2 positive: Status: Acute Assessment and plan: Continue remdesivir, IS/acapella. (4) Kidney transplant recipient: Assessment and plan: Hold Astagraf, per [facility]. Continue mycophenolate (low dose). Stress dose steroids are being tapered. (5) DVT prophylaxis: Status: Acute Assessment and plan: SC heparin (6) Discharge planning issues: Status: Acute Assessment and plan: Full code Anticipate transfer to [facility]. Subjective Subjective Interval history since last seen: Mr Rangel states he is feeling well. He denies cough. States he had a tiny bit of diarrhea today. Denies dizziness, chest pain, shortness of breath, nausea. Has been working with an incentive spirometer. Even though his Cr is a little better today (2.6), Dr Mcintyre feels the patient should still go to [facility]. The patient is agreeable to this as well. Exam Narrative Exam Narrative: General: Very pleasant middle-aged male who is comfortable in bed, A&Ox3, NAD HEENT: EOMI, MMM Cardiovascular: RRR, +EUNICE Lungs: CTAB Gastrointestinal: soft, nontender, nondistended Extremities: no edema BLEs, +1 pedal pulses B Objective Last Vital Signs Temp 36.9 C 10/23/21 14:22 Pulse 59 L 10/23/21 14:22 Resp 18 10/23/21 14:22 BP 145/71 H 10/23/21 14:22 Pulse Ox 92 10/23/21 14:22 Laboratory Results - last 24 hr 10/23/21 10/23/21 06:20 06:20 WBC 5.01 RBC 3.21 L Hgb 9.6 L Hct 29.5 L MCV 92 MCH 29.9 MCHC 32.5 RDW 13.3 Plt Count 107 L MPV 10.1 Immature Gran % 3.2 Neutrophils % 72.4 Lymphocytes % 16.8 Monocytes % 7.2 Eosinophils % 0.2 Basophils % 0.2 Nucleated RBC % 0.0 Absolute Neutrophils 3.63 Absolute Lymphocytes 0.84 L Absolute Monocytes 0.36 Absolute Eosinophils 0.01 Absolute Basophils 0.01 Sodium 141 Potassium 4.6 Chloride 110 H Carbon Dioxide 20.8 L Anion Gap 10.2 BUN 57 H Creatinine 2.6 H Estimated GFR/1.73 m2 24.82 Glucose 153 H Calcium 9.3 Magnesium 1.7 L C-Reactive Protein 3.61 H
[2021-10-23 20:53] VITALS: BP 138/71; PULSE 56; RESP 14; TEMP 36.9; O2SAT 91
[2021-10-24 06:01] VITALS: BP 129/64; PULSE 50; RESP 16; TEMP 36.9; O2SAT 92
[2021-10-24] MEDS: Levothyroxine 75 MCG TAB PO (06:04)
[2021-10-24 07:12] LABS: HCT 30.2 % (40.0-50.0); HGB 9.7 g/dL (13.5-17.5); MCH 29.5 pg (27.0-33.0); MCHC 32.1 % (32.0-36.0); MCV 92 fL (80-95); MPV 9.9 fL (8.0-11.0); Platelet Count 106 10^3/uL (130-400); RBC 3.29 10^6/uL (4.36-5.78); RDW 13.2 % (11.8-14.1); RDW-SD 44.6 fL; WBC 4.61 10^3/uL (4.4-10.8)
[2021-10-24 07:14] LABS: Anion Gap 6.8 mmol/L (3-11); BUN 44 mg/dL (7-18); CO2 25.2 mmol/L (21.0-32.0); Calcium 9.2 mg/dL (8.5-10.1); Chloride 109 mmol/L (98-107); Glucose 107 mg/dL (74-106); Magnesium 1.7 mg/dL (1.8-2.4); Potassium 4.2 mmol/L (3.5-5.1); Sodium 141 mmol/L (136-145)
[2021-10-24] MEDS: predniSONE 5 MG TAB PO (08:04)
[2021-10-24] MEDS: levETIRAcetam 500 MG TAB 1000 MG PO ×2 (08:04→21:45)
[2021-10-24] MEDS: Hydrocortisone SOD SUC. 100 MG VIAL 25 MG IVP (08:05)
[2021-10-24] MEDS: Citalopram 20 MG TAB 40 MG PO (08:05)
[2021-10-24] MEDS: Clopidogrel 75 MG TAB PO (08:05)
[2021-10-24] MEDS: Normal Saline Flush 10 ML SYR IVP ×3 (08:05→15:45)
[2021-10-24] MEDS: Heparin 5,000 UNITS/ML VIAL 5000 UNITS SC ×2 (08:06→21:45)
--- NOTE | 2021-10-24 09:53 | PT.INTREAT ---
PT Notes Visit Reasons: SOLOMON in a Renal Transplant PT,Recent Covid-19 Inpatient Physical Therapy Treatment Note [facility] Date: 10/24/21 PRECAUTIONS:COVID Positive SUBJECTIVE: Pt reports that he is tired today and not going to be able to do as much today with PT. OBJECTIVE: Sit-stand: SBA Stand-sit: SBA GAIT Assistive Device: No AD Weight bearing: Full Assist: SBA Distance: PT did not feel up to walking but did agree to hold on the the wall and marching in place to fatigue approx 1 min. THEREX: Seated UE: shoulder flex x 10, abd x 10, rowing x 10, CW x 10, Seated LE: LAQ x 20, abd x 15, marching x 20, and HR/TR x 20. ASSESSMENT: Pt was more fatigued today and not able to tolerate as much during his session today compared to yesterday. He had no SOB during his session. PLAN: Cont as per PT POC. TREATMENT CODE/TIME: 9:30-9:50 (20) TP
[2021-10-24] MEDS: MAGNESIUM SULFATE 1 GM/100 ML BAG IVPB (10:34)
[2021-10-24 12:35] VITALS: BP 139/71; PULSE 55; RESP 18; TEMP 36.4; O2SAT 92
--- NOTE | 2021-10-24 16:53 | PGE_ITS ---
Date of Service Date of service: 10/24/21 Time of Service: 16:53 Assessment and Plan Assessment and plan (1) Acute kidney injury superimposed on chronic kidney disease: Status: Acute Assessment and plan: In setting of tacrolimus toxicity (level >30), COVID-19 infection, as well as adrenal insufficiency, dehydration. No evidence of urinary retention by bladder scans. Cr is down to 2.0. Off of IVF - no diarrhea. Continue remdesivir. We have been holding Astagraf. Continue low dose mycophenolate. Await transfer to [facility]. (2) Tacrolimus-induced nephrotoxicity: Status: Acute Assessment and plan: As above (3) Acute dehydration: Status: Resolved Assessment and plan: Off of IVF. Tolerating PO liquids. MOnitor for diarrhea- if recurs, check for C. Diff and resume IVF. Monitor I/O's and daily weights. (4) SARS-CoV-2 positive: Status: Acute Assessment and plan: Continue remdesivir, IS/acapella. (5) Kidney transplant recipient: Assessment and plan: Hold Astagraf due to toxic levels. Continue mycophenolate (low dose). Stress dose steroids are being tapered. (6) DVT prophylaxis: Status: Acute Assessment and plan: SC heparin (7) Discharge planning issues: Status: Acute Assessment and plan: Full code Anticipate transfer to [facility]. Accepting MD: Dr Mark Calle Subjective Subjective Interval history since last seen: Mr Rangel is frustrated that he still does not have a bed at [facility]. I discussed his case with [facility] this morning only to find out that his transfer had been cancelled without my knowledge. I spoke with Amalia Mcintyre and Dr Siu of transplant nephrology, who both feel that he still needs to be tr ansferred (based on his tacrolimus level of >30). The patient was placed back on the transfer list under the accepting Dr Mark Calle. Mr Rangel verbalizes understanding when I tell him that he needs to spend time in a chair and not just in bed. Denies dizziness, chest pain, shortness of breath, nausea, diarrhea. Exam Narrative Exam Narrative: General: Middle-aged male who is comfortable in bed, A&Ox3, NAD HEENT: EOMI, MMM Cardiovascular: RRR, +EUNICE Lungs: CTAB Gastrointestinal: soft, nontender, nondistended Extremities: no edema BLEs, +1 pedal pulses B Objective Last Vital Signs Temp 36.4 C L 10/24/21 12:35 Pulse 55 L 10/24/21 12:35 Resp 18 10/24/21 12:35 BP 139/71 10/24/21 12:35 Pulse Ox 92 10/24/21 12:35 Laboratory Results - last 24 hr 10/24/21 10/24/21 06:00 06:00 WBC 4.61 RBC 3.29 L Hgb 9.7 L Hct 30.2 L MCV 92 MCH 29.5 MCHC 32.1 RDW 13.2 Plt Count 106 L MPV 9.9 Sodium 141 Potassium 4.2 Chloride 109 H Carbon Dioxide 25.2 Anion Gap 6.8 BUN 44 H Creatinine 2.0 H Estimated GFR/1.73 m2 33.60 Glucose 107 H Calcium 9.2 Magnesium 1.7 L
[2021-10-24] MEDS: REMDESIVIR 100 MG in Normal Saline 250 ML 250 MG IVPB (17:15)
[2021-10-24 18:04] VITALS: BP 133/58; PULSE 63; RESP 18; TEMP 36.9; O2SAT 92
[2021-10-24 22:00] VITALS: BP 117/64; PULSE 68; RESP 18; TEMP 37.2; O2SAT 94
[2021-10-25 03:00] VITALS: BP 118/60; PULSE 57; RESP 18; TEMP 37; O2SAT 95
[2021-10-25] MEDS: Levothyroxine 75 MCG TAB PO (05:40)
[2021-10-25 07:03] LABS: Abs Immature Grans 0.16 10^3/uL (0.0-0.06); Absolute Basophil Count 0.02 10^3/uL (0.0-0.2); Absolute Eosinophil Count 0.06 10^3/uL (0.0-0.7); Absolute Lymphocyte Count 0.79 10^3/uL (1.2-3.4); Absolute Monocyte Count 0.41 10^3/uL (0.1-0.8); Absolute Neutrophil Count 2.76 10^3/uL (1.2-6.7); Basophils % 0.5; Eosinophils % 1.4; HCT 30.6 % (40.0-50.0); HGB 10.1 g/dL (13.5-17.5); Immature Grans % 3.8; Lymphocytes % 18.8; MCH 30.1 pg (27.0-33.0); MCV 91 fL (80-95); MPV 10.9 fL (8.0-11.0); Monocytes % 9.8; Neutrophils % 65.7; RBC 3.36 10^6/uL (4.36-5.78); RDW 13.3 % (11.8-14.1); RDW-SD 44.8 fL
[2021-10-25 07:13] LABS: Anion Gap 7.5 mmol/L (3-11); BUN 37 mg/dL (7-18); C-Reactive Protein 2.56 mg/dL (0.0-0.3); CO2 24.5 mmol/L (21.0-32.0); CREATININE 1.7 mg/dL (0.70-1.30); Calcium 8.9 mg/dL (8.5-10.1); Chloride 110 mmol/L (98-107); Estimated GFR 40.53 (mL/min/1.73m2); Glucose 96 mg/dL (74-106); Magnesium 1.4 mg/dL (1.8-2.4); Potassium 4.1 mmol/L (3.5-5.1); Sodium 142 mmol/L (136-145)
[2021-10-25 07:19] LABS: Burr Cells (echinocyte) 2+; Diff Comment Diff Reviewed; Platelet Count 93 10^3/uL (130-400)
[2021-10-25] MEDS: Hydrocortisone SOD SUC. 100 MG VIAL 25 MG IVP (08:07)
[2021-10-25] MEDS: Citalopram 20 MG TAB 40 MG PO (08:08)
[2021-10-25] MEDS: Clopidogrel 75 MG TAB PO (08:08)
[2021-10-25] MEDS: Normal Saline Flush 10 ML SYR IVP ×5 (08:08→18:38)
[2021-10-25] MEDS: predniSONE 5 MG TAB PO (08:08)
[2021-10-25] MEDS: levETIRAcetam 500 MG TAB 1000 MG PO ×2 (08:08→21:52)
[2021-10-25] MEDS: Famotidine 20 MG TAB PO (08:16)
[2021-10-25 08:17] VITALS: BP 125/64; PULSE 58; RESP 18; TEMP 37.1; O2SAT 95
[2021-10-25 08:33] LABS: INR 1.1 (0.9-1.1); Prothrombin Time 11.4 sec (9.3-11.0)
--- NOTE | 2021-10-25 09:08 | PT.INTREAT ---
Date of service: 10/25/21 Time of Service: 08:43 PT Notes Visit Reasons: SOLOMON in a Renal Transplant PT,Recent Covid-19 Inpatient Physical Therapy Treatment Note [facility] Date: 10/25/2021 PRECAUTIONS: COVID-19, activity as tolerated SUBJECTIVE: Guevara is pleasant and agreeable to participating in PT. He states that he is feeling much better then when he was admitted and feels better every day that he is here. He reports that he has been transferring and ambulating in his room independently. He feels that he is at his functional baseline. OBJECTIVE: PAIN: No c/o pain TRANSFERS/BED MOBILITY: Supine-sit: I Sit-supine: I Sit-stand: I Stand-sit: I Bed-chair: I Chair-bed: I GAIT Assistive Device: No AD Weight bearing: Full Assist: I Distance: Approx 200' in room Deviation: None, steady gait and pacing, dynamic standing balance: normal ASSESSMENT: Patient demonstrates independence with ambulation, transfers and bed mobility at this time. He demonstrates steady gait and pacing, and normal dynamic standing balance at this time. PLAN: Re-assess patient tomorrow to determine appropriateness for PT participation. TREATMENT CODE/TIME: 15 minutes; [id number] (08:44)
[2021-10-25 11:55] VITALS: BP 115/61; PULSE 55; RESP 18; TEMP 36; O2SAT 92
[2021-10-25] MEDS: Polyethylene Glycol 3350 17 GM PACKET PO (11:56)
[2021-10-25] MEDS: Docusate Sodium 100 MG CAP PO (11:57)
[2021-10-25] MEDS: MAGNESIUM SULFATE 2 GM/50 ML BAG IVPB (11:57)
--- NOTE | 2021-10-25 12:05 | PDOC.CMPRO ---
- If Service Date Differs Date of service: 10/25/21 Time of Service: 12:05 Care Management Progress Note S/O: Guevara remains on Covid 19 restrictions, therefore CM will not see him in person. He is currently accepted by [facility] in transfer, but they do not have a bed at this time. MD continues to show medical need for transfer. Per RN, he is very frustrated at having to wait for so long. CM will continue to follow. A: Guevara is a 65 year old male admitted to [facility] on 10/21/21 for SOLOMON in a renal transplant pt, Covid 19. P: Guevara will return home when medically cleared vs transfer to [facility]. He will be driven home via private vehicle by family, if discharged home. If transferred, he will transport via EMS, coordinated by RN Front Desk Person. He will follow up with his PCP and discharge plan of care. CM will continue to follow.
[2021-10-25 16:04] VITALS: BP 146/64; PULSE 53; RESP 18; TEMP 36.6; O2SAT 90
[2021-10-25] MEDS: REMDESIVIR 100 MG in Normal Saline 250 ML 250 MG IVPB (17:07)
--- NOTE | 2021-10-25 19:49 | PGE_ITS ---
Date of Service Date of service: 10/25/21 Time of Service: 19:49 Assessment and Plan Assessment and plan (1) Acute kidney injury superimposed on chronic kidney disease: Status: Acute Assessment and plan: In setting of tacrolimus toxicity (level >30), COVID-19 infection, as well as adrenal insufficiency, dehydration. No evidence of urinary retention by bladder scans. Cr is down to 1.7 today (baseline is 1.5). Off of IVF - no diarrhea. Continue remdesivir. We have been holding Astagraf. Continue low dose mycophenolate. Await transfer to [facility]. Patient's entry rep at [facility] is Anayeli Mcintyre, and her cell phone number is [phone]. (2) Tacrolimus-induced nephrotoxicity: Status: Acute Assessment and plan: As above (3) Acute dehydration: Status: Resolved Assessment and plan: Off of IVF. Tolerating PO liquids. MOnitor for diarrhea- if recurs, check for C. Diff and resume IVF. Monitor I/O's and daily weights. (4) SARS-CoV-2 positive: Status: Acute Assessment and plan: Continue remdesivir, IS/acapella. (5) Kidney transplant recipient: Assessment and plan: Hold Astagraf due to toxic levels. Continue mycophenolate (low dose). Stress dose steroids are being tapered. (6) DVT prophylaxis: Status: Acute Assessment and plan: SC heparin (7) Discharge planning issues: Status: Acute Assessment and plan: Full code Anticipate transfer to [facility]. Accepting MD: Dr Mark Calle Subjective Subjective Interval history since last seen: Mr Rangel continues to await a bed at [facility] (they are still at critical capacity). He denies dizziness, chest pain, shortness of breath, nausea. Our visit today was over the phone due to patient's diagnosis of COVID-19 and stable clinical picture. Exam Narrative Exam Narrative: The patient's visit today was via a phone. He did not have any difficulty breathing that I could appreciate on the phone, appeared to be in good spirits, A&Ox3, asked appropriate questions. Objective Last Vital Signs Temp 36.6 C 10/25/21 16:04 Pulse 53 L 10/25/21 16:04 Resp 18 10/25/21 16:04 BP 146/64 H 10/25/21 16:04 Pulse Ox 90 L 10/25/21 16:04 Laboratory Results - last 24 hr 10/25/21 10/25/21 10/25/21 06:40 06:40 06:40 WBC 4.20 L RBC 3.36 L Hgb 10.1 L Hct 30.6 L MCV 91 MCH 30.1 MCHC 33.0 D RDW 13.3 Plt Count 93 L MPV 10.9 Immature Gran % 3.8 Neutrophils % 65.7 Lymphocytes % 18.8 Monocytes % 9.8 Eosinophils % 1.4 Basophils % 0.5 Nucleated RBC % 0.0 Absolute Neutrophils 2.76 Absolute Lymphocytes 0.79 L Absolute Monocytes 0.41 Absolute Eosinophils 0.06 Absolute Basophils 0.02 RBC Morphology See Below Hughes Cells/Echinocytes 2+ PT Cancelled INR Cancelled Sodium 142 Potassium 4.1 Chloride 110 H Carbon Dioxide 24.5 Anion Gap 7.5 BUN 37 H Creatinine 1.7 H Estimated GFR/1.73 m2 40.53 Glucose 96 Calcium 8.9 Magnesium 1.4 L C-Reactive Protein 2.56 H 10/25/21 08:15 WBC RBC Hgb Hct MCV MCH MCHC RDW Plt Count MPV Immature Gran % Neutrophils % Lymphocytes % Monocytes % Eosinophils % Basophils % Nucleated RBC % Absolute Neutrophils Absolute Lymphocytes Absolute Monocytes Absolute Eosinophils Absolute Basophils RBC Morphology Hughes Cells/Echinocytes PT 11.4 H INR 1.1 Sodium Potassium Chloride Carbon Dioxide Anion Gap BUN Creatinine Estimated GFR/1.73 m2 Glucose Calcium Magnesium C-Reactive Protein
[2021-10-25 22:00] VITALS: BP 110/60; PULSE 58; RESP 18; TEMP 36.4; O2SAT 94
[2021-10-26 02:55] VITALS: BP 119/60; PULSE 55; RESP 18; TEMP 36.6; O2SAT 94
[2021-10-26] MEDS: Levothyroxine 75 MCG TAB PO (06:20)
[2021-10-26 07:26] VITALS: BP 123/58; PULSE 61; RESP 18; TEMP 36.2; O2SAT 94
[2021-10-26] MEDS: Normal Saline Flush 10 ML SYR IVP (07:57)
[2021-10-26] MEDS: Hydrocortisone SOD SUC. 100 MG VIAL 25 MG IVP (07:58)
[2021-10-26] MEDS: predniSONE 5 MG TAB PO (07:58)
[2021-10-26] MEDS: Clopidogrel 75 MG TAB PO (07:58)
[2021-10-26] MEDS: Famotidine 20 MG TAB PO (07:58)
[2021-10-26] MEDS: Citalopram 20 MG TAB 40 MG PO (07:58)
[2021-10-26] MEDS: levETIRAcetam 500 MG TAB 1000 MG PO ×2 (07:59→20:49)
[2021-10-26 08:37] LABS: Anion Gap 5.6 mmol/L (3-11); BUN 31 mg/dL (7-18); CO2 27.4 mmol/L (21.0-32.0); CREATININE 1.6 mg/dL (0.70-1.30); Calcium 9.2 mg/dL (8.5-10.1); Chloride 108 mmol/L (98-107); Estimated GFR 43.46 (mL/min/1.73m2); Glucose 111 mg/dL (74-106); Potassium 3.9 mmol/L (3.5-5.1); Sodium 141 mmol/L (136-145)
--- NOTE | 2021-10-26 09:45 | INDS_ITS ---
PT Notes Visit Reasons: SOLOMON in a Renal Transplant PT,Recent Covid-19 Inpatient Physical Therapy Discharge Summary Dates: 10/26/2021 Dates of Service: -2021 SUBJECTIVE: Patient states he is feeling better since being admitted to the hospital. He is anxious to be transferred to [facility] and is frustrated on the waiting list etc. OBJECTIVE: Pain: No complaints offered ROM: Has pain-free functional range of motion throughout his articular structures STRENGTH: Full volitional movement strength generally rated 5/5 BED MOBILITY/TRANSFERS: Supine-sit independent Sit-supine independent Sit-stand independent Stand-sit independent Bed-Chair independent Chair-bed independent GAIT: Ambulates without an assistive device with stable gait throughout his room. Does not require supervision BALANCE: Static sitting stable Dynamic sitting stable Static standing stable Dynamic standing stable SPECIAL TESTS: ASSESSMENT: Patient is independent with all bed mobility activities and ambulation does not require any further physical therapy. All goals attained GOALS ( Met DISCHARGE PLAN/RECOMMENDATIONS: Awaiting transfer to [facility] This document serves as a summary care. No PT services were provided on this day.
--- NOTE | 2021-10-26 10:35 | CMPROGNOTE_ITS ---
- If Service Date Differs Date of service: 10/26/21 Time of Service: 10:35 Care Management Progress Note S/O: Guevara remains on precautions being closely monitored. Per report, he has been accepted for transfer at [facility], pending a bed offer. CM will continue to follow. A: Guevara is a 65 year old male admitted to [facility] on 10/21/21 for SOLOMON in a renal transplant pt, Covid 19. P: Guevara will return home when medically cleared vs transfer to [facility]. He will be driven home via private vehicle by family, if discharged home. If transferred, he will transport via EMS, coordinated by RN Unit Trust Manager. He will follow up with his PCP and discharge plan of care. CM will continue to follow.
[2021-10-26 12:12] VITALS: BP 125/65; PULSE 62; RESP 16; TEMP 36.2; O2SAT 93
[2021-10-26 16:54] VITALS: BP 135/76; PULSE 59; RESP 18; TEMP 35.9; O2SAT 93
--- NOTE | 2021-10-26 17:50 | PGE_ITS ---
Date of Service Date of service: 10/26/21 Time of Service: 17:50 Assessment and Plan Assessment and plan (1) Acute kidney injury superimposed on chronic kidney disease: Status: Acute Assessment and plan: In setting of tacrolimus toxicity (level >30), COVID-19 infection, as well as adrenal insufficiency, dehydration. No evidence of urinary retention by bladder scans. Cr is down to 1.6 today (baseline is 1.5). Off of IVF - no diarrhea. Continue remdesivir. We have been holding Astagraf. Continue low dose mycophenolate. Await transfer to [facility]. Patient's flexographic press plate setter at [facility] is Anayeli Mcintyre, and her cell phone number is [phone]. (2) Tacrolimus-induced nephrotoxicity: Status: Acute Assessment and plan: As above (3) Acute dehydration: Status: Resolved Assessment and plan: Off of IVF. Tolerating PO liquids. MOnitor for diarrhea- if recurs, check for C. Diff and resume IVF. Monitor I/O's and daily weights. (4) SARS-CoV-2 positive: Status: Acute Assessment and plan: Continue remdesivir, IS/acapella. (5) Kidney transplant recipient: Assessment and plan: Hold Astagraf due to toxic levels. Continue mycophenolate (low dose). Stress dose steroids are being tapered. (6) DVT prophylaxis: Status: Acute Assessment and plan: SC heparin (7) Discharge planning issues: Status: Acute Assessment and plan: Full code Anticipate transfer to [facility]. Accepting MD: Dr Mark Calle Subjective Subjective Patient reports: no new complaints, feels better and afebrile; denies nausea, vomiting or shortness of breath Exam Narrative Exam Narrative: Pt lying in bed. Conversant. Const General: cooperative and no acute distress Orientation: alert and oriented x3 Eyes General: appearance normal, both eyes and all related structures Sclera: sclerae normal Resp Effort & Inspection: normal respiratory effort and no cough Auscultation: clear to auscultation bilaterally Cardio Rate: regular rate Rhythm: regular rhythm Psych Appearance: grossly normal Mental Status: mental status grossly normal Speech and Movement: speech and movement normal Affect: normal affect Attitude: cooperative Objective Last Vital Signs Temp 35.9 C L 10/26/21 16:54 Pulse 59 L 10/26/21 16:54 Resp 18 10/26/21 16:54 BP 135/76 10/26/21 16:54 Pulse Ox 93 10/26/21 16:54 Laboratory Results - last 24 hr 10/26/21 08:04 Sodium 141 Potassium 3.9 Chloride 108 H Carbon Dioxide 27.4 Anion Gap 5.6 BUN 31 H Creatinine 1.6 H Estimated GFR/1.73 m2 43.46 Glucose 111 H Calcium 9.2
[2021-10-26 20:49] VITALS: BP 140/64; PULSE 63; RESP 18; TEMP 36.6; O2SAT 93
[2021-10-26 23:40] VITALS: BP 136/80; PULSE 58; RESP 20; TEMP 37.2; O2SAT 93
[2021-10-27 03:05] VITALS: BP 130/68; PULSE 56; RESP 20; TEMP 37; O2SAT 93
[2021-10-27] MEDS: Levothyroxine 75 MCG TAB PO (06:10)
[2021-10-27] MEDS: Clopidogrel 75 MG TAB PO (08:25)
[2021-10-27] MEDS: predniSONE 5 MG TAB PO (08:25)
[2021-10-27] MEDS: Citalopram 20 MG TAB 40 MG PO (08:25)
[2021-10-27] MEDS: Hydrocortisone SOD SUC. 100 MG VIAL 25 MG IVP (08:25)
[2021-10-27] MEDS: levETIRAcetam 500 MG TAB 1000 MG PO (08:25)
[2021-10-27] MEDS: Famotidine 20 MG TAB PO (08:25)
[2021-10-27 08:28] VITALS: BP 96/52; PULSE 67; RESP 18; TEMP 36.6; O2SAT 91
[2021-10-27 10:22] VITALS: BP 135/88; PULSE 65; RESP 20; TEMP 36.4; O2SAT 92
--- NOTE | 2021-10-27 10:27 | PDOC.CMPRO ---
- If Service Date Differs Date of service: 10/27/21 Time of Service: 10:27 Care Management Progress Note S/O: A: Guevara is a 65 year old male admitted to [facility] on 10/21/21 for SOLOMON in a renal transplant pt, Covid 19. P: Guevara will return home when medically cleared vs transfer to [facility]. He will be driven home via private vehicle by family, if discharged home. If transferred, he will transport via EMS, coordinated by RN Outside Rigger. He will follow up with his PCP and discharge plan of care. CM will continue to follow.
--- NOTE | 2021-10-27 10:54 | W.PM.DS.N ---
Date of service: 10/27/21 Time of Service: 10:54 DS: Diagnosis Discharge Diagnosis (1) Acute kidney injury superimposed on chronic kidney disease: Status: Acute (2) Tacrolimus-induced nephrotoxicity: Status: Acute (3) Acute dehydration: Status: Resolved (4) SARS-CoV-2 positive: Status: Acute (5) Kidney transplant recipient: (6) DVT prophylaxis: Status: Acute (7) Discharge planning issues: Status: Acute Discharge Plan Disposition Patient Disposition: HOME Condition: Improving Discharge Details Reason For Visit: SOLOMON in a Renal Transplant PT,Recent Covid-19 Admit Date/Time: 10/21/21 13:37 Admit Provider: Salma Seaman Attending Provider: Salma Seaman Primary Care Provider: Shahzad Domingo Hospital Course Hospital Course: F/U with Dr. Domingo in 1-2 weeks. Home Meds and New Rx's Prescriptions: Continued clopidogrel [Plavix] 75 MG tablet 75 mg PO DAILY citalopram 40 MG tablet 40 mg PO DAILY calcitriol 0.25 MCG capsule 0.25 mcg PO DAILY atorvastatin [Lipitor] 40 MG tablet 40 mg PO HS prochlorperazine maleate 10 mg tablet 1 tab PO TID PRN Label Comments: TAKE ONE TABLET BY MOUTH EVERY 8 HOURS NEEDED FOR NAUSEA AND VOMITING levothyroxine 75 mcg tablet 75 mcg DAILY Label Comments: TAKE ONE TABLET BY MOUTH EVERY DAY levetiracetam 500 mg Tablet 1,000 mg PO BID Qty: 0 0RF mycophenolate sodium 180 mg Tablet,Delayed Release (Dr/Ec) 180 mg PO BID Qty: 0 0RF Rx Instructions: 180 mg BID for 2 weeks, then increase to 360mg BID Held Astagraf XL 1 mg Capsule,Extended Release 24hr 4 mg PO QAM Hold Instructions: Hold until clean rice broker restarts (disregard the restart date of 11/28). carvedilol 3.125 mg tablet 3.125 mg PO BID Hold Instructions: Hold until nephrology advises to restart Label Comments: TAKE ONE TABLET BY MOUTH TWICE A DAY No Action prednisone 5 mg tablet 5 mg PO DAILY Label Comments: TAKE 1 TABLET BY MOUTH DAILY Discharge Instructions Activity:: Activity as Tolerated Equipment/Supplies:: No Equipment Needed Diet:: Resume usual diet Discharge Orders Discharge Orders: Discharge Order (Routine); Ordered 10/27/21 Ordered By: Ayush Morataya DS: Summary Time Spent with Patient providing and/or coordinating discharge services: Greater than 30 minutes Status at Discharge Functional status at discharge: independent ambulation Overall status at discharge: patient is progressing back to baseline Mental Status: mental status grossly normal Speech and Movement: speech and movement normal Mood: congruent mood Affect: normal affect Exam Narrative Exam Narrative: Pt lying in bed. Conversant. Const General: cooperative and no acute distress Orientation: alert and oriented x3 Eyes General: appearance normal, both eyes and all related structures Sclera: sclerae normal Resp Effort & Inspection: normal respiratory effort and no cough Auscultation: clear to auscultation bilaterally Cardio Rate: regular rate Rhythm: regular rhythm Psych Appearance: grossly normal Mental Status: mental status grossly normal Speech and Movement: speech and movement normal Mood: congruent mood Affect: normal affect Attitude: cooperative DS: Data Vitals/I&O Vitals and I&O: Vital Signs Temperature 36.4 C L 10/27/21 10:22 Temperature Source Tympanic 10/27/21 10:22 Pulse 65 10/27/21 10:22 Pulse Rhythm Regular 10/27/21 08:25 Respiratory Rate 20 10/27/21 10:22 Respiratory Effort Non-Labored 10/27/21 08:25 Respiratory Depth Normal 10/27/21 08:25 Respiratory Pattern Normal 10/27/21 08:25 Blood Pressure 135/88 10/27/21 10:22 Blood Pressure Mean 70 10/21/21 14:31 Blood Pressure Position Sitting 10/21/21 11:23 Pulse Oximetry 92 10/27/21 10:22 Oxygen Delivery Method Room Air 10/27/21 10:22 Oxygen Flow Rate 0 10/27/21 10:22 Pain Level 0 10/27/21 08:28 Comment 10/21/21 20:20 Intake & Output 10/26/21 10/26/21 10/27/21 11:59 23:59 11:59 Intake Total 40 / 40 60 / 60 Output Total 600 / 1300 700 / 1300 1475 / 1475 Balance -560 / -1260 -700 / -1260 -1415 / -1415 Weight 110.3 kg 109.6 kg Intake: IV 40 / 40 Oral 60 / 60 Output: Urine 600 / 1300 700 / 1300 1475 / 1475 Other: Urine Color Yellow Yellow Urine Appearance Clear Clear Clear Urine Odor None Normal Comment Patient reports Tricia dumped the urinal earlier too. Stool Size Moderate Moderate Stool Characteristics Formed Formed Voiding Methods Urinal Urinal Urinal Data Completed and Pending Labs on day of discharge: Labs from last 24 hours 10/27/21 06:20 Tacrolimus Pending [facility] All Active Problems Tacrolimus-induced nephrotoxicity (Acute) Discharge planning issues (Acute) DVT prophylaxis (Acute) Acute kidney injury superimposed on chronic kidney disease (Acute) History of COVID-19 (Acute) Pancytopenia (Acute) SARS-CoV-2 positive (Acute) Colonoscopy - MAC (Acute 12/03/15) Medical History Complete tear of left rotator cuff (06/24/16) Coronary artery disease Depression Gout HTN (hypertension) Hx of hyperlipidemia IgA nephropathy Obstructive sleep apnea Renal failure Seizure disorder Tubular adenoma of colon (12/23/15) Surgical History History of coronary artery stent placement History of eye surgery Hx of CABG Kidney transplant recipient Social History Smoking/Tobacco Use Status: Never Smoking risk assessment performed?: Yes Alcohol Intake: never Drug use: Never Do you feel safe at home: Yes Do you feel safe in your relationship?: Yes
--- NOTE | 2021-10-27 15:26 | PDOC.CMDIS ---
- If Service Date Differs Date of service: 10/27/21 Time of Service: 15:26 LACE Index Scoring Tool - Questions: Length of Stay (in days): 4 - 6 Acuity (Admit via E.D.?): Yes Comorbidities: Liver or Renal Disease E.D. Visits: 2 - Answers: Total Score: 14 Risk of Readmission: High Risk Care Management Discharge Reason for Hospitalization: SOLOMON in a renal transplant pt, recent Covid 19 Discharge Plan: Guevara returned home today with no new services. He was driven home via private vehicle by his . He will follow up with his PCP and discharge plan of care. Patient/Family Education Needs: Review discharge instructions and limitations, discussion of self care needs including ask me three.
[2021-10-28 13:54] LABS: Tacrolimus 7.5 ng/mL (See Note)
== END 2021-10-27 11:57 | disposition home or self-care (01) | DRG 682 ==
LOC: ER 14:42 → MS 15:43
PROVIDERS: Family Medicine; Admitting Provider Internal Medicine; Emergency Provider Physician Assistant; PCP Internal Medicine; Visit Provider Internal Medicine
DX: N17.9 Acute kidney failure, unspecified (principal); U07.1 COVID-19; Z94.0 Kidney transplant status; D84.821 Immunodeficiency due to drugs; E27.40 Unspecified adrenocortical insufficiency; D61.818 Other pancytopenia; T45.1X5A Adverse effect of antineoplastic and immunosuppressive drugs, initial encounter; E86.0 Dehydration; N18.9 Chronic kidney disease, unspecified; R53.1 Weakness; F32.A Depression, unspecified; I10 Essential (primary) hypertension; I25.10 Atherosclerotic heart disease of native coronary artery without angina pectoris; Z95.5 Presence of coronary angioplasty implant and graft; Z95.1 Presence of aortocoronary bypass graft; G40.909 Epilepsy, unspecified, not intractable, without status epilepticus; M10.9 Gout, unspecified; Z79.899 Other long term (current) drug therapy; G47.33 Obstructive sleep apnea (adult) (pediatric); I95.9 Hypotension, unspecified; N02.8 Recurrent and persistent hematuria with other morphologic changes; R19.7 Diarrhea, unspecified; Z79.52 Long term (current) use of systemic steroids
CPT/HCPCS: 36410; 36415; 80048; 80053; 80076; 82550; 85027; 87635; 93005; 96361; 96374; 97110; 97162; 97530; 99285; 71045; 80197; 81003; 82728; 83735; 85025; 85610; 86140; 93010; 99223; 99231; 99233; 99239; J0248; J1644; J1720; J3475; J3490; J7512

== ENCOUNTER 2021-12-30 16:25 | Outpatient (REF) | payer MEDICARE, OTHER, SELFPAY ==
[2021-12-30 15:09] LABS: Uric Acid 7.8 mg/dL (3.5-7.2)
== END 2021-12-30 16:26 | disposition home or self-care (01) ==
LOC: LBN 16:25
PROVIDERS: PCP Internal Medicine; Visit Provider Nurse Practitioner Family
DX: M10.9 Gout, unspecified (principal)
CPT/HCPCS: 84550

== ENCOUNTER → 2022-04-04 12:25 | Outpatient (CLI) | payer MEDICARE, OTHER, SELFPAY ==
--- NOTE | 2022-04-04 | DI.RAD_ITS ---
Exam(s) XR CHEST 2V PA LATERAL EXAM: XR CHEST 2V PA LATERAL CLINICAL HISTORY: EXERTIONAL DYSPNEA, R06.09, COUGH, RENAL TRANSPLANT TECHNIQUE: 2D digital imaging was performed. COMPARISON: CT ABD PELVIS WO CONTRAST from 10/11/2016 CR CHEST 2 VIEWS PA,LAT from 03/24/2017 CR XR CHEST 2V PA LATERAL from 09/03/2018 CR XR PORTABLE CHEST AP from 10/21/2021 FINDINGS: HEART: Mildly enlarged.. Aorta: Mildly enlarged. Coronary artery stents and prior CABG. PULMONARY VASCULATURE: Normal. LUNGS: Clear. PLEURAL SPACE: No pleural effusion or pneumothorax. BONE:Sternal wires. IMPRESSION: No acute abnormality. DATA REPOSITORY: RADIATION DOSE DELIVERED:
== END ==
PROVIDERS: PCP Internal Medicine; Visit Provider Internal Medicine
DX: R06.09 Other forms of dyspnea (principal); R05.8 Other specified cough; I51.7 Cardiomegaly; Z95.1 Presence of aortocoronary bypass graft
CPT/HCPCS: 71046

== ENCOUNTER 2022-08-17 11:22 | Outpatient (CLI) | payer MEDICARE, OTHER, SELFPAY ==
--- NOTE | 2022-08-17 | DI.RAD_ITS ---
Exam(s) XR SHOULDER RT COMPLETE 2+V EXAM: XR SHOULDER RT COMPLETE 2+V CLINICAL HISTORY: RT SHOULDER PAIN, M25.511, S/P STRIKING AGAINST DOOR JAM 3 WEEKS AGO. TECHNIQUE: 2D digital imaging was performed of the right shoulder. Six images were obtained. AP, G rashey, Y-view and axillary views were obtained. COMPARISON: No exams were available for comparison FINDINGS: BONES: No acute fracture is present. No bony destructive lesion is seen. JOINTS: No dislocation present. There are degenerative changes seen at both the glenohumeral and acro mioclavicular joint characterized by joint space narrowing and periarticular spurring. SOFT TISSUE: Normal. IMPRESSION: 1. No acute or healing fracture or dislocation. 2. Degenerative changes of the glenohumeral and acromioclavicular joints as described. DATA REPOSITORY: RADIATION DOSE DELIVERED:
== END 2022-08-17 11:42 ==
PROVIDERS: PCP Internal Medicine; Visit Provider Physician Assistant Medical
DX: M25.511 Pain in right shoulder (principal)
CPT/HCPCS: 73030

== ENCOUNTER → 2022-09-21 10:40 | Outpatient (BNVA) | payer MEDICARE, OTHER, SELFPAY | PROVIDERS: PCP Internal Medicine; Referring Provider Internal Medicine; Visit Provider Student in an Organized Health Care Education/Training Program | DX: M12.811 Other specific arthropathies, not elsewhere classified, right shoulder (principal); M75.101 Unspecified rotator cuff tear or rupture of right shoulder, not specified as traumatic | CPT/HCPCS: 99213 ==

== ENCOUNTER 2022-12-05 00:34 | Outpatient (CLI) | payer MEDICARE, BC, SELFPAY ==
--- NOTE | 2022-12-05 07:40 | DI.US_ITS ---
Exam(s) US THYROID EXAM: US THYROID CLINICAL HISTORY: THYROID NODULES E04.2. TECHNIQUE: Ultrasound thyroid performed using standard protocol. COMPARISON: US THYROID ULTRASOUND from 05/30/2017 FINDINGS: ISTHMUS: 4 mm RIGHT LOBE: Size: 4.1 x 1.6 x 1.7 cm Echogenicity: Normal. Vascularity: Normal. Nodules: None. LEFT LOBE: Size: 4.0 x 1.4 x 1 4 cm Echogenicity: Normal. Vascularity: Normal. Nodules: None. OTHER FINDINGS: None. IMPRESSION: Normal sonographic appearance of the thyroid gland. DATA REPOSITORY:
== END 2022-12-05 00:54 ==
PROVIDERS: PCP Internal Medicine; Visit Provider Internal Medicine
DX: E04.2 Nontoxic multinodular goiter (principal)
CPT/HCPCS: 76536

== ENCOUNTER 2023-09-14 13:29 | Emergency (ER) | payer BC, MEDICARE, SELFPAY ==
[2023-09-14 13:31] VITALS: BP 125/59; PULSE 65; RESP 18; TEMP 36.5; O2SAT 100
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
--- NOTE | 2023-09-14 13:45 | RT.EKG_ITS ---
APPROVED REPORT Exam: Resting ECG Reason for Exam: Syncope Patient Location: E HR:65 bpm ECG Measurements Heart Rate 65 AXIS DE 229 P -10 QRSd 156 QRS -42 QT 434 T 123 QTc 452 Conclusion Sinus rhythm...normal P axis, V-rate 60- 99 Prolonged DE interval...DE >220, V-rate 50- 90 Left bundle branch block...QRSd>120, broad/notched R Normal sinus rhythm at a rate of 65 with left bundle branch block. Not meeting Sgarbossa criteria no r modified Self criteria for ischemia. Lateral T wave inversions 1 and aVL. First-degree AV block. QTc within normal limits.Compared to prior dated 2 years ago left bundle branch block is persistent . Prolonged QTc is also persistent. Left lateral T wave inversions are also persistent. No acute i njury pattern.
[2023-09-14] MEDS: Benzonatate 100 MG CAP PO (14:21)
[2023-09-14 14:23] LABS: Abs Immature Grans 0.06 10^3/uL (0.0-0.06); Absolute Basophil Count 0.02 10^3/uL (0.0-0.2); Absolute Monocyte Count 0.49 10^3/uL (0.1-0.8); Absolute Neutrophil Count 5.37 10^3/uL (1.2-6.7); Basophils % 0.3 %; Eosinophils % 1.3 %; HCT 33.5 % (40.0-50.0); HGB 10.5 g/dL (13.5-17.5); Immature Grans % 0.8 %; MCH 30.1 pg (27.0-33.0); MCHC 31.3 % (32.0-36.0); MCV 96 fL (80-95); MPV 9.1 fL (8.0-11.0); Monocytes % 6.3 %; Neutrophils % 69.3 %; Platelet Count 111 10^3/uL (130-400); RBC 3.49 10^6/uL (4.36-5.78); RDW 14.4 % (11.8-14.1); RDW-SD 49.9 fL; WBC 7.74 10^3/uL (4.4-10.8)
[2023-09-14 14:39] LABS: COVID-19 PCR Negative (Negative); Influenza A PCR Negative (Negative); Influenza B PCR Negative (Negative); RSV PCR Negative (Negative)
[2023-09-14 14:39] LABS: Anion Gap 8.7 mmol/L (3-11); BUN 28 mg/dL (7-18); CO2 25.3 mmol/L (21.0-32.0); CREATININE 1.6 mg/dL (0.70-1.30); Calcium 9.4 mg/dL (8.5-10.1); Chloride 105 mmol/L (98-107); Estimated GFR 46.64 (mL/min/1.73m2); Glucose 118 mg/dL (74-106); Potassium 5.2 mmol/L (3.5-5.1); Sodium 139 mmol/L (136-145)
[2023-09-14 14:42] LABS: Source Nasopharynx
--- NOTE | 2023-09-14 14:52 | DI.RAD_ITS ---
Exam(s) XR CHEST 2V PA LATERAL EXAM: XR CHEST 2V PA LATERAL CLINICAL HISTORY: Cough. TECHNIQUE: 2D digital imaging was performed. COMPARISON: CR XR CHEST 2V PA LATERAL from 01/15/2019 CR XR PORTABLE CHEST AP from 10/21/2021 CR XR CHEST 2V PA LATERAL from 04/04/2022 FINDINGS: 2 views: Sternotomy wires again noted as well as coronary artery stent left-side. Heart size is normal. The mediastinum is not widened. Right lung is clear. Patchy increased markings left lower lobe retrocardiac region appear unchanged from previous and are possibly vascular. There are no Ariana B lines. No pleural effusions. Right shoulder prosthesis noted. IMPRESSION: No evidence of airspace pulmonary edema in this patient to has sternotomy wires and coronary artery s tent. Also no pleural effusions. Mild increased markings left lower lobe retrocardiac region noted which appear unchanged from prior c hest x-rays dating back to at least December 2018 and therefore probably just vascular markings. DATA REPOSITORY: RADIATION DOSE DELIVERED:
[2023-09-14 14:58] VITALS: BP 114/70; RESP 16; O2SAT 95
--- NOTE | 2023-09-14 17:42 | NUR.NOTE ---
Referral faxed to [facility] for heart murmur, order Echo in 1 week. ED chart summary fax[facility]. Nursing Note:
== END 2023-09-14 15:45 | disposition home or self-care (01) ==
PROVIDERS: Emergency Provider Emergency Medicine; PCP Physician Assistant
DX: R05.1 Acute cough (principal); R55 Syncope and collapse; E87.5 Hyperkalemia; R01.1 Cardiac murmur, unspecified
CPT/HCPCS: 36415; 80048; 87637; 93005; 99283; 71046; 85025; 93010

== ENCOUNTER 2023-09-17 11:46 | Emergency (ER) | payer BC, MEDICARE, SELFPAY ==
[2023-09-17] VITALS (20 sets, daily range): BP systolic 103–129; BP diastolic 41–104; PULSE 60–68; RESP 11–28; TEMP 36.5; O2SAT 98
--- NOTE | 2023-09-17 11:45 | RT.EKG_ITS ---
APPROVED REPORT Exam: Resting ECG Reason for Exam: syncope Patient Location: E HR:64 bpm ECG Measurements Heart Rate 64 AXIS MT 223 P -10 QRSd 160 QRS -45 QT 450 T 92 QTc 465 Conclusion Sinus rhythm...normal P axis, V-rate 60- 99 Prolonged MT interval...MT >220, V-rate 50- 90 Left bundle branch block...QRSd>120, broad/notched R
[2023-09-17 12:27] LABS: Abs Immature Grans 0.05 10^3/uL (0.0-0.06); Absolute Basophil Count 0.02 10^3/uL (0.0-0.2); Absolute Eosinophil Count 0.13 10^3/uL (0.0-0.7); Absolute Lymphocyte Count 1.39 10^3/uL (1.2-3.4); Absolute Monocyte Count 0.44 10^3/uL (0.1-0.8); Absolute Neutrophil Count 5.53 10^3/uL (1.2-6.7); Basophils % 0.3 %; Eosinophils % 1.7 %; Immature Grans % 0.7 %; Lymphocytes % 18.4 %; MCH 29.5 pg (27.0-33.0); MCHC 31.3 % (32.0-36.0); MCV 94 fL (80-95); MPV 9.3 fL (8.0-11.0); Monocytes % 5.8 %; Neutrophils % 73.1 %; Platelet Count 126 10^3/uL (130-400); RBC 3.39 10^6/uL (4.36-5.78); RDW 14.2 % (11.8-14.1); RDW-SD 49.2 fL; WBC 7.56 10^3/uL (4.4-10.8)
--- NOTE | 2023-09-17 12:30 | DI.RAD_ITS ---
Exam(s) XR CHEST 2V PA LATERAL EXAM: XR CHEST 2V PA LATERAL CLINICAL HISTORY: cough. TECHNIQUE: 2D digital imaging was performed. COMPARISON: CR LEFT SHOULDER COMPLETE from 04/07/2016 CR PORTABLE CHEST ONE VIEW from 04/22/2016 CR CHEST 2 VIEWS PA,LAT from 05/04/2016 CR PORTABLE CHEST ONE VIEW from 06/06/2016 CR CHEST 2 VIEWS PA,LAT from 07/10/2016 CR CHEST 2 VIEWS PA,LAT from 08/07/2016 CT ABD PELVIS WO CONTRAST from 10/11/2016 CR CHEST 2 VIEWS PA,LAT from 10/11/2016 CR CHEST 2 VIEWS PA,LAT from 03/24/2017 FINDINGS: 2 views: There are sternotomy wires again noted. Heart size is normal. The mediastinum is not widened. Right lung remains clear. Left lower lobe retrocardiac densities are again noted. Has appearance of nodular infiltrates. However, this may be sequelae of infiltrate which is been on and off in this l ocation since 2017. There is presently no obvious pleural effusion as was previously present on mult iple prior chest x-rays. No pulmonary edema. IMPRESSION: Sternotomy wires. Heart size normal. No pulmonary edema. Persistent left lower lobe retrocardiac infiltrate. No obvious pleural effusion at this time. If cl inically indicated follow-up CT scan can be performed for added sensitivity and specificity. DATA REPOSITORY: RADIATION DOSE DELIVERED:
[2023-09-17 12:41] LABS: ALT 32 U/L (16-63); AST 21 U/L (15-37); Albumin 3.4 g/dL (3.4-5.0); Alkaline Phosphatase 108 U/L (46-116); Anion Gap 7.9 mmol/L (3-11); BUN 31 mg/dL (7-18); Bilirubin, Total 0.5 mg/dL (0.2-1.0); CO2 26.1 mmol/L (21.0-32.0); CREATININE 1.8 mg/dL (0.70-1.30); Calcium 9.5 mg/dL (8.5-10.1); Chloride 104 mmol/L (98-107); Estimated GFR 40.49 (mL/min/1.73m2); Glucose 113 mg/dL (74-106); Magnesium 1.5 mg/dL (1.8-2.4); Potassium 4.9 mmol/L (3.5-5.1); Sodium 138 mmol/L (136-145); Total Protein 6.9 g/dL (6.4-8.2); Troponin I < 50 ng/L (< or =60)
[2023-09-17] MEDS: Magnesium Oxide 400 MG TAB PO (13:17)
--- NOTE | 2023-09-17 13:34 | ED.GENADUL_ITS ---
Discharge Plan Disposition Patient Disposition: Home Discharge Details Clinical Impression: Acute bronchitis Primary Care Provider: Avery Abbott ED Provider: Davide Yan Home Meds and New Rx's Prescriptions: New doxycycline hyclate 100 mg capsule 100 mg PO BID Qty: 10 0RF benzonatate 100 mg capsule 100 mg PO TID PRN (Reason: cough) Qty: 30 0RF Continued clopidogrel [Plavix] 75 MG tablet 75 mg PO DAILY allopurinol 100 mg tablet 200 mg PO DAILY mycophenolate sodium 180 mg tablet,delayed release (DR/EC) 360 mg PO BID tacrolimus 1 mg capsule 3 mg PO DAILY citalopram 40 MG tablet 40 mg PO DAILY calcitriol 0.25 MCG capsule 0.25 mcg PO DAILY atorvastatin [Lipitor] 40 MG tablet 40 mg PO HS prochlorperazine maleate 10 mg tablet 1 tab PO TID PRN Patient Comments: TAKE ONE TABLET BY MOUTH EVERY 8 HOURS NEEDED FOR NAUSEA AND VOMITING carvedilol 3.125 mg tablet 3.125 mg PO BID Hold Instructions: Hold until nephrology advises to restart Patient Comments: TAKE ONE TABLET BY MOUTH TWICE A DAY levothyroxine 75 mcg tablet 75 mcg PO DAILY Patient Comments: TAKE ONE TABLET BY MOUTH EVERY DAY prednisone 5 mg tablet 5 mg PO DAILY Patient Comments: TAKE 1 TABLET BY MOUTH DAILY levetiracetam 500 mg Tablet 1,000 mg PO BID Qty: 0 0RF benzonatate 100 mg capsule 100 mg PO BID PRNQty: 7 0RF Discharge Instructions Instructions: Acute Bronchitis (ED) Additional Instructions: It is very important to stay well-hydrated and get plenty of rest during illness. Please continue to take your medication as prescribed along with the antibiotic. If you have any new or significant worsening of symptoms please return to the emergency department for reassessment otherwise keep your follow-up appointment with your primary care provider for recheck of your symptoms and any medication changes as needed. Referrals: Avery Abbott PA [Primary Care Provider] - 3 days (Keep your appointment as scheduled) Discharge Data Discharge Date/Time-TO BE ENTERED AT DEPARTURE: 09/17/23 13:46 HPI General Mode of arrival: ambulatory . Date/Time Provider Initiated Documentation: 09/17/23 11:57 . Limitations to Documentation: no limitations . Information obtained by: patient, family, RN notes reviewed and old records reviewed . History of Present Illness 67 year old M presents to the emergency department with the chief complaint of Cough with syncope, described as moderate and similar to prior episodes, Patient started experiencing this day(s) (3) and it has been intermittent. Medication improves symptom(s), No exacerbating factors reported . Patient notes malaise; denies fever/chills, headaches and nausea/vomiting. Patient did receive the following treatments prior to arrival, other (Joon Myers) Related Data Home Medications Medication Instructions Recorded Confirmed citalopram 40 mg tablet 40 mg PO DAILY 08/18/12 09/17/23 calcitriol 0.25 mcg capsule 0.25 mcg PO DAILY 02/25/13 09/17/23 atorvastatin 40 mg tablet (Lipitor) 40 mg PO HS 05/26/14 09/17/23 clopidogrel 75 mg tablet (Plavix) 75 mg PO DAILY 05/11/16 09/17/23 carvedilol 3.125 mg tablet 3.125 mg PO BID 10/08/21 09/17/23 levothyroxine 75 mcg tablet 75 mcg PO DAILY 10/08/21 09/17/23 prednisone 5 mg tablet 5 mg PO DAILY 10/08/21 09/17/23 levetiracetam 500 mg tablet 1,000 mg (2 x 500 mg) PO BID #0 10/11/21 09/17/23 tabs prochlorperazine maleate 10 mg 1 tab PO TID PRN 10/21/21 09/17/23 tablet allopurinol 100 mg tablet 200 mg PO DAILY 08/31/22 09/17/23 mycophenolate sodium 180 mg 360 mg PO BID 08/31/22 09/17/23 tablet,delayed release tacrolimus 1 mg capsule, 3 mg PO DAILY 08/31/22 09/17/23 immediate-release benzonatate 100 mg capsule 100 mg PO BID PRN #7 caps 09/14/23 09/17/23 benzonatate 100 mg capsule 100 mg PO TID PRN cough #30 caps 09/17/23 doxycycline hyclate 100 mg capsule 100 mg PO BID #10 caps 09/17/23 Previous Rx's Medication Instructions Recorded levetiracetam 500 mg tablet 1,000 mg (2 x 500 mg) PO BID #0 10/11/21 tabs benzonatate 100 mg capsule 100 mg PO BID PRN #7 caps 09/14/23 benzonatate 100 mg capsule 100 mg PO TID PRN cough #30 [facility] 09/17/23 doxycycline hyclate 100 mg capsule 100 mg PO BID #10 [facility] 09/17/23 Allergies Allergy/AdvReac Type Severity Reaction Status Date / Time levofloxacin Allergy Severe Other (See Unverified 09/17/23 11:51 Comment) sevelamer [From Renvela] Allergy Severe per pcp Unverified 09/17/23 11:51 list sodium bicarbonate Allergy Severe seizures Unverified 09/17/23 11:51 lisinopril Allergy Intermediate Hives Unverified 09/17/23 11:51 amoxicillin [From Augmentin] Allergy Other (See Unverified 09/17/23 11:51 Comment) clavulanic acid Allergy Other (See Unverified 09/17/23 11:51 [From Augmentin] Comment) gabapentin AdvReac Intermediate related to Unverified 09/17/23 11:51 dialysis furosemide [From Lasix] AdvReac Nausea Unverified 09/17/23 11:51 General Stated Complaint: [id number] MILAGROS: 3 Review of Systems Constitutional Constitutional: Denies chills, Denies fever(s), Denies headache(s) and Reports malaise ENT Ears, Nose, Mouth, and Throat: Denies headache(s), Denies nasal congestion, Denies nasal discharge and Denies sore throat Cardiovascular Cardiovascular: Denies chest pain, Reports syncope and Denies dyspnea Respiratory Respiratory: Reports cough, Denies excessive phlegm production, Denies dyspnea, Denies stridor and Denies wheezing Gastrointestinal Gastrointestinal: Denies abdominal pain, Denies nausea and Denies vomiting Neurologic Neurologic: Reports syncope, Denies headache(s), Denies localized weakness and Denies paresthesias Allergic/Immunologic Allergic/Immunologic: Denies wheezing Exam Const General: cooperative, comfortable and no acute distress Orientation: alert and awake [facility] Head: normal to inspection, normocephalic and atraumatic Ears: hearing grossly normal bilaterally General nose exam: external nose normal Face and sinus: no erythema Mouth: oral mucosae normal, no drooling, no muffled voice and no trismus Neck Neck: normal visual inspection, full ROM, no lymphadenopathy, no meningeal signs, trachea midline and supple Resp Effort & Inspection: normal respiratory effort, able to speak in complete sentences and cough Quality of cough: dry Auscultation: clear to auscultation bilaterally Cardio Rate: regular rate Rhythm: regular rhythm Heart Sounds: S1 normal, S2 normal, no click, no gallops, murmur (grade I-II) and no rubs Skin General skin exam: no rashes or lesions noted and dry skin (warm) Neuro General: patient alert, patient awake, patient oriented x3, gait normal and moves all extremities Cognition: normal cognition Speech: speech normal Course Vital Signs Vital signs: Vital Signs Temperature 36.5 C 09/17/23 11:52 Pulse 68 09/17/23 11:52 Respiratory Rate 16 09/17/23 11:52 Blood Pressure 126/104 H 09/17/23 11:52 Pulse Oximetry 98 09/17/23 11:52 Temperature 36.5 C 09/17/23 11:52 Temperature Source Temporal Artery Scan 09/17/23 11:52 Pulse 61 09/17/23 12:46 Pulse 61 09/17/23 13:10 Respiratory Rate 26 H 09/17/23 13:10 Respiratory Effort Normal 09/17/23 12:02 Respiratory Depth Normal 09/17/23 12:02 Respiratory Pattern Normal 09/17/23 12:02 Blood Pressure 115/44 L 09/17/23 12:46 Blood Pressure Mean 67 09/17/23 12:46 Blood Pressure Position Sitting 09/17/23 11:52 Pulse Oximetry 98 09/17/23 11:52 Oxygen Delivery Method Room Air 09/17/23 11:52 Oxygen Flow Rate 0 09/17/23 11:52 Pain Level 10 09/17/23 11:52 Comment feel 'blah all over' 09/17/23 11:52 Lab/Test Results Lab/Test Results: Laboratory Tests Range/Units 09/17/23 12:14 WBC (4.4-10.8) 10^3/uL 7.56 RBC (4.36-5.78) 10^6/uL 3.39 L Hgb (13.5-17.5) g/dL 10.0 L Hct (40.0-50.0) % 32.0 L MCV (80-95) fL 94 MCH (27.0-33.0) pg 29.5 MCHC (32.0-36.0) % 31.3 L RDW (11.8-14.1) % 14.2 H Plt Count (130-400) 10^3/uL 126 L MPV (8.0-11.0) fL 9.3 Immature Gran % % 0.7 Neutrophils % % 73.1 Lymphocytes % % 18.4 Monocytes % % 5.8 Eosinophils % % 1.7 Basophils % % 0.3 Nucleated RBC % (0.0-0.3) % 0.0 Absolute Neutrophils (1.2-6.7) 10^3/uL 5.53 Absolute Lymphocytes (1.2-3.4) 10^3/uL 1.39 Absolute Monocytes (0.1-0.8) 10^3/uL 0.44 Absolute Eosinophils (0.0-0.7) 10^3/uL 0.13 Absolute Basophils (0.0-0.2) 10^3/uL 0.02 Sodium (136-145) mmol/L 138 Potassium (3.5-5.1) mmol/L 4.9 Chloride (98-107) mmol/L 104 Carbon Dioxide (21.0-32.0) mmol/L 26.1 Anion Gap (3-11) mmol/L 7.9 BUN (7-18) mg/dL 31 H Creatinine (0.70-1.30) mg/dL 1.8 H Est GFR (CKD-EPI 2020) (mL/min/1.73m2) 40.49 Glucose (74-106) mg/dL 113 H Calcium (8.5-10.1) mg/dL 9.5 Magnesium (1.8-2.4) mg/dL 1.5 L Total Bilirubin (0.2-1.0) mg/dL 0.5 AST (15-37) U/L 21 ALT (16-63) U/L 32 Alkaline Phosphatase (46-116) U/L 108 Troponin I (< or =60) ng/L < 50 Total Protein (6.4-8.2) g/dL 6.9 Albumin (3.4-5.0) g/dL 3.4 Medical Decision Making Patient presenting to the emergency department for chief complaint of prottu ssive syncope. Patient reports that he has had cold-like symptoms for the last 3 weeks but started having worsening cough on and was seen here in the emergency department and had full workup that was negative and sent home with Tessalon Perles. Patient does report that these have been helping symptoms but today had another episode of syncope. Patient denies any chest pain, shortness of breath rapid heart rate or other symptoms and states this is exactly what has been happening. Physical exam shows clear lung sounds, no tachypnea, no tachycardia, very subtle murmur is appreciated that has been documented in the past otherwise unremarkable HEENT exam. I suspect syncope secondary to coughing episodes but will repeat labs and chest x-ray. Patient does state he took a Tessalon Perle just prior to arrival. Review of labs show a chronic but stable anemia, no significant leukocytosis, CMP stable with no significant changes from 1 previously done. There is improvement of subtle hyperkalemia that was present on last visit. Magnesium is low at 1.5 which will orally replete. Chest x-ray shows chronic but stable atelectasis versus pneumonia of left lower lung. This has been present for quite a while so I do not think this is an acute pneumonia. Given that patient is a renal transplant patient on immunosuppressants with weeks of symptoms and symptoms not improving if not slightly worsening the cough will place patient on doxycycline. Will also prescribe more Tessalon Perles. Patient has follow-up already arranged for Monday of this week which is appropriate. After discussion of diagnosis and plan of care patient has no further needs, questions, or concerns and states clear understanding to return to the emergency department for any worsening symptoms. This documentation was generated using [employer] dictation system, please disregard any oddities of phrase or misspellings. Imaging Data Radiologic Study: Imaging: X-Ray Radiologist's impression: Exam(s) PROCEDURE INFORMATION: Exam: XR Chest Exam date and time: 09/17/2023 12:55 PM Age: 67 years old Clinical indication: Other: Cough TECHNIQUE: Imaging protocol: Radiologic exam of the chest. Views: 2 views. COMPARISON: CR XR CHEST 2V PA LATERAL 09/14/2023 2:50 PM FINDINGS: Lungs: Left lower lobe stable atelectasis/pneumonia. Pleural spaces: Unremarkable. No pleural effusion. No pneumothorax. Heart/Mediastinum: CABG. Cardiomegaly. Bones/joints: Right shoulder prosthesis. Median sternotomy wires. IMPRESSION: Persistent left lower lobe atelectasis/pneumonia. Dictated and Authenticated by: Robson Hansen MD. Lab Data Lab results reviewed: Yes I reviewed the patient's lab results. Quality:SDOH Health Related Social Needs: 2 No Data to Display PFSH All Active Problems Acute bronchitis (Acute) Hyperkalemia (Acute) Cough (Acute) Systolic murmur (Acute) Post-tussive syncope (Acute) Arthritis of right glenohumeral joint (Acute) Rotator cuff tear arthropathy of right shoulder (Acute) Pancytopenia (Acute) Colonoscopy - MAC (Acute 12/03/15) Medical History Complete tear of left rotator cuff (06/24/16) Tubular adenoma of colon (12/23/15) IgA nephropathy Renal failure Seizure disorder Obstructive sleep apnea Depression Gout Hx of hyperlipidemia HTN (hypertension) Coronary artery disease Surgical History History of eye surgery History of coronary artery stent placement Hx of CABG Kidney transplant recipient Social History Smoking/Tobacco Use Status: Never Smoking risk assessment performed?: Yes Alcohol Intake: never Drug use: Never Substance use type: does not use Housing: house Do you feel safe at home: Yes Do you feel safe in your relationship?: Yes
--- NOTE | 2023-09-17 13:47 | DI.VRAD_ITS ---
PROCEDURE INFORMATION: Exam: XR Chest Exam date and time: 09/17/2023 12:55 PM Age: 67 years old Clinical indication: Other: Cough TECHNIQUE: Imaging protocol: Radiologic exam of the chest. Views: 2 views. COMPARISON: CR XR CHEST 2V PA LATERAL 09/14/2023 2:50 PM FINDINGS: Lungs: Left lower lobe stable atelectasis/pneumonia. Pleural spaces: Unremarkable. No pleural effusion. No pneumothorax. Heart/Mediastinum: CABG. Cardiomegaly. Bones/joints: Right shoulder prosthesis. Median sternotomy wires. IMPRESSION: Persistent left lower lobe atelectasis/pneumonia. Dictated and Authenticated by: Robson Hansen MD. Ordering:ELISABET Augustine MD
== END 2023-09-17 13:46 | disposition home or self-care (01) ==
PROVIDERS: Emergency Provider Nurse Practitioner Family; PCP Physician Assistant
DX: J20.9 Acute bronchitis, unspecified (principal); R55 Syncope and collapse; N02.B1 Recurrent and persistent immunoglobulin A nephropathy with glomerular lesion; I10 Essential (primary) hypertension; E78.5 Hyperlipidemia, unspecified; I25.10 Atherosclerotic heart disease of native coronary artery without angina pectoris; Z95.1 Presence of aortocoronary bypass graft; Z95.5 Presence of coronary angioplasty implant and graft; Z94.0 Kidney transplant status; Z79.60 Long term (current) use of unspecified immunomodulators and immunosuppressants; Z79.02 Long term (current) use of antithrombotics/antiplatelets
CPT/HCPCS: 80053; 93005; 99285; 71046; 83735; 84484; 85025; 93010; 99284

== ENCOUNTER → 2023-10-06 02:08 | Outpatient (CLI) | payer BC, MEDICARE, SELFPAY ==
--- NOTE | 2023-10-06 13:05 | DI.US_ITS ---
APPROVED REPORT EXAM: Comprehensive 2D, Doppler, and color-flow Echocardiogram Patient Location: Out-Patient Peanut Sorter: Maggie Garsia RT (R) (CT) [facility] [[email or web address]] Rhythm: NSR Indications: Heart murmur. Other Information Study Quality: Adequate Conclusion Normal left ventricular wall thickness and chamber size. Ejection fraction is 60 to 65%. Wall motio n is normal Mildly dilated right ventricle Mildly dilated right atrium. Normal left atrial size Aortic valve is thickened and trileaflet. There is mild aortic stenosis. Mean gradient is 13 mmHg. Calculated aortic valve area is 2.1 cm??. There is no aortic regurgitation Minimally thickened mitral leaflets with trace regurgitation Right ventricular systolic pressure could not be estimated Wall motion Left Ventricle The left ventricle is normal size. The left ventricular systolic function is normal. There is normal left ventricular wall thickness. There is normal LV segmental wall motion. Diastolic indices are norm al for age, no evidence of elevated left sided filling pressure. There is no ventricular septal defec t visualized. LVEF is 60-65%. Right Ventricle Right ventricle is mildly dilated. The right ventricular systolic function is normal. Atria The left atrium size is normal. Right atrium is mildly dilated. The interatrial septum is intact with no evidence for an atrial septal defect. Aortic Valve Aortic valve is trileaflet. Aortic valve leaflets are mildly thickened. Mild aortic stenosis. Calcula [place] STEPHANIE by the continuity equation is 2.1 cm2. Peak aortic valve gradient is 23.5 mmHg. Highest mean aortic valve gradient is 13 mmHg. AV Vmax = 2.42 m/s. No aortic regurgitation is present. Mitral Valve The mitral valve leaflets are minimally thickened with posterior annular calcification. No evidence o f mitral valve stenosis. There is trivial mitral regurgitation. Tricuspid Valve The tricuspid valve is normal in structure. There is no tricuspid valve stenosis. Trivial tricuspid r egurgitation. No pulmonary hypertension. Pulmonic Valve The pulmonary valve is normal in structure. There is no pulmonic valvular stenosis. Trace pulmonic re gurgitation. Great Vessels The aortic root is normal in size. The pulmonary artery is normal. The ascending aorta is normal in s ize. IVC is normal in size and collapses >50% with inspiration. Pericardium There is no pericardial effusion. 2D Dimensions IVSD d PLAX 0.94 cm M: 0.6-1.2 Ao Root d 3.37 cm M: 3.1 - 3.7 LVPW d PLAX 1.13 cm M: 0.6 - 1.2 Ao Asc Diam d 3.11 cm M: 2.6 - 3.4 LVID d PLAX 6.41 cm M: 4.2 - 5.8 Prox Ao Arch 3.1 cm LVDs 4.26 cm M: 2.5 - 4.0 IVC Diam exp d SLAX 1.4 cm LV EF Teichholz 61.0 % FS 33.45 % LV EDV (Teich) 208.9 mL LV ESV (Teich) 81.4 mL M-Mode TAPSE 2.19 cm (M/F) >1.7 Auto EF LV EDV A4C 183.3 mL LV EDV A2C 160.0 mL LV EDV BP 172.0 mL LV ESV A4C 104.9 mL LV ESV A2C 71.0 mL LV ESV BP 91.0 mL LVEF(%) A4C 42.8 % LVEF(%) A2C 55.6 % LVEF(%) BP 47.1 % LV SV A4C 78.4 ml LV SV A2C 89.0 ml LV SV BP 81.0 ml LV CO A4C 4.9 L/min LV CO A2C 5.4 L/min LV CO BP 5.2 L/min HR A4C 62.50 BPM HR A2C 61.02 BPM LV EDV Index (BP) LV Strain Long Pk Overal Avg (s) 14.07 LA Volume LA Length A4C 5.6 cm LA Length A2C 5.7 cm LA Area A4C s 21.72 cm2 LA Area A2C s 22.52 cm2 LA Vol A4C A-L 71.75 mL LA Vol A2C A-L 75.55 mL LA Vol Biplane A-L 74.4 mL LA Vol/BSA A4C A-L LA Vol/BSA A2C A-L LA Vol/BSA BP A-L 32.3 mL/m2 LA Vol A4C MOD 68.6 mL LA Vol A2C MOD 73.7 mL LA Vol BP MOD 71.7 mL LV Diastology MV E' medial 0.068 (>0.07 m/s) MV E Vmax 1.06 (0.4-1.3 m/s) MV E/E' MED 15.62 (<14) MV A Vmax 1.00 (0.4-1.3 m/s) MV E' lateral 0.106 (>0.1 m/s) E/A Ratio 1.1 MV E/E' LAT 9.96 (<14) MV E' Average 0.087 m/s MV E/E'(average) 12.16 Aortic Valve AoV Vmax 2.42 m/s LVOT Vmax 1.10 m/s AoV Peak Grad 23.5 mmHg LVOT Peak Grad 4.9 mmHg AoV Area (Vmax) 2.12 cm2 LVOT VTI 0.247 m AoV VTI 0.536 m LVOT Mean Grad 2.2 mmHg AoV Mean Jason. 1.72 m/s LVOT SV 115.18 mL AoV Mean Grad 13.0 mmHg LVOT Diam s 2.40 cm AoV Area (VTI) 2.15 cm2 Velocity Ratio 0.45 Mitral Valve MV DT 210 (160-240 msec) MV Vmax TIPS 1.15 m/s MV Mean Grad 1.8 (<2mmHg) MV VTI 0.423 m Pulm Vein s 0.53 m/s Pulm Vein d 0.62 m/s Pulm Vein a 0.22 m/s Pulmonary Valve RVOT Vmax 0.83 m/s RVOT Peak Gr. 2.7 mmHg RVOT VTI 0.185 m RVOT Mean Gr. 1.4 mmHg Tricuspid Valve RA Pressure 3.00 mmHg TR Vmax 2.59 m/s TV S' 0.13 m/s TR Peak Grad 26.8 mmHg RVSP (TR) 29.9 mmHg
== END ==
PROVIDERS: PCP Physician Assistant; Visit Provider Physician Assistant Medical
DX: R01.1 Cardiac murmur, unspecified (principal)
CPT/HCPCS: 93306

== ENCOUNTER 2024-05-06 11:13 | Outpatient (CLI) | payer MEDICARE, OTHER, SELFPAY ==
[2024-05-06 11:01] LABS: BUN 24 mg/dL (7-18); CREATININE 1.5 mg/dL (0.70-1.30); Calcium 9.6 mg/dL (8.5-10.1); Chloride 106 mmol/L (98-107); Estimated GFR 50.08 (mL/min/1.73m2); Glucose 103 mg/dL (74-106); Potassium 4.4 mmol/L (3.5-5.1); Sodium 142 mmol/L (136-145)
== END 2024-05-06 11:14 | disposition home or self-care (01) ==
LOC: LBO 11:14
PROVIDERS: PCP Physician Assistant; Visit Provider Nurse Practitioner Adult Health
DX: E87.5 Hyperkalemia (principal); Z96.612 Presence of left artificial shoulder joint
CPT/HCPCS: 36415; 80048

== ENCOUNTER 2024-08-31 11:14 | Observation (INO) | payer OTHER, MEDICARE, SELFPAY ==
[2024-08-31] VITALS (18 sets, daily range): BP systolic 109–170; BP diastolic 35–72; PULSE 20–67; RESP 14–21; TEMP 35.6–36.8; O2SAT 93–100
--- NOTE | 2024-08-31 11:15 | RT.EKG_ITS ---
APPROVED REPORT Exam: Resting ECG Reason for Exam: dizziness Patient Location: E HR:59 bpm ECG Measurements Heart Rate 59 AXIS SD 271 P 9 QRSd 154 QRS -51 QT 436 T 114 QTc 429 Conclusion Sinus bradycardia...rate< 60 Atrial premature complex...SV complex w/ short R-R interval Prolonged SD interval...SD >220, V-rate 50- 90 Left bundle branch block...QRSd>120, broad/notched R No Occlusion RI
--- NOTE | 2024-08-31 11:23 | W.ED.GENAD ---
Discharge Plan Disposition Patient Disposition: Admit to [facility] Discharge Details Clinical Impression: Left facial numbness Primary Care Provider: Avery Abbott ED Provider: Marty Novak [place] Meds and New Rx's Prescriptions: No Action clopidogrel [Plavix] 75 MG tablet 75 mg PO DAILY allopurinol 100 mg tablet 200 mg PO DAILY mycophenolate sodium 180 mg tablet,delayed release (DR/EC) 360 mg PO BID tacrolimus 1 mg capsule 3 mg PO DAILY citalopram 40 MG tablet 40 mg PO DAILY calcitriol 0.25 MCG capsule 0.25 mcg PO DAILY atorvastatin [Lipitor] 40 MG tablet 40 mg PO HS prochlorperazine maleate 10 mg tablet 1 tab PO TID PRN Patient Comments: TAKE ONE TABLET BY MOUTH EVERY 8 HOURS NEEDED FOR NAUSEA AND VOMITING doxycycline hyclate 100 mg capsule 100 mg PO BID Qty: 10 0RF benzonatate 100 mg capsule 100 mg PO TID PRN (Reason: cough) Qty: 30 0RF aspirin [Adult Low Dose Aspirin] 81 mg tablet,delayed release (DR/EC) 81 mg PO DAILY carvedilol 3.125 mg tablet 3.125 mg PO BID Patient Comments: TAKE ONE TABLET BY MOUTH TWICE A DAY levothyroxine 75 mcg tablet 75 mcg PO DAILY Patient Comments: TAKE ONE TABLET BY MOUTH EVERY DAY prednisone 5 mg tablet 5 mg PO DAILY Patient Comments: TAKE 1 TABLET BY MOUTH DAILY levetiracetam 500 mg Tablet 1,000 mg PO BID Qty: 0 0RF benzonatate 100 mg capsule 100 mg PO BID PRNQty: 7 0RF HPI General Date/Time Provider Initiated Documentation: 08/31/24 11:23. HPI Narrative: [facility] This is an overall very well-appearing normothermic, not tachycardic male with 2 chief complaints. Concern the patient's left facial numbness I am concerned for the possibility of TIA versus CVA. Patient will undergo CT angiogram of his head and neck and neurological consult. No tonic-clonic activity to suggest seizures no indication for EE. No nuchal rigidity to suggest meningitis so no indication for lumbar puncture. No recent chiropractic manipulation to suggest cervical arterial dissection. No sore throat to suggest retropharyngeal abscess. No rash to face to suggest zoster. No headache to suggest hemorrhage. No trauma or injury exposure to suggest carbon monoxide toxicity. No dental pain to suggest odontogenic infection. Patient has right upper quadrant pain concerning for the possibility of acute cholecystitis for which patient will undergo formal radiology right upper quadrant ultrasound. Ureterolithiasis is also on the differential and if ultrasound is reassuring we will proceed to CT abdomen pelvis to assess for ureterallithiasis. No right lower quadrant tenderness to suggest acute cholecystitis. No fevers nor diarrhea to suggest diverticulitis. 3 PM I spoke with Dr. Limon from neurology who advised hospitalization and treatment with 300 mg of clopidogrel given that patient is on 81 daily milligrams aspirin. We discussed that I would not be able to get a brain MRI until Monday. He did not feel the patient required emergent transfer for MRI. I met with the patient who is amenable to staying overnight. Will obtain ultrasound and reach out to the hospitalist team. CBC with mild persistent normocytic anemia. No thrombocytopenia nor leukocytosis. No SOLOMON. No acute LFT abnormalities. Normal lipase. Reassuring troponin. Patient has not been vomiting so I am not concerned for him getting his tacrolimus nor his mycophenolate. I do not feel that his abdominal pain represents organ rejection as he is not having fevers. 4:35 PM I met with the patient. He had had no more abdominal pain. His ultrasound was reassuring against acute cholecystitis. Given that he is not having any persistent abdominal pain I am not suspicious for acute cholecystitis nor ureterolithiasis. Will defer CT scan at this point in time. 5 PM I spoke with Dr. Whatley who graciously agreed to accept the patient for hospitalization. HPI This is a 68-year-old male with remote history of renal transplant arrives emerged part via private vehicle with his in setting of left facial numbness. Patient notes that his symptoms began this morning at approximately 8:15 AM. He also notes that he has had some abdominal pain on the right. He denies chest pain nausea vomiting shortness of breath. He has not taken any recent falls. No fevers. He has a history of hyperlipidemia but no history of diabetes nor HTN. Exam General: Well-appearing in no acute distress speaking in complete sentences. Head: Normocephalic, atraumatic. Eye:[Pupils equal, round reactive to light.] Extraocular eye movements intact. No conjunctival injection. No scleral icterus. Ear, nose, mouth, throat: Grossly normal inspection. Normal voice, handling secretions normally. Neck: Trachea midline. Cardiovascular: Well-perfused distal extremities. Respiratory: Nonlabored respiration. Gastrointestinal: Nondistended abdomen. Right upper quadrant tenderness. No rebound. No guarding. No rash to abdomen. Musculoskeletal: No edema. Moving all 4 extremities spontaneously. Skin: Normal for age and race, grossly normal temperature and turgor. No acute rash. Neurologic: Alert and appropriate, no apparent acute deficits. Patient has left-sided decreased sensation V1 through V3 at 50% compared to contralateral. Otherwise cranial nerves II through XII intact. No pronator drift. No dysmetria nor dysdiadochokinesia. Psychiatric: Mood and manner are appropriate. Grooming and personal hygiene are appropriate. Related Data Home Medications ?Medication ?Instructions ?Recorded ?Confirmed citalopram 40 mg tablet 40 mg PO DAILY 08/18/12 08/31/24 calcitriol 0.25 mcg capsule 0.25 mcg PO DAILY 02/25/13 08/31/24 atorvastatin 40 mg tablet (Lipitor) 40 mg PO HS 05/26/14 08/31/24 clopidogrel 75 mg tablet (Plavix) 75 mg PO DAILY 05/11/16 08/31/24 carvedilol 3.125 mg tablet 3.125 mg PO BID 10/08/21 08/31/24 levothyroxine 75 mcg tablet 75 mcg PO DAILY 10/08/21 08/31/24 prednisone 5 mg tablet 5 mg PO DAILY 10/08/21 08/31/24 levetiracetam 500 mg tablet 1,000 mg (2 x 500 mg) PO BID #0 10/11/21 08/31/24 tabs prochlorperazine maleate 10 mg 1 tab PO TID PRN 10/21/21 08/31/24 tablet allopurinol 100 mg tablet 200 mg PO DAILY 08/31/22 08/31/24 mycophenolate sodium 180 mg 360 mg PO BID 08/31/22 08/31/24 tablet,delayed release tacrolimus 1 mg capsule, 3 mg PO DAILY 08/31/22 08/31/24 immediate-release benzonatate 100 mg capsule 100 mg PO BID PRN #7 caps 09/14/23 08/31/24 benzonatate 100 mg capsule 100 mg PO TID PRN cough #30 caps 09/17/23 08/31/24 doxycycline hyclate 100 mg capsule 100 mg PO BID #10 caps 09/17/23 08/31/24 aspirin 81 mg tablet,delayed 81 mg PO DAILY 08/31/24 08/31/24 release (Adult Low Dose Aspirin) Previous Rx's ?Medication ?Instructions ?Recorded levetiracetam 500 mg tablet 1,000 mg (2 x 500 mg) PO BID #0 10/11/21 tabs benzonatate 100 mg capsule 100 mg PO BID PRN #7 caps 09/14/23 benzonatate 100 mg capsule 100 mg PO TID PRN cough #30 caps 09/17/23 doxycycline hyclate 100 mg capsule 100 mg PO BID #10 caps 09/17/23 Allergies Allergy/AdvReac Type Severity Reaction Status Date / Time levofloxacin Allergy Severe Other (See Verified 08/31/24 11:39 Comment) sevelamer (From Renvela) Allergy Severe per pcp Verified 08/31/24 11:39 list sodium bicarbonate Allergy Severe seizures Verified 08/31/24 11:39 lisinopril Allergy Intermediate Hives Verified 08/31/24 11:39 amoxicillin (From Augmentin) Allergy Other (See Verified 08/31/24 11:39 Comment) clavulanic acid (From Allergy Other (See Verified 08/31/24 11:39 Augmentin) Comment) gabapentin AdvReac Intermediate related to Verified 08/31/24 11:39 dialysis furosemide (From Lasix) AdvReac Nausea Verified 08/31/24 11:39 General MILAGROS: 3 Medical Decision Making Quality:SDOH Health Related Social Needs: No Data to Display PFSH All Active Problems Left facial numbness (Acute) Arthritis of right glenohumeral joint (Acute) Rotator cuff tear arthropathy of right shoulder (Acute) Pancytopenia (Acute) Colonoscopy - MAC (Acute 12/03/15) Medical History Complete tear of left rotator cuff (06/24/16) Tubular adenoma of colon (12/23/15) IgA nephropathy Renal failure Seizure disorder Obstructive sleep apnea Depression Gout Hx of hyperlipidemia HTN (hypertension) Coronary artery disease Surgical History History of eye surgery History of coronary artery stent placement Hx of CABG Kidney transplant recipient Social History Smoking/Tobacco Use Status: Never Smoking risk assessment performed?: Yes Alcohol Intake: current Alcohol Intake frequency: holidays/special occasions only Alcohol type: hard liquor Drug use: Never Substance use type: does not use Housing: house Do you feel safe at home: Yes Do you feel safe in your relationship?: Yes
--- NOTE | 2024-08-31 11:45 | DI.CT_ITS ---
Exam(s) CT BRAIN NECK CTA EXAM: CT BRAIN NECK CTA CLINICAL HISTORY: Left facial numbness. TECHNIQUE: Imaging Protocol: Axial CT angiography was performed with multi-slice acquisition and mu lti-planar and MIP reconstructions. CONTRAST MATERIAL: Intravenous: Omnipaque 350 Contrast volume:7 ml COMPARISON: CT CT HEAD WO from 09/03/2018 FINDINGS: CT Head W/O and W contrast: Ventricles and Extra axial spaces: Normal in size and morphology for the patient's age. Hemorrhage: None. Cerebral parenchyma: No evidence of acute infarct or mass. Mild atrophy. Midline shift: None. Brainstem/Cerebellum: Small linear branching area of enhancement in the right cerebellum may represen t a developmental venous anomaly. Prior exam was noncontrast. Calvarium: Right parietal cranium Visualized Paranasal sinuses/Mastoids: Mucous retention cyst in right maxillary sinus. Soft Tissues: Unremarkable. CTA Brain W: Internal Carotid Arteries: Mural calcification but no significant stenosis bilateral. Middle Cerebral Arteries: Right: No aneurysm, occlusion or significant stenosis. Left: No aneurysm, occlusion or significant stenosis. Anterior Cerebral Arteries: Right: No aneurysm, occlusion or significant stenosis. Left: No aneurysm, occlusion or significant stenosis. Posterior cerebral Arteries: Right: No aneurysm, occlusion or significant stenosis. Left: No aneurysm, occlusion or significant stenosis. Vertebral Arteries: Right: No aneurysm, occlusion or significant stenosis. Left: No aneurysm, occlusion or significant stenosis. Basilar Artery: No aneurysm, occlusion or significant stenosis. CTA Neck W: Exam somewhat limited by streak artifact in the upper chest due to bilateral shoulder prostheses. Common Carotid: Calcified plaque at the common carotid bulbs and proximal internal carotid artery wit h less than 50 percent stenosis. Right: No dissection, occlusion or significant stenosis. Left: No dissection, occlusion or significant stenosis. External Carotid: Right: No dissection, occlusion or significant stenosis. Left: No dissection, occlusion or significant stenosis. Internal Carotid: Right: No dissection, occlusion or significant stenosis. Left: No dissection, occlusion or significant stenosis. Vertebral Artery: Right: No dissection, occlusion or significant stenosis. Left: No dissection, occlusion or significant stenosis. Lung Apices: Minimal patchy densities in the right upper lobe, nonspecific. Bones: No acute abnormality. Degenerative changes. Sternal wires. Soft Tissues: Normal. IMPRESSION: 1. CTA brain: Normal CTA examination of the [place]. 2. Head CT: No acute abnormality. Small venous angioma in the right cerebellum. 3. CTA neck: Mild calcification at common carotid bulb and proximal internal carotid arteries without significant stenosis. Vertebral arteries are normal in diameter. RADIATION DOSE DELIVERED: Total DLP DATA REPOSITORY: All CT scans at this facility are submitted to the National Radiology Data Registry (NRDR) Dose Index Registry (DIR) with the [employer] (A[employer]). RADIATION OPTIMIZATION: All CT scans at this facility use at least one of these dose optimization te chniques: automated exposure control; mA and/or kV adjustment per patient size (includes targeted exa ms where dose is matched to clinical indication); or iterative reconstruction.
--- NOTE | 2024-08-31 11:45 | DI.US_ITS ---
Exam(s) US ABDOMEN LIMITED EXAM: US ABDOMEN LIMITED CLINICAL HISTORY: Right upper quadrant pain TECHNIQUE: Ultrasound abdomen performed using standard protocol. COMPARISON: CT ABD PELVIS WO CONTRAST from 10/11/2016 FINDINGS: Exam somewhat limited by patient body habitus. LIVER: Mildly enlarged at 16.1 cm in length.. Increased echogenicity, consistent with hepatic steato sis.. No focal liver lesions are seen.. GALLBLADDER: No evidence of cholelithiasis. No evidence of wall thickening. No pericholecystic fluid identified. RENTERIA'S SIGN: Negative. BILIARY SYSTEM: No intrahepatic or extrahepatic biliary ductal dilation. RIGHT KIDNEY: [place] right kidney is atrophic and shows increased echogenicity. Right lower quadrant renal transplant appears normal in size and shows normal parenchymal thickness. No hydronephrosis o r stones are identified. PANCREAS: Normal where visualized. ABDOMINAL AORTA AND IVC: Visualized portions normal caliber. ASCITES: None seen. IMPRESSION: Hepatic steatosis. Normal appearing gallbladder. Right lower quadrant renal transplant appears normal. DATA REPOSITORY:
--- NOTE | 2024-08-31 11:45 | DI.RAD_ITS ---
Exam(s) XR CHEST 1V IN DI DEPT EXAM: XR CHEST 1V IN DI DEPT CLINICAL HISTORY: Left facial numbness TECHNIQUE: 2D digital imaging was performed. COMPARISON: CR,XR XR CHEST 2V PA LATERAL from 09/17/2023 FINDINGS: LUNGS: Clear. No pleural abnormality seen. HEART: Enlarged, unchanged. Coronary artery stent. AORTA: Normal diameter. BONES: Bilateral shoulder prostheses. Sternal wires Soft tissues: Unremarkable. IMPRESSION: No acute findings. DATA REPOSITORY: RADIATION DOSE DELIVERED:
[2024-08-31 12:31] LABS: Abs Immature Grans 0.05 10^3/uL (0.0-0.06); Absolute Basophil Count 0.02 10^3/uL (0.0-0.2); Absolute Lymphocyte Count 1.63 10^3/uL (1.2-3.4); Absolute Monocyte Count 0.39 10^3/uL (0.1-0.8); Absolute Neutrophil Count 4.07 10^3/uL (1.2-6.7); Basophils % 0.3 %; Eosinophils % 1.6 %; HCT 35.2 % (40.0-50.0); HGB 10.7 g/dL (13.5-17.5); Immature Grans % 0.8 %; MCHC 30.4 % (32.0-36.0); MCV 95 fL (80-95); MPV 9.2 fL (8.0-11.0); Monocytes % 6.2 %; Neutrophils % 65.1 %; Platelet Count 112 10^3/uL (130-400); RBC 3.69 10^6/uL (4.36-5.78); RDW 14.6 % (11.8-14.1); RDW-SD 50.9 fL; WBC 6.26 10^3/uL (4.4-10.8)
[2024-08-31 12:59] LABS: ALT 25 U/L (16-63); AST 22 U/L (15-37); Albumin 3.5 g/dL (3.4-5.0); Alkaline Phosphatase 121 U/L (46-116); Anion Gap 5.9 mmol/L (3-11); BUN 22 mg/dL (7-18); Bilirubin, Total 0.4 mg/dL (0.2-1.0); CO2 26.1 mmol/L (21.0-32.0); CREATININE 1.7 mg/dL (0.70-1.30); Calcium 9.6 mg/dL (8.5-10.1); Chloride 106 mmol/L (98-107); Glucose 134 mg/dL (74-106); Lipase 22 U/L (<78); Potassium 5.1 mmol/L (3.5-5.1); Sodium 138 mmol/L (136-145); Total Protein 6.7 g/dL (6.4-8.2); Troponin I 17 ng/L (<or=76)
[2024-08-31] MEDS: Normal Saline - Diluent 50 ML VIAL IJ (13:32)
[2024-08-31] MEDS: Omnipaque 350 MG/ML 100 ML BTL IJ (13:33)
[2024-08-31 14:20] LABS: Troponin I 16 ng/L (<or=76)
[2024-08-31] MEDS: Normal Saline 500 ML 1000 ML IV (14:38)
--- NOTE | 2024-08-31 14:49 | DI.VRAD_ITS ---
PROCEDURE INFORMATION: Exam: XR Chest Exam date and time: 08/31/2024 2:04 PM Age: 68 years old Clinical indication: Other: Left facial numbness TECHNIQUE: Imaging protocol: Radiologic exam of the chest. Views: 1 view. COMPARISON: CR XR CHEST 2V PA LATERAL 09/17/2023 12:55 PM FINDINGS: Lungs: Unremarkable. No consolidation. Pleural spaces: Unremarkable. No pleural effusion. No pneumothorax. Heart/Mediastinum: Cardiomegaly Bones/joints: Right shoulder arthroplasty. Median sternotomy IMPRESSION: No acute findings. No focal consolidation Dictated and Authenticated by: Bang Jacobs MD. Orderin Kishore Ferguson MD
--- NOTE | 2024-08-31 15:15 | DI.VRAD_ITS ---
PROCEDURE INFORMATION: Exam: CTA Head Without And With Contrast, Arteriography Exam date and time: 08/31/2024 1:33 PM Age: 68 years old Clinical indication: Other: Left facial numbness TECHNIQUE: Imaging protocol: Computed tomographic angiography of the head without and with contrast. Exam focused on the arteries. 3D rendering (Not supervised by radiologist): MIP and/or 3D reconstructed images were created by the technologist. Radiation optimization: All CT scans at this facility use at least one of these dose optimization techniques: automated exposure control; mA and/or kV adjustment per patient size (includes targeted exams where dose is matched to clinical indication); or iterative reconstruction. Contrast material: OMNI 350; Contrast volume: 70 ml; Contrast route: INTRAVENOUS (IV); COMPARISON: CT BRAIN NECK CTA 09/01/2018 11:41 AM FINDINGS: Unenhanced images of the brain demonstrate no acute intracranial hemorrhage or abnormal intracranial mass effect. No acute or recurrent subdural collections. Very small focus of decreased attenuation involving right parietal cortex by amorphous very small focus of encephalomalacia. Mild generalized volume loss with associated mild prominence of ventricles and sulci. No midline shift. Incidental note of large mucous retention cyst right maxillary sinus. Interval right parietal craniotomy and evacuation of right frontoparietal subdural collection since prior exam in 2019. Internal carotid: Bilateral carotid siphon atherosclerotic calcifications without evidence of severe stenosis. Anterior cerebral: Proximal anterior cerebral arteries bilaterally are patent without evidence of flow-limiting stenosis. Middle cerebral: Bilateral proximal middle cerebral arteries are patent without flow-limiting stenosis or occlusion. There is grossly symmetric appearance of branch vessels within the sylvian fissures. Posterior cerebral: Bilateral proximal posterior cerebral arteries are patent without flow-limiting stenosis or occlusion. . Vertebrobasilar: Basilar artery is patent without flow-limiting stenosis. Intracranial segments of both vertebral arteries are patent without flow-limiting stenosis. Venous sinuses: Major dural venous sinuses are patent without evidence of thrombus. Small branching focus of enhancement inferior right cerebellum (series 10, images [id number]). Appearance favors DVA, but it was not obviously present on 09/01/2018 exam. Therefore, follow-up might be considered; if MRI is not feasible, consider a CT with contrast in 6-8 weeks to confirm stability. IMPRESSION: 1. CTA head demonstrates no intracranial large vessel occlusion or flow-limiting stenosis. 2. Small right inferior cerebellar DVA? 3. No acute intracranial hemorrhage or mass effect. PROCEDURE INFORMATION: Exam: CTA Neck Without And With Contrast Exam date and time: 08/31/2024 1:33 PM Age: 68 years old Clinical indication: Other: Left facial numbness TECHNIQUE: Imaging protocol: Computed tomographic angiography of the neck without and with contrast. Exam focused on the cervical segments of the vasculature. 3D rendering (Not supervised by radiologist): MIP and/or 3D reconstructed images were created by the technologist. Radiation optimization: All CT scans at this facility use at least one of these dose optimization techniques: automated exposure control; mA and/or kV adjustment per patient size (includes targeted exams where dose is matched to clinical indication); or iterative reconstruction. Contrast material: OMNI 350; Contrast volume: 70 ml; Contrast route: INTRAVENOUS (IV); COMPARISON: CR XR CERVICAL SPINE COMP 4-5V 10/08/2021 9:09 AM FINDINGS: Aortic arch: No significant stenosis of the great vessels at their origins from the aortic arch. Right carotid: Right common, internal, and external carotid arteries in the neck show no flow-limiting stenosis or occlusion or evidence of dissection. Moderate calcified plaque at the bifurcation and proximal right ICA with estimated stenosis slightly less than 50% by NASCET criteria. Left carotid: Left common, internal, and external carotid arteries in the neck are patent without flow-limiting stenosis or evidence of dissection. Atherosclerotic calcifications at the bifurcation and proximal left ICA with estimated stenosis below 50% by NASCET criteria. Left vertebral: Left vertebral artery is patent without flow-limiting stenosis or dissection. Right vertebral: Very proximal right vertebral artery is not adequately visualized due to beam hardening artifact. Otherwise, no flow-limiting stenosis of the right vertebral artery is seen. Soft tissues: No acute abnormality of the neck soft tissues is seen. Nonspecific patchy foci of ground-glass attenuation are seen within the right upper lobe. These could represent small foci of inflammation or fibrosis, new compared to 2019 exam. IMPRESSION: 1. CTA Neck shows no occlusion or severe stenosis of the extracranial cerebrovascular circulation. 2. Small foci ground-glass attenuation in the right upper lobe, nonspecific. REFERENCES: NASCET CRITERIA. The degree of stenosis in the cervical segment of the internal carotid artery is based on NASCET criteria. Normal is no stenosis. Mild is less than 50% stenosis. Moderate is 50-69% stenosis. Severe is 70% to 99% stenosis. Total occlusion is no detectable patent lumen. Dictated and Authenticated by: Robson Schroeder MD. Orderin Kishore Ferguson MD
--- NOTE | 2024-08-31 16:30 | DI.VRAD_ITS ---
PROCEDURE INFORMATION: Exam: US Abdomen, Limited; Right Upper Quadrant Exam date and time: 08/31/2024 3:45 PM Age: 68 years old Clinical indication: Other: Ruq pain; Prior surgery; Surgery date: 6+ months; Surgery type: S/P RT kidney transplant 5 years ago TECHNIQUE: Imaging protocol: Real time ultrasound of the abdomen with image documentation. Limited exam focused on the right upper quadrant. COMPARISON: US [facility] DIAGNOSTIC 10/09/2023 8:39 AM FINDINGS: Liver: There is a diffuse increase in hepatic parenchymal echogenicity, consistent with fatty infiltration.. Hepatomegaly 16.1 cm Gallbladder: No gallstones in the gallbladder. Gallbladder wall 1.8 mm Biliary ducts: Common bile duct 5.2 mm Pancreas: Visualized pancreas is unremarkable. Right kidney: Right kidney is decreased in size and echogenic consistent with renal failure 7.7 cm. No hydronephrosis. Portal venous: Hepatopetal flow in the portal vein Transplants: Renal transplant measures 10.9 cm; no hydronephrosis. IMPRESSION: 1. There is a diffuse increase in hepatic parenchymal echogenicity, consistent with fatty infiltration.. 2. Right kidney is decreased in size and echogenic consistent with renal failure 7.7 cm. No hydronephrosis. 3. Renal transplant measures 10.9 cm; no hydronephrosis. Dictated and Authenticated by: Bang Jacobs MD. Orderin Kishore Ferguson MD
--- NOTE | 2024-08-31 17:11 | W.PM.HP.N ---
Date of service: 08/31/24 Time of Service: 17:11 Assessment and Plan Assessment and plan (1) Left facial numbness: Status: Acute Assessment and plan: ct head is negative. Pt has had echo in the past. MRI pending for monday. TIA vs CVA Echo 10/06/23 Conclusion Normal left ventricular wall thickness and chamber size. Ejection fraction is 60 to 65%. Wall motion is normal Mildly dilated right ventricle Mildly dilated right atrium. Normal left atrial size Aortic valve is thickened and trileaflet. There is mild aortic stenosis. Mean gradient is 13 mmHg. Calculated aortic valve area is 2.1 cm??. There is no aortic regurgitation Minimally thickened mitral leaflets with trace regurgitation Right ventricular systolic pressure could not be estimated (2) Coronary artery disease: Assessment and plan: Continue with medical management (3) HTN (hypertension): Assessment and plan: medical management (4) Hx of hyperlipidemia: Assessment and plan: cw medical management History of Present Illness History of Present Illness Chief Complaint: perioral numbness Narrative: This is a 68-year-old gentleman who has a known history of coronary artery disease status post CABG in approximately 2001 and then stent placement in 2009 presents to the ED with a 1 day history of perioral numbness which has since resolved. Patient was seen in the ED where a CT of the head was done which was negative for intracranial bleeding as well as multiple labs and chest x-ray which were essentially benign. The patient did have mild anemia as well as a mild elevated BUN/creatinine ratio. The patient denied any problems with his speech balance and as mentioned above his symptoms are completely resolved. The ED physician reached out to teleneurology who recommended admission for observation. I did discuss with the family that there was no MRI available until Monday and if the patient was going to be admitted my recommendation would be to stay until then for MRI or otherwise really no point for admission. Review of Systems All systems reviewed & are unremarkable except as noted in HPI and below PFSH All Active Problems Left facial numbness (Acute) Arthritis of right glenohumeral joint (Acute) Rotator cuff tear arthropathy of right shoulder (Acute) Pancytopenia (Acute) Colonoscopy - MAC (Acute 12/03/15) Medical History Complete tear of left rotator cuff (06/24/16) Tubular adenoma of colon (12/23/15) IgA nephropathy Renal failure Seizure disorder Obstructive sleep apnea Depression Gout Hx of hyperlipidemia HTN (hypertension) Coronary artery disease Surgical History History of eye surgery History of coronary artery stent placement Hx of CABG Kidney transplant recipient Social History Smoking/Tobacco Use Status: Never Smoking risk assessment performed?: Yes Alcohol Intake: current Alcohol Intake frequency: holidays/special occasions only Alcohol type: hard liquor Drug use: Never Substance use type: does not use Housing: house Do you feel safe at home: Yes Do you feel safe in your relationship?: Yes Meds Allergies and Home Medications Allergies Allergy/AdvReac Type Severity Reaction Status Date / Time levofloxacin Allergy Severe Other (See Verified 08/31/24 11:39 Comment) sevelamer (From Renvela) Allergy Severe per pcp Verified 08/31/24 11:39 list sodium bicarbonate Allergy Severe seizures Verified 08/31/24 11:39 lisinopril Allergy Intermediate Hives Verified 08/31/24 11:39 amoxicillin (From Augmentin) Allergy Other (See Verified 08/31/24 11:39 Comment) clavulanic acid (From Allergy Other (See Verified 08/31/24 11:39 Augmentin) Comment) gabapentin AdvReac Intermediate related to Verified 08/31/24 11:39 dialysis furosemide (From Lasix) AdvReac Nausea Verified 08/31/24 11:39 Home Medications ?Medication ?Instructions ?Recorded ?Confirmed ?Type citalopram 40 mg tablet 40 mg PO DAILY 08/18/12 08/31/24 History calcitriol 0.25 mcg capsule 0.25 mcg PO DAILY 02/25/13 08/31/24 History atorvastatin 40 mg tablet (Lipitor) 40 mg PO HS 05/26/14 08/31/24 History clopidogrel 75 mg tablet (Plavix) 75 mg PO DAILY 05/11/16 08/31/24 History carvedilol 3.125 mg tablet 3.125 mg PO BID 10/08/21 08/31/24 History levothyroxine 75 mcg tablet 75 mcg PO DAILY 10/08/21 08/31/24 History prednisone 5 mg tablet 5 mg PO DAILY 10/08/21 08/31/24 History levetiracetam 500 mg tablet 1,000 mg (2 x 500 mg) PO BID #0 10/11/21 08/31/24 Rx tabs prochlorperazine maleate 10 mg 1 tab PO TID PRN 10/21/21 08/31/24 History tablet allopurinol 100 mg tablet 200 mg PO DAILY 08/31/22 08/31/24 History mycophenolate sodium 180 mg 360 mg PO BID 08/31/22 08/31/24 History tablet,delayed release tacrolimus 1 mg capsule, 3 mg PO DAILY 08/31/22 08/31/24 History immediate-release benzonatate 100 mg capsule 100 mg PO BID PRN #7 caps 09/14/23 08/31/24 Rx benzonatate 100 mg capsule 100 mg PO TID PRN cough #30 caps 09/17/23 08/31/24 Rx doxycycline hyclate 100 mg capsule 100 mg PO BID #10 caps 09/17/23 08/31/24 Rx aspirin 81 mg tablet,delayed 81 mg PO DAILY 08/31/24 08/31/24 History release (Adult Low Dose Aspirin) Exam Narrative Exam Narrative: HEENT: Normocephalic atraumatic mucous membranes moist oropharynx is clear Neck: No lymphadenopathy no JVD no thyromegaly Cardiovascular: Regular rate and rhythm no murmurs or gallops Lungs: Clear to auscultation bilaterally with good air exchange Abdomen: Soft nontender nondistended bowel sounds active neurologic: Cranial nerves II through XII intact as tested reflexes upper lower extremity normal as tested Psych: Alert and oriented x 3 no apparent distress can give a linear history Results Labs 08/31/24 12:23 08/31/24 12:23 Labs: Laboratory Results - last 24 hr 08/31/24 08/31/24 08/31/24 12:23 13:49 14:53 WBC 6.26 RBC 3.69 L Hgb 10.7 L Hct 35.2 L MCV 95 MCH 29.0 MCHC 30.4 L RDW 14.6 H Plt Count 112 L MPV 9.2 Immature Gran % 0.8 Neutrophils % 65.1 Lymphocytes % 26.0 Monocytes % 6.2 Eosinophils % 1.6 Basophils % 0.3 Nucleated RBC % 0.0 Absolute Neutrophils 4.07 Absolute Lymphocytes 1.63 Absolute Monocytes 0.39 Absolute Eosinophils 0.10 Absolute Basophils 0.02 Sodium 138 Potassium 5.1 Chloride 106 Carbon Dioxide 26.1 Anion Gap 5.9 BUN 22 H Creatinine 1.7 H Est GFR (CKD-EPI 2020) 43.10 Glucose 134 H Calcium 9.6 Total Bilirubin 0.4 AST 22 ALT 25 Alkaline Phosphatase 121 H Troponin I 17 16 Cancelled Total Protein 6.7 Albumin 3.5 Lipase 22 Last Vital Signs Temp 36.8 C 08/31/24 15:19 Pulse 59 L 08/31/24 15:32 Resp 18 08/31/24 15:19 BP 131/41 L 08/31/24 15:32 Pulse Ox 100 08/31/24 15:32 Time Spent Time spent with Patient: 40-54 minutes Time was spent: preparing to see the patient(eg.review tests), obtaining and/or reviewing separately otained hiistory, ordering medications,tests, procedures, referring, communicating with other health auto care center manager, indepentently interpreting results, counseling the patient and care coordination
--- NOTE | 2024-08-31 17:31 | W.PCEDHO ---
Registration Status: Primary Language: Preferred Language: ED Information & Data Chief Complaint GenMedical 08/31/24 11:23 Chief Complaint GenMedical 08/31/24 11:15 Triage Note face is numb and tough in 08/31/24 11:15 numb this am, has right sided kidney pain, the kidney that he had a transplant on. also is dizzy Medical / Surgical History (Last Reviewed 09/17/23 @ 15:42 by Davide Yan NP) Complete tear of left rotator cuff (06/24/16) Tubular adenoma of colon (12/23/15) IgA nephropathy Renal failure Seizure disorder Obstructive sleep apnea Depression Gout Hx of hyperlipidemia HTN (hypertension) Coronary artery disease (Last Reviewed 09/17/23 @ 15:42 by Davide Yan NP) History of eye surgery History of coronary artery stent placement Hx of CABG Kidney transplant recipient Most Recent Vital Signs Temperature 98.2 F 08/31/24 15:19 Temperature Source Oral 08/31/24 15:19 Pulse 59 L 08/31/24 15:32 Pulse 58 L 08/31/24 13:20 Respiratory Rate 18 08/31/24 15:19 Respiratory Effort Normal 08/31/24 11:33 Respiratory Depth Normal 08/31/24 11:33 Respiratory Pattern Normal 08/31/24 11:33 Blood Pressure 131/41 L 08/31/24 15:32 Blood Pressure Mean 72 08/31/24 15:32 Blood Pressure Position Sitting 08/31/24 11:15 Pulse Oximetry 100 08/31/24 15:32 Oxygen Delivery Method Room Air 08/31/24 15:19 Oxygen Flow Rate 0 08/31/24 11:15 End Tidal Co2 8 08/31/24 11:15 Allergies levofloxacin Allergy (Severe, Verified 08/31/24 11:39) Other (See Comment) sevelamer (From Renvela) Allergy (Severe, Verified 08/31/24 11:39) per pcp list sodium bicarbonate Allergy (Severe, Verified 08/31/24 11:39) seizures lisinopril Allergy (Intermediate, Verified 08/31/24 11:39) Hives amoxicillin (From Augmentin) Allergy (Verified 08/31/24 11:39) Other (See Comment) clavulanic acid (From Augmentin) Allergy (Verified 08/31/24 11:39) Other (See Comment) gabapentin Adverse Reaction (Intermediate, Verified 08/31/24 11:39) related to dialysis reports pt was instructed to avoid this med furosemide (From Lasix) Adverse Reaction (Verified 08/31/24 11:39) Nausea Active Medications Generic Name Dose Route Start Last Admin Trade Name Vincent PRN Reason Stop Dose Admin Iohexol 100 ml 08/31/24 13:45 08/31/24 13:33 Omnipaque 350 Mg/Ml 100 Ml Btl IJ 09/30/24 23:59 70 ml DIRECTED JACQUES Administration Sodium Chloride 50 ml 08/31/24 13:45 08/31/24 13:32 Normal Saline - Diluent 50 Ml Vial IJ 50 ml .FOR DI USE JACQUES Administration IV IV Catheter Type [Right Peripheral IV Forearm] IV Catheter Gauge [Right 20 Forearm] Diet Orders Category Date Time Status Regular/Normal [DIET] Nutrition 08/31/24 Dinner Active Diagnostics 08/31/24 08/31/24 08/31/24 Range/Units 14:53 13:49 12:23 WBC 6.26 (4.4-10.8) 10^3/uL RBC 3.69 L (4.36-5.78) 10^6/uL Hgb 10.7 L (13.5-17.5) g/dL Hct 35.2 L (40.0-50.0) % MCV 95 (80-95) fL MCH 29.0 (27.0-33.0) pg MCHC 30.4 L (32.0-36.0) % RDW 14.6 H (11.8-14.1) % Plt Count 112 L (130-400) 10^3/uL MPV 9.2 (8.0-11.0) fL Immature Gran % 0.8 % Neutrophils % 65.1 % Lymphocytes % 26.0 % Monocytes % 6.2 % Eosinophils % 1.6 % Basophils % 0.3 % Nucleated RBC % 0.0 (0.0-0.3) % Absolute Neutrophils 4.07 (1.2-6.7) 10^3/uL Absolute Lymphocytes 1.63 (1.2-3.4) 10^3/uL Absolute Monocytes 0.39 (0.1-0.8) 10^3/uL Absolute Eosinophils 0.10 (0.0-0.7) 10^3/uL Absolute Basophils 0.02 (0.0-0.2) 10^3/uL Sodium 138 (136-145) mmol/L Potassium 5.1 (3.5-5.1) mmol/L Chloride 106 (98-107) mmol/L Carbon Dioxide 26.1 (21.0-32.0) mmol/L Anion Gap 5.9 (3-11) mmol/L BUN 22 H (7-18) mg/dL Creatinine 1.7 H (0.70-1.30) mg/dL Est GFR (CKD-EPI 2020) 43.10 (mL/min/1.73m2) Glucose 134 H (74-106) mg/dL Calcium 9.6 (8.5-10.1) mg/dL Total Bilirubin 0.4 (0.2-1.0) mg/dL AST 22 (15-37) U/L ALT 25 (16-63) U/L Alkaline Phosphatase 121 H (46-116) U/L Troponin I Cancelled 16 17 (<or=76) ng/L Total Protein 6.7 (6.4-8.2) g/dL Albumin 3.5 (3.4-5.0) g/dL Lipase 22 (<78) U/L Intake and Output - 24 Hour Total 08/31/24 11:14 thru 08/31/24 15:41 Intake Total 510 Balance 510 Weight 265 lb 3.457 oz Intake: IV 510 Falls Risk Assessment History of Falls No History 08/31/24 13:30 Contributing Factors No Factors 08/31/24 13:30 Ambulatory Aids Independent 08/31/24 13:30 Tubes/Lines None 08/31/24 13:30 Gait Evaluation No gait disturbance 08/31/24 13:30 Cognition No cognitive impairment 08/31/24 13:30 Fall Total Score 0 08/31/24 13:30 Level of Risk Standard/Low Risk 08/31/24 13:30 Problems (Last Reviewed 09/17/23 @ 15:42 by Davide Yan NP) Left facial numbness (Acute) v v v v v v v v v Sending and/or Receiving Nurses: Please use comment section below to note any information pertinent to the patient hand-off not included above. Information / Comments: Report received from: Ciera Luque RN
[2024-08-31] MEDS: Enoxaparin 40 MG/0.4 ML SYR SC (18:28)
[2024-08-31] MEDS: levETIRAcetam 500 MG TAB 1000 MG PO (19:50)
[2024-08-31] MEDS: Carvedilol 3.125 MG TAB PO (19:50)
[2024-08-31] MEDS: Atorvastatin 40 MG TAB PO (19:50)
[2024-09-01] VITALS (7 sets, daily range): BP systolic 110–127; BP diastolic 54–70; PULSE 60–77; RESP 12–20; TEMP 36–36.9; O2SAT 96–99
[2024-09-01] MEDS: Levothyroxine 75 MCG TAB PO (05:19)
[2024-09-01 06:20] LABS: Abs Immature Grans 0.04 10^3/uL (0.0-0.06); Absolute Basophil Count 0.02 10^3/uL (0.0-0.2); Absolute Eosinophil Count 0.11 10^3/uL (0.0-0.7); Absolute Lymphocyte Count 2.08 10^3/uL (1.2-3.4); Absolute Monocyte Count 0.36 10^3/uL (0.1-0.8); Basophils % 0.4 %; Eosinophils % 2.2 %; HCT 33.7 % (40.0-50.0); HGB 10.5 g/dL (13.5-17.5); Immature Grans % 0.8 %; Lymphocytes % 40.7 %; MCH 28.8 pg (27.0-33.0); MCHC 31.2 % (32.0-36.0); MCV 92 fL (80-95); MPV 10.2 fL (8.0-11.0); Neutrophils % 48.9 %; Platelet Count 117 10^3/uL (130-400); RBC 3.65 10^6/uL (4.36-5.78); RDW 14.6 % (11.8-14.1); RDW-SD 49.7 fL; WBC 5.11 10^3/uL (4.4-10.8)
[2024-09-01 06:51] LABS: ALT 24 U/L (16-63); AST 18 U/L (15-37); Albumin 3.3 g/dL (3.4-5.0); Alkaline Phosphatase 118 U/L (46-116); Anion Gap 7.6 mmol/L (3-11); BUN 27 mg/dL (7-18); Bilirubin, Total 0.4 mg/dL (0.2-1.0); CO2 24.4 mmol/L (21.0-32.0); CREATININE 1.5 mg/dL (0.70-1.30); Calcium 9.3 mg/dL (8.5-10.1); Chloride 107 mmol/L (98-107); Estimated GFR 50.08 (mL/min/1.73m2); Glucose 127 mg/dL (74-106); Potassium 4.6 mmol/L (3.5-5.1); Sodium 139 mmol/L (136-145); Total Protein 6.3 g/dL (6.4-8.2)
--- NOTE | 2024-09-01 07:59 | PT.INIE ---
Date of service: 09/01/24 Time of Service: 07:50 PT Notes Visit Reasons: TIA (cardiology) Inpatient Physical Therapy Evaluation Certification Period:? From ___09/01/24 ?? Through ___09/01/24____ I certify the need for these services as being medically necessary and skilled as furnished under this plan of treatment while under my care. Please sign and return within 14 days if you agree with the plan of care listed below.? Thank you for this referral! ? Referring Physician? Date Referring Doctor:? Haider Whatley MD PT Orders: PT CONSULT for home safety Precautions: none Patient Profile/Admitting Diagnosis:? The patient is a 68 yo male adm on 08/31/24 with history of coronary artery disease status post CABG in approximately 2001 and then stent placement in 2009 presents to the ED with a 1 day history of perioral numbness which has since resolved. Patient was seen in the ED where a CT of the head was done which was negative for intracranial bleeding as well as multiple labs and chest x-ray which were essentially benign. The patient did have mild anemia as well as a mild elevated BUN/creatinine ratio. The patient denied any problems with his speech balance and as mentioned above his symptoms are completely resolved. Awaiting an MRI tomorrow upon recommendation from neuro. Lives in [facility] with his . One level home. 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 I with all ADLs. No assistive device for mobility. The patient reports he was not using his CPAP as recommended prior to his incident Past Medical History: All Active Problems Left facial numbness (Acute) Arthritis of right glenohumeral joint (Acute) Rotator cuff tear arthropathy of right shoulder (Acute) Pancytopenia (Acute) Colonoscopy - MAC (Acute 12/03/15) Medical History Complete tear of left rotator cuff (06/24/16) Tubular adenoma of colon (12/23/15) IgA nephropathy Renal failure Seizure disorder Obstructive sleep apnea Depression Gout Hx of hyperlipidemia HTN (hypertension) Coronary artery disease Surgical History History of eye surgery History of coronary artery stent placement Hx of CABG Kidney transplant recipient Medications: See chart Subjective: Feeling fine and wondering why a PT consult was ordered Objective: Patient sleeping upon arrival. Left upright in chair awaiting breakfast. Mental Status: Patient is alert and oriented. Pain: Reports no pain at rest or with activity Vital Signs: per nsg 6:22: 110/56, 60 bpm, 20 RR 99%. no c/o dizziness during today's session ROM/Strength: Upper extremities: WFL and symmetric Lower extremities:WFL and symmetric Sensation: Reports no numbness or tingling. Periorbital numbness has resolved Soft tissue/edema: No gross abnormalities. Scar right medial leg s/p CABG graft harvesting. Bed Mobility: Supine to sit independently Transfers: Sit to stand independently Gait: Ambulated 30 feet without assistive device without loss of balance. Slightly widened base of support and lateral sway but expect this is baseline. Balance: good [facility] AM-PAC 6 clicks Basic Mobility Inpatient Short Form: Raw Score:??24? CMS Score: 0% Informed Consent/Education:? Patient instructed in purpose of PT consult and plan of care and is agreeable Assessment:? Patient is a? 68 year old male adm on 09/01/24 for perorbital numbness which has now resolved.?The patient is safe and mobilizing at his baseline. No need for skilled PT services at this time. Patient is assessed as:? Low 30890?? History: none Examination: see above Presentation: Stable and uncomplicated? Decision Making:? Low (0 history, 1-2 exam, stable/predictable, easy 20) Physical Therapy Goals: 1 visit Mobilizing at baseline: met Plan of Care/Treatment Plan: No PT needs at this time. DISCHARGE RECOMMENDATIONS: none Informed consent Prior to the start and throughout the course of the examination and treatment, patient was made aware of the specifics and purpose of the physical assessment and treatment procedures. Appropriate draping procedures were utilized to protect modesty where applicable. Billing Charges: Treatment Units Time Duration Manual Therapy(30322) Hands-on techniques to modulate pain increase joint range of motion reduce or eliminate soft tissue swelling, inflammation, or restriction facilitate relaxation and improve contractile and non-contractile tissue extensibility ? ? Therapeutic Procedures (33992) Instruction in therapeutic exercises to develop strength and endurance, range of motion and flexibility. HEP instruction and review: Provided skilled instruction in proper exercise performance: Provided skilled manual cues to facilitate proper muscle recruitment and/or movement pattern Neurological Re-Education(83539) To improve balance, coordination, kinesthetic and proprioceptive sensations. ? ? Ultrasound(00618) To promote healing. ? ? Gait Training(00991) ? ? Therapeutic Activity(05471) Instruction in dynamic activities with one on one patient contact by the provider to improve functional performance as follows: ? ? Self Care Training(63398) ? ? E-Stim (Attended)(03526) ? ? Low IE(05337) 1 10 Mod IE(76697) ? ? High IE(66789) ? ? Time Coded Treatment Time ? 0 Total Treatment Time ? 10
--- NOTE | 2024-09-01 08:16 | INITIAL_ITS ---
Date of service: 09/01/24 Time of Service: 08:17 Care Management Initial Assmt Initial Assessment Reason for Hospitalization: TIA Functional Status/Living Situation Patient Presentation: Guevara was awake and lying in bed when CM met with him. He is pleasant and easy to engage in conversation. He is active and independent at baseline. He works for [employer] and would appreciate a return to work letter on discharge. MRI is planned for Monday. CM will follow. Town of Residence: [facility] [facility] Resides with: Spouse ( Heather) Significant Other/Family: [facility] Employment Status: Employed ([employer] for [employer]) Instrumental Activities of Daily Living (ADLs): Independent Medications Medication Management: No Issues/Barriers identified Physical Functioning/Mobility Assistive Device: None Advance Directives Advance Directives: Do you have an Advance Directive: Y 09/27/12 13:40 AD On File at [facility]: Y 09/27/12 13:40 Date Asked 10/05/23 10/06/23 02:09 AD Date Reviewed 08/31/24 08/31/24 11:51 COLST On File at [facility] COLST Date Scanned Code Status Resuscitation Status Full Code Portal Pt does not currently have a portal and education provided: Yes Insurance Coverage/Financial Issues Insurance: [facility] - [id number] Medicare Part A & B - [id number] Financial Issues: None-per pt Care Team Visit Care Team Role Provider Type ALEXIS Choudhary Primary Care Provider NON-[facility] STAFF PHYSICIAN Kayla Galvez Other Providers LEGAL DOCUMENT ASSISTANT Rosetta Mckay Other Providers LEGAL DOCUMENT ASSISTANT Lien Cochran Other Providers LEGAL DOCUMENT ASSISTANT InPatient Dereje Dela Cruz Other Providers OTHER Agnieszka Das RN Other Providers LEGAL DOCUMENT ASSISTANT Rhea Whatley Other Providers LEGAL DOCUMENT ASSISTANT Marty Novak MD Emergency Provider [facility] STAFF PHYSICIAN Haider Whatley MD Admit Provider [facility] STAFF PHYSICIAN Attending Provider Discharge Potential Discharge Needs: PCP F/U Appt Anticipated Barriers to Discharge: None Identified Patient/Family Education Needs: Review discharge instructions, discuss Ask Me Three Transportation: Private vehicle Plan: MRI pending for monday. Anticipate, Guevara will discharge home via private vehicle when medically ready for discharge. He will need a letter to give to his employer supporting his hospital stay. Follow up appointment with his PCP and discharge plan of care will be needed prior to discharge. CM will continue to follow. Social Determinants of Health Screening Social Determinants of health last assessed in clinic: 09/01/24 Will the Patient Participate in the Screening?: Yes Do you worry about having a steady place to live?: no Problems where you live: no known problems In the past 12 months, have you had to go without electric, gas, oil or water in your home?: no 1. Within the past 12 months, we worried whether our food would run out before we got money to buy more.: Never true 2. Within the past 12 months, the food we bought just didn't last and we didn't have money to get more.: Never true Has lack of transportation kept you from medical appointments or from doing things needed for daily living?: no Has anyone in your life made you feel unsafe or unsupported?: no How hard is it for you to pay for the very basics like food, housing, medical care, and heating? Would you say it is:: Not hard at all Do you want help finding or keeping work or a job?: I do not need or want help If for any reason you need help with day-to-day activities such as bathing, preparing meals, shopping, managing finances, etc., do you get the help you need?: I don?t need any help How often do you feel lonely or isolated from those around you?: Never Do you speak a language other than Dive[place] at home?: No Does the patient want assistance with any of the above?: No PFSH All Active Problems Left facial numbness (Acute) Arthritis of right glenohumeral joint (Acute) Rotator cuff tear arthropathy of right shoulder (Acute) Pancytopenia (Acute) Colonoscopy - MAC (Acute 12/03/15) Medical History Complete tear of left rotator cuff (06/24/16) Tubular adenoma of colon (12/23/15) IgA nephropathy Renal failure Seizure disorder Obstructive sleep apnea Depression Gout Hx of hyperlipidemia HTN (hypertension) Coronary artery disease Surgical History History of eye surgery History of coronary artery stent placement Hx of CABG Kidney transplant recipient Social History Smoking/Tobacco Use Status: Never Smoking risk assessment performed?: Yes Alcohol Intake: current Alcohol Intake frequency: holidays/special occasions only Alcohol type: hard liquor Drug use: Never Substance use type: does not use Housing: house Do you feel safe at home: Yes Do you feel safe in your relationship?: Yes
[2024-09-01] MEDS: Tacrolimus 0.5 MG CAP 3 MG PO (08:27)
[2024-09-01] MEDS: Carvedilol 3.125 MG TAB PO ×2 (08:27→20:06)
[2024-09-01] MEDS: levETIRAcetam 500 MG TAB 1000 MG PO ×2 (08:28→20:06)
[2024-09-01] MEDS: Calcitriol 0.25 MCG CAP PO (08:28)
[2024-09-01] MEDS: Allopurinol 100 MG TAB 200 MG PO (08:28)
[2024-09-01] MEDS: predniSONE 5 MG TAB PO (08:28)
[2024-09-01] MEDS: Aspirin E.C. 81 MG TABEC PO (08:28)
[2024-09-01] MEDS: Citalopram 20 MG TAB 40 MG PO (08:28)
--- NOTE | 2024-09-01 09:32 | PGE_ITS ---
Date of Service Date of service: 09/01/24 Time of Service: 09:32 Assessment and Plan Assessment and plan (1) Left facial numbness: Status: Acute Assessment and plan: ct head is negative. Pt has had echo in the past. MRI pending for monday. TIA vs CVA Echo 10/06/23 Conclusion Normal left ventricular wall thickness and chamber size. Ejection fraction is 60 to 65%. Wall motion is normal Mildly dilated right ventricle Mildly dilated right atrium. Normal left atrial size Aortic valve is thickened and trileaflet. There is mild aortic stenosis. Mean gradient is 13 mmHg. Calculated aortic valve area is 2.1 cm??. There is no aortic regurgitation Minimally thickened mitral leaflets with trace regurgitation Right ventricular systolic pressure could not be estimated (2) Coronary artery disease: Assessment and plan: Continue with medical management (3) HTN (hypertension): Assessment and plan: cw medical management (4) Hx of hyperlipidemia: Assessment and plan: medical management (5) Renal failure: Assessment and plan: Pt has remote history of renal transplant and is currently on tacrolimus and prednisone. Subjective Subjective Interval history since last seen: no new complaints. No more perioral numbness. No slurred speech Exam Narrative Exam Narrative: HEENT: Normocephalic atraumatic mucous membranes moist oropharynx is clear Neck: No lymphadenopathy no JVD no thyromegaly Cardiovascular: Regular rate and rhythm no murmurs or gallops Lungs: Clear to auscultation bilaterally with good air exchange Abdomen: Soft nontender nondistended bowel sounds active neurologic: Cranial nerves II through XII intact as tested reflexes upper lower extremity normal as tested Psych: Alert and oriented x 3 no apparent distress can give a linear history Objective Last Vital Signs Temp 36 C L 09/01/24 06:22 Pulse 60 09/01/24 06:22 Resp 20 09/01/24 06:22 BP 110/70 09/01/24 08:31 Pulse Ox 99 09/01/24 06:22 Laboratory Results - last 24 hr 08/31/24 08/31/24 08/31/24 12:23 13:49 14:53 WBC 6.26 RBC 3.69 L Hgb 10.7 L Hct 35.2 L MCV 95 MCH 29.0 MCHC 30.4 L RDW 14.6 H Plt Count 112 L MPV 9.2 Immature Gran % 0.8 Neutrophils % 65.1 Lymphocytes % 26.0 Monocytes % 6.2 Eosinophils % 1.6 Basophils % 0.3 Nucleated RBC % 0.0 Absolute Neutrophils 4.07 Absolute Lymphocytes 1.63 Absolute Monocytes 0.39 Absolute Eosinophils 0.10 Absolute Basophils 0.02 Sodium 138 Potassium 5.1 Chloride 106 Carbon Dioxide 26.1 Anion Gap 5.9 BUN 22 H Creatinine 1.7 H Est GFR (CKD-EPI 2020) 43.10 Glucose 134 H Calcium 9.6 Total Bilirubin 0.4 AST 22 ALT 25 Alkaline Phosphatase 121 H Troponin I 17 16 Cancelled Total Protein 6.7 Albumin 3.5 Lipase 22 09/01/24 05:45 WBC 5.11 RBC 3.65 L Hgb 10.5 L Hct 33.7 L MCV 92 MCH 28.8 MCHC 31.2 L RDW 14.6 H Plt Count 117 L MPV 10.2 Immature Gran % 0.8 Neutrophils % 48.9 Lymphocytes % 40.7 Monocytes % 7.0 Eosinophils % 2.2 Basophils % 0.4 Nucleated RBC % 0.0 Absolute Neutrophils 2.50 Absolute Lymphocytes 2.08 Absolute Monocytes 0.36 Absolute Eosinophils 0.11 Absolute Basophils 0.02 Sodium 139 Potassium 4.6 Chloride 107 Carbon Dioxide 24.4 Anion Gap 7.6 BUN 27 H Creatinine 1.5 H Est GFR (CKD-EPI 2020) 50.08 Glucose 127 H Calcium 9.3 Total Bilirubin 0.4 AST 18 ALT 24 Alkaline Phosphatase 118 H Troponin I Total Protein 6.3 L Albumin 3.3 L Lipase Time Spent with Patient Time Spent with Patient: 25-34 minutes Time was spent: preparing to see the patient(eg.review tests), obtaining and/or reviewing separately otained hiistory, ordering medications,tests, procedures, referring, communicating with other health career technical education teacher, indepentently interpreting results, counseling the patient and care coordination
[2024-09-01] MEDS: Enoxaparin 40 MG/0.4 ML SYR SC (17:54)
[2024-09-01] MEDS: Atorvastatin 40 MG TAB PO (20:06)
--- NOTE | 2024-09-02 | DI.MRI_ITS ---
Exam(s) MR BRAIN WO EXAM: MR BRAIN WO CLINICAL HISTORY: cva TECHNIQUE: Multiplanar multisequence MRI of the brain was performed. COMPARISON: CT CT BRAIN NECK CTA from 08/31/2024 FINDINGS: CEREBRAL PARENCHYMA: Again noted is evidence of right parietal craniotomy. There is no evidence of intracranial hemorrhage, mass effect, or shift of midline structures. There are no extra-axial fluid collections. No evidence of cerebellar tonsillar ectopia. Ventricular size is upper normal and commensurate with the size of the overlying cortical sulci. There is a small 2 millimeter nonhemorrhagic lacunar infarct in the right cerebellar hemisphere. There is some patchy bilateral FLAIR bright periventricular signal abnormality consistent with chroni c small vessel disease. These do not exhibit restricted diffusion There is no significant focal signal abnormality evident on diffusion imaging to suggest acute ischem ic event. PITUITARY GLAND: No mass nor parasellar abnormality. No obvious abnormality in the cavernous sinuses. FLOW VOIDS: The expected flow void are noted. No evidence of obvious aneurysm nor obvious vascular ma lformation on this non infused MRI exam. PARANASAL SINUSES: Retention cysts noted in the floor of the right maxillary sinus. ORBITS: Prior right cataract surgery. No other obvious orbital findings. IMPRESSION: No significant acute intracranial findings on this noninfused MRI scan of the brain. There is periventricular signal abnormality consistent with chronic small vessel disease. No evidence of significant vascular malformation on this non few study. DATA REPOSITORY:
[2024-09-02 02:47] VITALS: BP 123/69; PULSE 55; RESP 20; TEMP 36.4; O2SAT 96
[2024-09-02] MEDS: Levothyroxine 75 MCG TAB PO (05:41)
[2024-09-02] MEDS: Enoxaparin 40 MG/0.4 ML SYR SC (05:42)
[2024-09-02 06:27] LABS: Abs Immature Grans 0.05 10^3/uL (0.0-0.06); Absolute Basophil Count 0.02 10^3/uL (0.0-0.2); Absolute Monocyte Count 0.32 10^3/uL (0.1-0.8); Absolute Neutrophil Count 2.59 10^3/uL (1.2-6.7); Basophils % 0.4 %; Eosinophils % 1.9 %; HCT 33.1 % (40.0-50.0); HGB 10.6 g/dL (13.5-17.5); Lymphocytes % 40.5 %; MCH 29.2 pg (27.0-33.0); MCV 91 fL (80-95); Monocytes % 6.2 %; Platelet Count 118 10^3/uL (130-400); RBC 3.63 10^6/uL (4.36-5.78); RDW 14.5 % (11.8-14.1); RDW-SD 48.3 fL; WBC 5.18 10^3/uL (4.4-10.8)
[2024-09-02 06:57] LABS: ALT 22 U/L (16-63); AST 16 U/L (15-37); Albumin 3.2 g/dL (3.4-5.0); Alkaline Phosphatase 110 U/L (46-116); Anion Gap 7.6 mmol/L (3-11); BUN 31 mg/dL (7-18); Bilirubin, Total 0.2 mg/dL (0.2-1.0); CO2 24.4 mmol/L (21.0-32.0); CREATININE 1.6 mg/dL (0.70-1.30); Calcium 9.9 mg/dL (8.5-10.1); Chloride 106 mmol/L (98-107); Estimated GFR 46.35 (mL/min/1.73m2); Glucose 125 mg/dL (74-106); Potassium 4.5 mmol/L (3.5-5.1); Sodium 138 mmol/L (136-145); Total Protein 6.2 g/dL (6.4-8.2)
[2024-09-02 07:33] VITALS: BP 126/71; PULSE 67; RESP 24; TEMP 36.7; O2SAT 97
[2024-09-02] MEDS: Aspirin E.C. 81 MG TABEC PO (08:36)
[2024-09-02] MEDS: Carvedilol 3.125 MG TAB PO (08:36)
[2024-09-02] MEDS: Calcitriol 0.25 MCG CAP PO (08:36)
[2024-09-02] MEDS: Allopurinol 300 MG TAB PO (08:37)
[2024-09-02] MEDS: Citalopram 20 MG TAB 40 MG PO (08:37)
[2024-09-02] MEDS: predniSONE 5 MG TAB PO (08:37)
[2024-09-02] MEDS: levETIRAcetam 500 MG TAB 1000 MG PO (08:37)
--- NOTE | 2024-09-02 09:31 | CMDISCH_ITS ---
Date of service: 09/02/24 Time of Service: 09:31 LACE Index Scoring Tool Questions: Length of Stay (in days): 2 Was the patient admitted via the E.D.?: Yes Comorbidities: Chronic Pulmonary Disease and Liver or Renal Disease E.D. Visits: 1 Answers: Total Score: 11 Risk of Readmission: High Risk Care Management Discharge Plan Reason for Hospitalization: Tia Discharge Plan: Anticipate Guevara will be discharged home with no new services when medically cleared. He will follow up with his PCP and plan of care and transport with family. Patient/Family Education Needs: Review of discharge instructions, limitations, follow up plan and discuss Ask Me Three [facility] Health Related Social Needs: No Data to Display
[2024-09-02 11:14] VITALS: BP 119/57; PULSE 62; RESP 20; TEMP 36.1; O2SAT 97
--- NOTE | 2024-09-02 11:49 | RESPIRATORY ---
09/02/2024 Pt has home machine from [employer] Max 18 Min 14. H2O chamber filled
--- NOTE | 2024-09-02 12:25 | DSE_ITS ---
Date of service: 09/02/24 Time of Service: 12:25 DS: Diagnosis Discharge Diagnosis (1) Left facial numbness: Status: Acute (2) Coronary artery disease: (3) HTN (hypertension): (4) Hx of hyperlipidemia: (5) Renal failure: Discharge Plan Disposition Patient Disposition: Home Condition: Good Discharge Details Reason For Visit: TIA Admit Date/Time: 08/31/24 17:07 Admit Provider: Haider Whatley Attending Provider: Haider Whatley Primary Care Provider: Avery Abbott Hospital Course Hospital Course: This is a 68-year-old gentleman who was admitted to the hospital for possible TIA versus CVA. Patient had perioral numbness and little bit of left-sided numbness in his face. Workup included a CT as well as an MRI both which were within normal limits. Patient had an echocardiogram in the past and this was not repeated. Patient's symptoms had completely resolved after this 1 episode. On the , pt asked to be discharged to which I agreed. Patient is currently on aspirin as well as a statin. Patient was to be placed on Plavix by his PCP but he never started taking this. I recommended the patient follow-up with his PCP in regards to the risks and benefits of continuing his Plavix but will defer to the outpatient setting Home Meds and New Rx's Prescriptions: Continued mycophenolate sodium 180 mg tablet,delayed release (DR/EC) 360 mg PO BID citalopram 40 MG tablet 40 mg PO DAILY calcitriol 0.25 MCG capsule 0.25 mcg PO DAILY atorvastatin [Lipitor] 40 MG tablet 40 mg PO HS aspirin [Adult Low Dose Aspirin] 81 mg tablet,delayed release (DR/EC) 81 mg PO DAILY allopurinol 300 mg tablet 300 mg PO DAILY tacrolimus [Astagraf XL] 1 mg capsule,extended release 24hr 2 mg PO DAILY Patient Comments: TAKE 2 CAPSULES BY MOUTH DAILY levetiracetam 1,000 mg tablet 1,000 mg PO BID carvedilol 3.125 mg tablet 3.125 mg PO BID Patient Comments: TAKE ONE TABLET BY MOUTH TWICE A DAY levothyroxine 75 mcg tablet 75 mcg PO DAILY Patient Comments: TAKE ONE TABLET BY MOUTH EVERY DAY prednisone 5 mg tablet 5 mg PO DAILY Patient Comments: TAKE 1 TABLET BY MOUTH DAILY Discontinued clopidogrel [Plavix] 75 MG tablet 75 mg PO DAILY Discharge Instructions Stand Alone Forms: Nursing Discharge Form Referrals: Avery Abbott PA [Primary Care Provider] - 09/11/24 10:00 am (follow up in 5-7 days) Activity:: Activity as Tolerated Equipment/Supplies:: No Equipment Needed Diet:: As Tolerated Discharge Orders Discharge Orders: Discharge Order (Routine); Ordered 09/02/24 Ordered By: Haider Whatley DS: Summary Time Spent with Patient providing and/or coordinating discharge services: Greater than 30 minutes Status at Discharge Functional status at discharge: independent ambulation Overall status at discharge: patient is back to baseline Mental Status: mental status grossly normal Speech and Movement: speech and movement normal Mood: congruent mood Affect: normal affect Quality:SDOH Health Related Social Needs: No Data to Display Exam Narrative Exam Narrative: HEENT: Normocephalic atraumatic mucous membranes moist oropharynx is clear Neck: No lymphadenopathy no JVD no thyromegaly Cardiovascular: Regular rate and rhythm no murmurs or gallops Lungs: Clear to auscultation bilaterally with good air exchange Abdomen: Soft nontender nondistended bowel sounds active neurologic: Cranial nerves II through XII intact as tested reflexes upper lower extremity normal as tested Psych: Alert and oriented x 3 no apparent distress can give a linear history Psych Mental Status: mental status grossly normal Speech and Movement: speech and movement normal Mood: congruent mood Affect: normal affect DS: Data Vitals/I&O Vitals and I&O: Vital Signs Temperature 36.1 C L 09/02/24 11:14 Temperature Source Temporal Artery Scan 09/02/24 11:14 Pulse 62 09/02/24 11:14 Pulse Rhythm Regular 08/31/24 17:46 Pulse 58 L 08/31/24 13:20 Respiratory Rate 20 09/02/24 11:14 Respiratory Effort Normal, Non-Labored 08/31/24 17:46 Respiratory Depth Normal 08/31/24 17:46 Respiratory Pattern Normal 08/31/24 17:46 Blood Pressure 119/57 L 09/02/24 11:14 Blood Pressure Mean 77 09/02/24 11:14 Blood Pressure Position Sitting 08/31/24 11:15 Pulse Oximetry 97 09/02/24 11:14 Oxygen Delivery Method Room Air 09/02/24 11:14 Oxygen Flow Rate 0 09/02/24 11:14 End Tidal Co2 8 08/31/24 11:15 Pain Level 0 09/02/24 11:14 Comment RN notified 09/02/24 11:14 Intake & Output 09/01/24 09/02/24 09/02/24 23:59 11:59 23:59 Intake Total 500 / 1500 1000 / 1000 Balance 500 / 1500 1000 / 1000 Weight 165.4 kg Intake: IV 500 / 1500 1000 / 1000 Other: Comment pt voids indepedently, no issues reported pt voids independently, no issues reported Data Completed and Pending Labs on day of discharge: Labs from last 24 hours 09/02/24 05:44: WBC 5.18, RBC 3.63 L, Hgb 10.6 L, Hct 33.1 L, MCV 91, MCH 29.2, MCHC 32.0, RDW 14.5 H, Plt Count 118 L, MPV 10.0, Immature Gran % 1.0, Neutrophils % 50.0, Lymphocytes % 40.5, Monocytes % 6.2, Eosinophils % 1.9, Basophils % 0.4, Nucleated RBC % 0.0, Absolute Neutrophils 2.59, Absolute Lymphocytes 2.10, Absolute Monocytes 0.32, Absolute Eosinophils 0.10, Absolute Basophils 0.02, Sodium 138, Potassium 4.5, Chloride 106, Carbon Dioxide 24.4, Anion Gap 7.6, BUN 31 H, Creatinine 1.6 H, Est GFR (CKD-EPI 2020) 46.35, Glucose 125 H, Calcium 9.9, Total Bilirubin 0.2, AST 16, ALT 22, Alkaline Phosphatase 110, Total Protein 6.2 L, Albumin 3.2 L PFSH All Active Problems Left facial numbness (Acute) Arthritis of right glenohumeral joint (Acute) Rotator cuff tear arthropathy of right shoulder (Acute) Pancytopenia (Acute) Colonoscopy - MAC (Acute 12/03/15) Medical History Complete tear of left rotator cuff (06/24/16) Tubular adenoma of colon (12/23/15) IgA nephropathy Renal failure Seizure disorder Obstructive sleep apnea Depression Gout Hx of hyperlipidemia HTN (hypertension) Coronary artery disease Surgical History History of eye surgery History of coronary artery stent placement Hx of CABG Kidney transplant recipient Social History Smoking/Tobacco Use Status: Never Smoking risk assessment performed?: Yes Alcohol Intake: current Alcohol Intake frequency: holidays/special occasions only Alcohol type: hard liquor Drug use: Never Substance use type: does not use Housing: house Do you feel safe at home: Yes Do you feel safe in your relationship?: Yes Time Spent with Patient Time Spent with Patient: 45-69 minutes Time was spent: preparing to see the patient(eg.review tests), obtaining and/or reviewing separately otained hiistory, ordering medications,tests, procedures, referring, communicating with other health healthcare network pricing consultant, indepentently interpreting results, counseling the patient and care coordination
== END 2024-09-02 12:54 | disposition home or self-care (01) ==
LOC: ER 17:36 → MS 17:41
PROVIDERS: Admitting Provider Hospitalist; Emergency Provider Emergency Medicine; PCP Physician Assistant; Visit Provider Hospitalist
DX: R20.0 Anesthesia of skin (principal); I25.10 Atherosclerotic heart disease of native coronary artery without angina pectoris; I10 Essential (primary) hypertension; Z95.1 Presence of aortocoronary bypass graft; Z95.5 Presence of coronary angioplasty implant and graft; G47.33 Obstructive sleep apnea (adult) (pediatric); Z79.82 Long term (current) use of aspirin; G40.909 Epilepsy, unspecified, not intractable, without status epilepticus; Z79.899 Other long term (current) drug therapy; Z94.0 Kidney transplant status; E78.5 Hyperlipidemia, unspecified; D64.9 Anemia, unspecified; F32.A Depression, unspecified; N02.B1 Recurrent and persistent immunoglobulin A nephropathy with glomerular lesion; N19 Unspecified kidney failure; I35.0 Nonrheumatic aortic (valve) stenosis
CPT/HCPCS: 00123; 36415; 70496; 70498; 80053; 83690; 93005; 96360; 96372; 99285; J1650; 70551; 71045; 76705; 84484; 85025; 93010; 99222; 99232; 99239; G0378; J3490; J7512

== ENCOUNTER 2024-10-10 14:02 | Outpatient (CLI) | payer OTHER, MEDICARE, SELFPAY | END 2024-10-10 14:03 | disposition home or self-care (01) | PROVIDERS: PCP Physician Assistant; Visit Provider Physician Assistant | DX: G45.9 Transient cerebral ischemic attack, unspecified (principal) | CPT/HCPCS: 93246 ==

== ENCOUNTER 2024-11-05 08:02 | Outpatient (CLI) | payer OTHER, MEDICARE, SELFPAY ==
--- NOTE | 2024-11-05 11:59 | W.CARDEVENT ---
Date of service: 11/05/24 Time of Service: 11:59 Cardiac Event Recorder Referring Provider:: Avery Abbott Indications:: Palpitations Cardiac Event Note: This is a cardiac event monitor. Patient was monitored for 13 days and 18 hours. Rhythm throughout was sinus. Average heart rate was 65. Minimum was 47, maximum 149 There were occasional ventricular ectopic beats There were very rare atrial premature beats. There was no atrial fibrillation, no high-grade AV block, no pauses greater than 3 seconds. No symptoms were reported
== END 2024-11-05 08:03 | disposition home or self-care (01) ==
LOC: CARDOPNVT 08:02
PROVIDERS: PCP Physician Assistant; Visit Provider Internal Medicine Cardiovascular Disease
DX: R00.2 Palpitations (principal)
CPT/HCPCS: 93248

== ENCOUNTER 2024-11-12 16:47 | Outpatient (REF) | payer OTHER, MEDICARE, SELFPAY ==
[2024-11-12 16:56] LABS: Calculated LDL 54 mg/dL (<100); Cholesterol 101 mg/dL (<200); Ferritin 375 ng/mL (26-388); HDL Cholesterol 32 mg/dL (>or=40); Triglyceride 77 mg/dL (<150)
[2024-11-12 17:25] LABS: Iron 47 ug/dL (65-175)
== END 2024-11-12 16:48 | disposition home or self-care (01) ==
LOC: NCHCN 16:47
PROVIDERS: PCP Physician Assistant; Visit Provider Physician Assistant
DX: Z00.00 Encounter for general adult medical examination without abnormal findings (principal); D63.1 Anemia in chronic kidney disease
CPT/HCPCS: 80061; 82728; 83540